=== PATIENT | female | born 1980 | race Hispanic/Latino ===

== ENCOUNTER 2016-06-08 08:55 | Day surgery (SDC) | payer MEDICARE ==
[~2016-06-08 08:55] MED LIST: ANCEF/STERILE WATER 2 GM/20 ML 20 ML IV NR; NACL 0.9% 1000 ML 1,000 ML IV SCH
--- NOTE | 2016-06-08 09:16 | Anesthesia Consultation ---
Anesthesia Consult and Med Hx Date of service: 06/08/16 - Airway Anesthetic Teeth Evaluation: Good ROM Head & Neck: Adequate Mental/Hyoid Distance: Adequate Mallampati Class: Class III Intubation Access Assessment: Possibly Difficult - Pulmonary Exam CTA: Yes - Cardiac Exam Cardiac Exam: RRR - Pre-Operative Health Status ASA Pre-Surgery Classification: ASA3 Proposed Anesthetic Plan: General, MAC - Pulmonary Hx Smoking: No Hx Sleep Apnea: No - Cardiovascular System Hx Hypertension: Yes Hx Cardia Arrhythmia: No - Central Nervous System Hx Psychiatric Problems: Yes - Gastrointestinal Hx Gastroesophageal Reflux Disease: Yes (severe, took nexium this am) - Endocrine Hx Renal Disease: Yes (DIALYSIS --; right chest permacath) Hx End Stage Renal Disease: Yes Hx Insulin Dependent Diabetes: Yes Hx Non-Insulin Dependent Diabetes: Yes (on no meds since on dialysis) Hx Thyroid Disease: Yes Hx Hypothyroidism: Yes - Hematic Hx Anemia: Yes - Other Systems Hx Cancer: No
--- NOTE | 2016-06-08 09:18 | Anesthesia Day of Surgery ---
Anesthesia Day of Surgery - Day of Surgery Patient Examined: Yes Patient H&P Reviewed: Yes Patient is NPO: Yes Beta Blockers: (took blue pill this am, ? metoproplol)
[2016-06-08] MEDS ORDERED: NORCO 5/325 PO PRN (09:20)
[2016-06-08] MEDS ORDERED: ZOFRAN IV PRN (09:20)
[2016-06-08] MEDS ORDERED: NACL BACTERIOSTATIC INFILTRATI ONE (09:34)
[2016-06-08] MEDS ORDERED: DIPRIVAN 10 MG/ML IV ONE (09:43)
[2016-06-08] MEDS ORDERED: SUBLIMAZE ONE (09:43)
[2016-06-08] MEDS ORDERED: XYLOCAINE MPF 2% ONE (09:46)
[2016-06-08] MEDS ORDERED: VERSED IV NR (10:00)
[2016-06-08 10:18] LABS: BUN/Creatinine Ratio 6.9; Calcium 8.8 mg/dL (8.4-10.2); Chloride 99.2 mmol/L (98-107); Potassium 4.1 mmol/L (3.6-5.0)
[2016-06-08 10:39] LABS: Hemoglobin 8.2 gm/dl (10.1-14.3); Mean Corpuscular HGB Conc 33 % (30-34); Mean Corpuscular Hemoglobin 41 pg (28-32); Platelet Count 115 K/mm3 (140-440); Red Blood Count 1.99 M/mm3 (3.65-5.03); Red Cell Distribution Width 18.2 % (13.2-15.2); White Blood Count 8.8 K/mm3 (4.5-11.0)
[2016-06-08 10:41] LABS: Mean Corpuscular Volume 126 fl (79-97)
[2016-06-08 10:49] LABS: INR 1.22 (0.87-1.13)
[2016-06-08 11:22] LABS: Anisocytosis 2+; Basophils % (Manual) 0 % (0.0-1.8); Blastocytes % (Manual) 0 %; Macrocytosis 2+
[2016-06-08 11:23] LABS: Diff Status Complete; Helmet Cells Rare; Platelet Estimate Appears Decreased; Polychromasia 1+; Stomatocytes 2+; Tear Drop Cells Few
[2016-06-08] MEDS ORDERED: MARCAINE 0.5% INFILTRATI ONE (11:28)
[2016-06-08] MEDS ORDERED: NACL 0.9% IR ONE (11:28)
[2016-06-08] MEDS ORDERED: HEPARIN 10,000 UNITS/10 ML 2,000 UNIT in NACL 0.9% 500 ML 500 ML IR ONE (11:31)
[2016-06-08] MEDS ORDERED: HEPARIN 10,000 UNITS/10 ML ONE (11:37)
[2016-06-08] MEDS ORDERED: DECADRON ONE (12:19)
--- NOTE | 2016-06-08 12:40 | Short Stay Summary ---
Short Stay Documentation Date of service: 06/08/16 Narrative H&P: See H&P - History H&P: obtained from office - Allergies and Medications Current Medications: Allergies metformin Adverse Reaction (Intermediate, Verified 01/10/16 02:52) Vomiting colchicine [From Colcrys] Adverse Reaction (Verified 01/10/16 02:52) Unknown quetiapine fumarate [From Seroquel] Adverse Reaction (Verified 01/10/16 02:52) HYPER Insomnia Home Medications Medication Instructions Recorded Confirmed Last Taken Type ARIPiprazole [Abilify TAB] 15 mg PO DAILY 07/21/15 06/07/16 06/07/16 20:00 History Divalproex ER [Depakote ER] 500 mg PO QDAY 07/21/15 06/07/16 06/07/16 20:00 History Levothyroxine [Synthroid] 25 mcg PO QAM 07/21/15 06/07/16 06/08/16 08:30 History Metoprolol [Lopressor TAB] 25 mg PO BID 07/21/15 06/07/16 06/07/16 20:00 History Oxybutynin [Ditropan] 5 mg PO BID 07/21/15 06/07/16 06/08/16 08:30 History Calcium Acetate 667 mg PO TID 11/01/15 06/07/16 06/07/16 20:00 History Docusate Sodium [Colace CAP] 1 tab PO DAILY 11/01/15 06/07/16 06/07/16 20:00 History FLUoxetine HCL [PROzac] 40 mg PO QDAY 11/01/15 06/07/16 06/07/16 20:00 History Esomeprazole Magnesium [NexIUM] 40 mg PO QDAY 11/16/15 06/07/16 06/08/16 08:30 History Mirtazapine 15 mg PO QDAY 11/16/15 06/07/16 06/07/16 20:00 History Dicyclomine [Bentyl] 10 mg PO TID PRN #15 capsule 01/12/16 06/07/16 06/07/16 20: 00 Rx ALBUTEROL Inhaler [ProAir HFA 2 puff IH QID PRN #1 inhalation 02/07/16 06/08/16 05/24/16 Rx Inhaler] hydrALAZINE [Apresoline TAB] 25 mg PO Q12H #60 tablet 05/20/16 06/07/16 08:30 Rx Warfarin [Coumadin] 2.5 mg PO QDAY 06/07/16 06/08/16 06/06/16 History Active Medications Hydromorphone HCl (Dilaudid) 0.25 mg IV Q10MIN PRN PRN Reason: Pain, Moderate (4-6) Stop: 06/11/16 09:21 Cefazolin Sodium (Ancef/Sterile Water 2 Gm/20 Ml) 20 mls @ 80 mls/hr IV PREOP NR PRN Reason: Protocol Stop: 06/09/16 00:05 Sodium Chloride (Nacl 0.9% 1000 Ml) 1,000 mls @ 42 mls/hr IV DIRECT LOUANN Last Admin: 06/08/16 10:25 Dose: 42 mls/hr Midazolam HCl (Versed) 2 mg IV PREOP NR Stop: 06/08/16 23:59 Last Admin: 06/08/16 10:38 Dose: 2 mg - Brief post op/procedure progress note Date of procedure: 06/08/16 Pre-op diagnosis: ESRD Post-op diagnosis: same Procedure: Creation of Left Femoral Artery to Left Femoral Vein AVG with 4-7 Step Propaten Graft Anesthesia: GETA Surgeon: EDWIGE GIRON Estimated blood loss: 50-100ml Pathology: none Condition: stable - Disposition Condition at discharge: Good Disposition: DISCHARGED TO HOME OR SELFCARE Short Stay Discharge Plan Activity: no restrictions, other Wound: open to air, keep clean and dry, other (Okay to wash the wound with soap and water but do not soak in water) Follow up with: EDWIGE GIRON MD [Staff Physician] - 14 Days Prescriptions: HYDROcodone/APAP 7.5-325 [[place] 7.5/325] 1 each PO Q6HR PRN #60 tablet PRN Reason: Pain
[2016-06-08] MEDS ORDERED: NACL 0.9% 500 ML ONE (13:00)
[2016-06-08] MEDS: DILAUDID IV PRN ×2 (13:12→13:23)
--- NOTE | 2016-06-08 13:33 | Post Anesthesia Evaluation ---
- Post Anesthesia Evaluation Patient Participated: Yes Airway Patent: Yes Stable Respiratory Function: Yes Nausea/Vomiting: No Temp > 96.8F: Yes Pain Manageable: Yes Adequeate Hydration: Yes Anesthesia Complications: No Block Receding Appropriately: Not Applicable Patient on Ventilator: No
[2016-06-08] MEDS ORDERED: HEPARIN 10,000 UNITS/10 ML IV ONE (14:05)
--- NOTE | 2016-06-08 14:11 | Admit Criteria Form ---
Admission Criteria Documentation: AMBULATORY SURGERY EXCEPTION CRITERIA Ambulatory Surgery Exception Criteria ( Place 'X' for any and all applicable criteria): Surgery or procedure performed on ambulatory basis may require inpatient stay for[A] ANY ONE of the following(1)(2)(3)(4)(5)(6)(7)(8)(9): [] I. A preoperative situation, condition, or finding that warrants inpatient stay as indicated by ANY ONE of the following: [] a) Inpatient care needed because of severity of a disease or condition rather than the surgery (eg, severe cardiac or respiratory disease, severe infection) (15) (16 ) (17) (18) [] b) Emergent procedure (eg, angioplasty for acute ischemia)(19) [] c) Complex surgical approach or situation as indicated by ANY ONE of the following(3): [] i) Open approach needed instead of usual endoscopic, transcatheter, or other less invasive procedure [] ii) Difficult approach because of previous operation [] iii) Airway monitoring required after open neck procedures(20)(21) [] iv) Large mass requiring unusually extensive dissection [] v) Additional complicating feature requiring inpatient care (eg, drain management)(22(23): [] d) Major surgery in a pt with high anesthetic risk as indicated by ANY ONE of the following (2)(3)(5)(7)(8): [] i) ASA risk class III or higher (severe systemic disease impairing function) [D] [] ii) Advanced age (eg, older than 85 years)(14)(24) [] iii) Symptomatic heart failure(25) [] iv) Symptomatic asthma or COPD(8)(21) [] v) Morbid obesity with hemodynamic or respiratory problems(20)( 21)(26)(27) [] vi) Obstructive sleep apnea(20)(21) [] vii) Former premature infants who are younger than 60 weeks [] viii) High risk for severe postoperative abnormalities (eg, severe postoperative hypocalcemia after parathyroidectomy for severe hyperparathyroidism)(27)( 28) [] ix) Unstable angina(25) [] e) Drug-related risk requiring inpatient stay as indicated by ANY ONE of the following(5)(10)(14)(32)(33) [] i) Procedure requires discontinuing drugs or other therapy (eg , antiarrhythmic medication, antiseizure medication), which necessitates inpatient observation or treatment.(18)(31) [] ii) Major surgery and high risk drug use as indicated by ANY ONE of the following: [] 1) Active abuse of cocaine or similar drug [] 2) Monoamine oxidase inhibitor use [] 3) Other drug identified as posing risk [] f) Inadequate outpatient care situation as indicated by ANY ONE of the following(5)(10)(14)(32)(33) [] i) Patient lives remote from medical facility and procedure has urgent complication potential, and temporary nearby residence cannot be arranged [] ii) Patient will have postprocedure incapacitation and inadequate assistance at home, or alternative level of care cannot be arranged. [] iii) Patient will have long general anesthesia or procedure side effect resolution time, and competent person to stay with patient on first postoperative night at home or alternative level of care cannot be arranged. []iv) Other inadequate outpatient situation that cannot be handled by other means [] II. A perioperative event, condition, or finding that warrants inpatient stay as indicated by ANY ONE of the following (1)(2)(3): [] a) Inadequate physiologic recovery: cardiovascular, respiratory, or hemodynamic status not normal or near preoperative baseline(18) [] b) Hemodynamic instability [] c) Patient not alert with near normal or baseline mental status [] d) Temperature not normal or as expected and not appropriate for outpatient treatment of condition [] e) Ambulatory or appropriate activity level status not yet achieved post procedure [E](34)(35)(36) [] f) Operative site not appropriate (eg, unexpected or excessive drainage or bleeding) [] g) Postoperative effects not resolved or adequately managed (eg, significant pain or vomiting not appropriate for outpatient or next level of care)(10)(12) [] h) Complicating features requiring inpatient care as indicated by ANY ONE of the following(37): [] i) Severe complications of procedure (eg, bowel injury, airway compromise, vascular injury,severe hemorrhage) [] ii) Extensive (eg, dissection far beyond usual scope of procedure ) or prolonged (eg, 120 minutes beyond usual) surgery needed requiring inpatient postoperative care [] iii) Conversion to an open or complex procedure that requires inpatient care (eg, open vs laparoscopic cholecystectomy, abdominal vs vaginal hysterectomy)(38) [] iv) Comorbid condition or test result identified during or post procedure that requires inpatient care (7) [] v) Malignant hyperthermia(30) [] vi) Other complicating feature requiring inpatient care(22)(23) Inpatient stay may be needed until ALL of the following are present (1)(2)(3)(4) (5)(6)(10)(14)(33)(40): []a) Physiologic recovery: cardiovascular, respiratory, and hemodynamic status normal or near preoperative baseline []b) Hemodynamic stability []c) Patient alert, with near normal or baseline mental status []d) Temperature appropriate: patient afebrile or temperature appropriate for outpt treatment of condition []e) Activity level appropriate: ambulatory or appropriate activity level post procedure []f) Operative site appropriate as indicated by ALL of the following: []i) Site dry or with expected drainage []ii) Any blood noted is as expected for procedure. []g) Postoperative effects resolved or managed as indicated by ALL of the following: []i) Pain management appropriate for outpatient (or next level of) care(10) []ii) Minimal nausea and vomiting: if present, successfully treated with oral medication(12) []iii) Headache, dizziness, or drowsiness (if present) are mild. []h) Voiding status acceptable as indicated by ANY ONE of the following: []i) Voiding spontaneously []ii) No voiding but instructions given for follow-up in 6 to 8 hours []iii) Urinary catheter in place, and instructions given for follow-up []i) Complicating features requiring inpatient care manageable at a lower level of care(37) []j) Comorbid conditions manageable at a lower level of care(37) The original [employer] content created by [employer] has been revised. The portions of the content which have been revised are identified through the use of italic text or in bold, and [facility] has neither reviewed nor approved the modified material. All other unmodified content is copyright [employer]. Please see references footnoted in the original [facility] edition 2016 Admission Criteria Met: Pending
[2016-06-08] MEDS ORDERED: HEPARIN IV ONE ×3 (15:00→17:00)
[2016-06-08] MEDS ORDERED: NORCO 7.5/325 PO PRN (15:21)
--- NOTE | 2016-06-08 15:48 | Operative Report ---
Operative Report Operative Report: Date of Procedure: 06/08/2016 Pre-operative Diagnosis: End-stage renal disease Post-operative Diagnosis: Same Procedure(s): 1. Creation of Left Femoral Artery To Left Femoral Vein Arteriovenous Loop Graft with 4-7 Propaten Step Graft Surgeon: Cal Costello M.D. Blocker Metal Base: None Anesthesia: Gen. endotracheal anesthesia EBL: Minimal Counts: Correct Complications: None Condition: Stable Findings: Successful creation of left thigh loop graft with excellent thrill and distal pulses at the end the case. Specimen: None Indication: The patient is a 36-year-old female with a history of end-stage renal disease was previous access in her upper extremity. 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 Given this central venous occlusion she is in need of her lower extremity access. She was given the risk , benefits, and alternative procedures and consented to procedure. Description of Procedure: The patient was brought to the operating room and laid in supine position. After general endotracheal anesthesia was achieved the left leg was prepped and draped in a sterile fashion. A longitudinal incision was created in the groin and carried down to the common femoral artery by sharp dissection. The artery was dissected out circumferentially and then control vessels. The femoral vein was then dissected out through the same incision using sharp dissection. The vein was then controlled with vessel loops. I used a Mey wick tunneler to tunnel the graft in a loop fashion also requiring a counterincision for the midportion of the tract. Once I pulled the graft tract and ensured that it was not kinked or twisted systemically heparinized patient. After heparinizing the patient I clamped the femoral artery and created an arteriotomy using 11 blade and Suárez scissors. I created end-to-side anastomosis with the 4 mm portion of the propaten graft and a 6-0 Prolene in a running fashion. After completing the anastomosis and released the clamps allow flow into the graft which had an excellent inflow. I then clamped the graft just distal to the anastomosis and beveled the venous sample. I clamped the femoral vein using a Satinsky clamp and then created a venotomy using an 11 blade and Suárez scissors. I then created an end-to-side anastomosis using a 6-0 Prolene in running fashion. After completing the anastomosis I released all clamps allowing flow through the graft which had an excellent thrill. Hemostasis within the wound was achieved with quick clot. Once hemostasis was achieved the wounds were anesthetized with Marcaine and counterincision was then closed in 2 layers using a 3-0 Vicryl in interrupted fashion and the deep dermal layer and a 4-0 Monocryl in interrupted fashion and the subcuticular then dressed with Dermabond. The groin wound was closed in 3 layers using 3-0 Vicryl in running fashion the deep layer. A 3-0 Vicryl was then used in running fashion to reapproximate the deep dermal layer. A 4-0 Monocryl was then used in running fashion subcuticular and the wound was then dressed with Dermabond. The patient tolerated the procedure well. All sponge, needle, and instrument counts were correct. The patient was taken to the recovery area in stable condition.
[2016-06-08 16:50] VITALS: BP 135/78
== END 2016-06-08 16:30 | disposition home or self-care (01) ==
LOC: OR 08:55
PROVIDERS: ATTEND Surgery Vascular Surgery
DX: E11.22 Type 2 diabetes mellitus with diabetic chronic kidney disease (principal); N18.6 End stage renal disease; Z99.2 Dependence on renal dialysis; E03.9 Hypothyroidism, unspecified; K21.9 Gastro-esophageal reflux disease without esophagitis; F20.89 Other schizophrenia; M10.9 Gout, unspecified; M19.90 Unspecified osteoarthritis, unspecified site
CPT/HCPCS: 36415; 36825; 80048; 81025; 82962; 85007; 85025; 85610; C1768; J0690; J1100; J1170; J1644; J2250; J2405; J2704; J3010; J7030; J7040

== ENCOUNTER 2016-06-11 15:19 | Inpatient (IN) | payer MEDICARE ==
--- NOTE | 2016-06-11 17:31 | Emergency Department Report ---
Chief Complaint: Dyspnea/Respdistress Stated Complaint: AYO/NUMBNESS IN LEFT LEG Time Seen by Provider: 06/11/16 17:26 - HPI History of Present Illness: Patient reports difficulty breathing during exertion, intermittent chest pain, tingling around the mouth, right arm and left leg that started at 0830 am, that progressively worsen during dialysis after 1 hour and 5 minutes of treatment. She was referred to the hospital by the physician at the dialysis center - [facility] Review of Systems: all other systems are unremarkable except for documentation in HPI - Exam Vital Signs: Vital Signs 06/11/16 15:38 Temperature 97.8 F Pulse Rate 93 H Respiratory 20 Rate Blood Pressure 118/71 O2 Sat by Pulse 98 Oximetry Physical Exam: Gen: well developed, NAD Cardio: heart sounds present S1-S2, no ectopy, murmur or gallops Resp: even and unlabored, lungs CTA dianna, no wheezes, rales or rhonchi MSE screening note: Focused history and physical exam performed. Due to findings the following was ordered: laboratory and radiology studies ordered ED Disposition for MSE Condition: Stable
[2016-06-11 18:40] LABS: INR 1.31 (0.87-1.13)
[2016-06-11 18:41] LABS: Partial Thromboplastin Time 41.2 Sec. (24.2-36.6)
[2016-06-11 18:58] LABS: Hemoglobin TNR gm/dl (10.1-14.3); Red Blood Count TNR M/mm3 (3.65-5.03); White Blood Count TNR K/mm3 (4.5-11.0)
[2016-06-11 18:59] LABS: Hematocrit TNR % (30.3-42.9); Mean Corpuscular HGB Conc TNR % (30-34); Mean Corpuscular Hemoglobin TNR pg (28-32); Mean Corpuscular Volume TNR fl (79-97)
[2016-06-11 19:00] LABS: Basophils % (Auto) TNR % (0.0-1.8); Diff Status TNR; Eosinophils % (Auto) TNR % (0.0-4.3); Mean Platelet Volume TNR fl (6-12); Platelet Count TNR K/mm3 (140-440); Red Cell Distribution Width TNR % (13.2-15.2)
[2016-06-11 19:35] LABS: Hematocrit 27.2 % (30.3-42.9); Hemoglobin 8.5 gm/dl (10.1-14.3); Mean Corpuscular HGB Conc 31 % (30-34); Mean Corpuscular Hemoglobin 41 pg (28-32); Platelet Count 184 K/mm3 (140-440); Red Blood Count 2.06 M/mm3 (3.65-5.03); Red Cell Distribution Width 18.6 % (13.2-15.2); White Blood Count 17.6 K/mm3 (4.5-11.0)
[2016-06-11 19:39] LABS: Mean Corpuscular Volume 132 fl (79-97)
[2016-06-11 20:15] LABS: Creatine Kinase MB 2.3 ng/mL (0.0-4.0)
[2016-06-11 20:18] LABS: Albumin 4.4 g/dL (3.9-5); Albumin/Globulin Ratio 1.5 %; Alkaline Phosphatase 64 units/L (35-129); Anion Gap 28 mmol/L; BUN/Creatinine Ratio 6.77; Bilirubin,Total 0.4 mg/dL (0.1-1.2); Blood Urea Nitrogen 40 mg/dL (7-17); Calcium 8.7 mg/dL (8.4-10.2); Carbon Dioxide 20 mmol/L (22-30); Chloride 92.3 mmol/L (98-107); Creatine Kinase 30 units/L (30-135); Glucose 144 mg/dL (65-100); Potassium 4.5 mmol/L (3.6-5.0); Sodium 136 mmol/L (137-145); Total Protein 7.4 g/dL (6.3-8.2)
[2016-06-11 20:19] LABS: Alanine Aminotransferase < 5 units/L (7-56)
[2016-06-11 20:52] LABS: Blastocytes % (Manual) 0 %
[2016-06-11 20:53] LABS: Anisocytosis 2+; Basophils % (Manual) 0 % (0.0-1.8); Eosinophils % (Manual) 0 % (0.0-4.3); Macrocytosis 3+
[2016-06-11 20:54] LABS: Stomatocytes 1+
[2016-06-11 20:55] LABS: Hypochromasia 1+; Polychromasia 1+; Tear Drop Cells 1+
[2016-06-11 20:57] LABS: Diff Status Complete; Giant Platelets Few; Large Platelets Few; Platelet Estimate Consistent w Auto; Poikilocytosis 1+
[2016-06-12] MEDS ORDERED: SUBLIMAZE IV ONE (00:22)
[2016-06-12] MEDS ORDERED: ZOFRAN IV ONE (00:22)
--- NOTE | 2016-06-12 00:30 | Emergency Department Report ---
HPI - General Chief Complaint: Dyspnea/Respdistress Time Seen by Provider: 06/12/16 00:01 - HPI HPI: Room 3 The patient is a 36-year-old female presenting with a chief complaint of chest pain and paresthesia. The patient states when she awakened this morning at 08: 0 she had numbness and tingling in her left foot and right arm in addition to both lateral facial numbness. Patient states she also had left chest pain which was sharp and pressure-like in nature associated with shortness of breath and nausea. Patient denies vomiting. The patient states she told her high lift driver this morning with the high lift driver Center to hemodialysis. Patient receive hemodialysis for 1 hour and 5 minutes but her symptoms worsened so hemodialysis. The patient was sent to the ED. The patient states she is still symptomatic and currently gives her pain a score of 10/10 Location: [see above] Duration: [see above] Quality: [see above] Severity: 10/10 Modifying factors: [see above] Context: [see above] Mode of transportation: [not driving] ED Past Medical Hx - Past Medical History Hx Hypertension: Yes Hx Diabetes: Yes Hx GERD: Yes Hx Renal Disease: Yes (DIALYSIS M-W-; right chest permacath) Hx Arthritis: Yes Hx Kidney Stones: Yes Hx Psychiatric Treatment: Yes (bipolar/ SCHIZOPHRENIA) Additional medical history: Gout; thyroid, hyperlipedemia - Surgical History Additional Surgical History: Foot surgery. PERMA CATH RIGHT LEG. AV graft placement to right arm. - Family History Family history: no significant - Social History Smoking Status: Never Smoker Substance Use Type: None - Medications Home Medications: Home Medications Medication Instructions Recorded Confirmed Last Taken Type ARIPiprazole [Abilify TAB] 15 mg PO DAILY 07/21/15 06/07/16 06/07/16 20:00 History Divalproex ER [Depakote ER] 500 mg PO QDAY 07/21/15 06/07/16 06/07/16 20:00 History Levothyroxine [Synthroid] 25 mcg PO QAM 07/21/15 06/07/16 06/08/16 08:30 History Metoprolol [Lopressor TAB] 25 mg PO BID 07/21/15 06/07/16 06/07/16 20:00 History Oxybutynin [Ditropan] 5 mg PO BID 07/21/15 06/07/16 06/08/16 08:30 History Calcium Acetate 667 mg PO TID 11/01/15 06/07/16 06/07/16 20:00 History Docusate Sodium [Colace CAP] 1 tab PO DAILY 11/01/15 06/07/16 06/07/16 20:00 History FLUoxetine HCL [PROzac] 40 mg PO QDAY 11/01/15 06/07/16 06/07/16 20:00 History Esomeprazole Magnesium [NexIUM] 40 mg PO QDAY 11/16/15 06/07/16 06/08/16 08:30 History Mirtazapine 15 mg PO QDAY 11/16/15 06/07/16 06/07/16 20:00 History Dicyclomine [Bentyl] 10 mg PO TID PRN #15 capsule 01/12/16 06/07/16 06/07/16 20: 00 Rx ALBUTEROL Inhaler [ProAir HFA 2 puff IH QID PRN #1 inhalation 02/07/16 06/08/16 05/24/16 Rx Inhaler] hydrALAZINE [Apresoline TAB] 25 mg PO Q12H #60 tablet 05/20/16 06/07/16 08:30 Rx Warfarin [Coumadin] 2.5 mg PO QDAY 06/07/16 06/08/16 06/06/16 History HYDROcodone/APAP 7.5-325 [[place] 1 each PO Q6HR PRN #60 tablet 06/08/16 Unknown Rx 7.5/325] ED Review of Systems ROS: Stated complaint: AYO/NUMBNESS IN LEFT LEG Other details as noted in HPI Comment: All other systems reviewed and negative Constitutional: denies: chills, fever Eyes: denies: eye pain, eye discharge, vision change ENT: denies: ear pain, throat pain Respiratory: shortness of breath Cardiovascular: chest pain Endocrine: no symptoms reported Gastrointestinal: nausea. denies: vomiting Genitourinary: denies: urgency, dysuria, discharge Musculoskeletal: denies: back pain, joint swelling, arthralgia Skin: denies: rash, lesions Neurological: paresthesias Psychiatric: denies: anxiety, depression Hematological/Lymphatic: denies: easy bleeding, easy bruising Physical Exam - Physical Exam Vital Signs: Vital Signs 06/11/16 06/11/16 06/11/16 15:38 23:30 23:56 Temperature 97.8 F 98.7 F Pulse Rate 93 H 89 Respiratory 20 14 14 Rate Blood Pressure 118/71 Blood Pressure 126/84 [Left] O2 Sat by Pulse 98 99 99 Oximetry Physical Exam: GENERAL: The patient is well-nourished female lying on stretcher not appearing to be in acute distress. [] HEENT: Atraumatic. Extraocular motions are intact. Patient has moist mucous membranes. NECK: Supple. Trachea midline CHEST/LUNGS: Clear to auscultation. There is no respiratory distress noted. HEART/CARDIOVASCULAR: Regular. There is no tachycardia. There is no gallop rub or murmur. ABDOMEN: Abdomen is soft, nontender. Patient has normal bowel sounds. There is no abdominal distention. SKIN: There is no rash. There is no edema. There is no diaphoresis. NEURO: The patient is awake, alert, and oriented. The patient is cooperative. The patient has no focal neurologic deficits. The patient has normal speech. Cranial nerves II through XII grossly intact, no drift. Sensation equal bilaterally MUSCULOSKELETAL: There is no evidence of acute injury. ED Course Vital Signs 06/11/16 06/11/16 06/11/16 15:38 23:30 23:56 Temperature 97.8 F 98.7 F Pulse Rate 93 H 89 Respiratory 20 14 14 Rate Blood Pressure 118/71 Blood Pressure 126/84 [Left] O2 Sat by Pulse 98 99 99 Oximetry ED Medical Decision Making - Lab Data Result diagrams: 06/11/16 19:15 06/11/16 19:15 Laboratory Tests 06/11/16 06/11/16 06/11/16 18:04 18:04 19:15 WBC TNR RBC TNR Hgb TNR Hct TNR MCV TNR MCH TNR MCHC TNR RDW TNR Plt Count TNR Lymph % (Auto) TNR [place] % (Auto) TNR Eos % (Auto) TNR Baso % (Auto) TNR Lymph # TNR [place] # TNR Eos # TNR Baso # TNR Add Manual Diff TNR Total Counted Cancelled Seg Neutrophils % TNR Seg Neuts % (Manual) Cancelled Band Neutrophils % Cancelled Lymphocytes % (Manual) Cancelled Reactive Lymphs % (Man) Cancelled Monocytes % (Manual) Cancelled Eosinophils % (Manual) Cancelled Basophils % (Manual) Cancelled Metamyelocytes % Cancelled Myelocytes % Cancelled Promyelocytes % Cancelled Blast Cells % Cancelled Nucleated RBC % Cancelled Seg Neutrophils # TNR Seg Neutrophils # Man Cancelled Band Neutrophils # Cancelled Lymphocytes # (Manual) Cancelled Abs React Lymphs (Man) Cancelled Monocytes # (Manual) Cancelled Eosinophils # (Manual) Cancelled Basophils # (Manual) Cancelled Metamyelocytes # Cancelled Myelocytes # Cancelled Promyelocytes # Cancelled Blast Cells # Cancelled WBC Morphology Cancelled Hypersegmented Neuts Cancelled Hyposegmented Neuts Cancelled Hypogranular Neuts Cancelled Hypersegmented Polys Cancelled Smudge Cells Cancelled Toxic Granulation Cancelled Toxic Vacuolation Cancelled Dohle Bodies Cancelled Pelger-Huet Anomaly Cancelled Le Rods Cancelled Platelet Estimate Cancelled Clumped Platelets Cancelled Plt Clumps, EDTA Cancelled Large Platelets Cancelled Giant Platelets Cancelled Platelet Satelliting Cancelled Plt Morphology Comment Cancelled RBC Morphology Cancelled Dimorphic RBCs Cancelled Polychromasia Cancelled Hypochromasia Cancelled Poikilocytosis Cancelled Basophilic Stippling Cancelled Anisocytosis Cancelled Microcytosis Cancelled Macrocytosis Cancelled Spherocytes Cancelled Pappenheimer Bodies Cancelled Sickle Cells Cancelled Target Cells Cancelled Tear Drop Cells Cancelled Ovalocytes Cancelled Stomatocytes Cancelled Helmet Cells Cancelled [place] Bodies Cancelled [place] Rings Cancelled [place] Cells Cancelled Bite Cells Cancelled Crenated Cell Cancelled Elliptocytes Cancelled Acanthocytes (Spur) Cancelled Rouleaux Cancelled Hemoglobin C Crystals Cancelled Schistocytes Cancelled Malaria parasites Cancelled Abdiel Bodies Cancelled Hem Pathologist Commnt Cancelled PT 16.2 H INR 1.31 H APTT 41.2 H Sodium 136 L Potassium 4.5 Chloride 92.3 L Carbon Dioxide 20 L Anion Gap 28 BUN 40 H Creatinine 5.9 H Estimated GFR 8 BUN/Creatinine Ratio 6.77 Glucose 144 H Calcium 8.7 Total Bilirubin 0.4 AST 25 ALT < 5 L Alkaline Phosphatase 64 Total Creatine Kinase 30 CK-MB (CK-2) 2.3 CK-MB (CK-2) Rel Index 7.6 H Troponin T < 0.010 Total Protein 7.4 Albumin 4.4 Albumin/Globulin Ratio 1.5 Valproic Acid 06/11/16 06/11/16 06/12/16 19:15 19:25 00:45 WBC 17.6 H RBC 2.06 L Hgb 8.5 L Hct 27.2 L MCV 132 H MCH 41 H MCHC 31 RDW 18.6 H Plt Count 184 Lymph % (Auto) [place] % (Auto) Eos % (Auto) Baso % (Auto) Lymph # [place] # Eos # Baso # Add Manual Diff Complete Total Counted 100 Seg Neutrophils % Seg Neuts % (Manual) 72.0 H Band Neutrophils % 2.0 Lymphocytes % (Manual) 14.0 Reactive Lymphs % (Man) 0 Monocytes % (Manual) 7.0 Eosinophils % (Manual) 0 Basophils % (Manual) 0 Metamyelocytes % 5.0 Myelocytes % 0 Promyelocytes % 0 Blast Cells % 0 Nucleated RBC % 6.0 H Seg Neutrophils # Seg Neutrophils # Man 12.7 H Band Neutrophils # 0.4 Lymphocytes # (Manual) 2.5 Abs React Lymphs (Man) 0.0 Monocytes # (Manual) 1.2 H Eosinophils # (Manual) 0.0 Basophils # (Manual) 0.0 Metamyelocytes # 0.9 Myelocytes # 0.0 Promyelocytes # 0.0 Blast Cells # 0.0 WBC Morphology Not Reportable Hypersegmented Neuts Not Reportable Hyposegmented Neuts Not Reportable Hypogranular Neuts Not Reportable Hypersegmented Polys Smudge Cells Not Reportable Toxic Granulation Not Reportable Toxic Vacuolation Not Reportable Dohle Bodies Not Reportable Pelger-Huet Anomaly Not Reportable Le Rods Not Reportable Platelet Estimate Consistent w auto Clumped Platelets Not Reportable Plt Clumps, EDTA Not Reportable Large Platelets Few Giant Platelets Few Platelet Satelliting Not Reportable Plt Morphology Comment Not Reportable RBC Morphology Not Reportable Dimorphic RBCs Not Reportable Polychromasia 1+ Hypochromasia 1+ Poikilocytosis 1+ Basophilic Stippling Anisocytosis 2+ Microcytosis Not Reportable Macrocytosis 3+ Spherocytes Not Reportable Pappenheimer Bodies Not Reportable Sickle Cells Not Reportable Target Cells Not Reportable Tear Drop Cells 1+ Ovalocytes Not Reportable Stomatocytes 1+ Helmet Cells Not Reportable [place] Bodies Not Reportable [place] Rings Not Reportable [place]y Cells Not Reportable Bite Cells Not Reportable Crenated Cell Not Reportable Elliptocytes Not Reportable Acanthocytes (Spur) Not Reportable Rouleaux Not Reportable Hemoglobin C Crystals Not Reportable Schistocytes Not Reportable Malaria parasites Not Reportable Abdiel Bodies Not Reportable Hem Pathologist Commnt No PT INR APTT Sodium Potassium Chloride Carbon Dioxide Anion Gap BUN Creatinine Estimated GFR BUN/Creatinine Ratio Glucose Calcium Total Bilirubin AST ALT Alkaline Phosphatase Total Creatine Kinase CK-MB (CK-2) CK-MB (CK-2) Rel Index Troponin T < 0.010 Total Protein Albumin Albumin/Globulin Ratio Valproic Acid 6.4 L - EKG Data -: EKG Interpreted by Me EKG shows normal: sinus rhythm Rate: normal - EKG Data When compared to previous EKG there are: no significant change Interpretation: unchanged when compared t (05/25/2016) - Radiology Data Radiology results: report reviewed (CT head), image reviewed (chest x-ray, CT head) interpreted by me: Chest x-ray-no focal infiltrates, no pneumothorax CT head (read by radiologist)-there is no evidence of an acute intracranial process - Differential Diagnosis CVA, ACS, pericarditis, GERD Critical care attestation.: If time is entered above; I have spent that time in minutes in the direct care of this critically ill patient, excluding procedure time. ED Disposition Clinical Impression: Chest pain, ESRD (end stage renal disease) on dialysis, Left leg numbness, Right arm numbness Disposition: OP ADMITTED IP TO THIS HOSP Is pt being admited?: Yes Does the pt Need Aspirin: Yes Condition: Fair Instructions: Chest Pain (ED) Time of Disposition: 01:50 (hospitalist paged)
--- NOTE | 2016-06-12 01:22 | Cat Scan Report ---
FINAL REPORT PROCEDURE: CT HEAD/BRAIN WO CON TECHNIQUE: Computerized tomography of the head was performed without contrast material. HISTORY: RUE and LLE numbness COMPARISON: No prior studies are available for comparison. FINDINGS: Skull and scalp: Normal. Paranasal sinuses: Normal. Ventricles and subarachnoid spaces: Normal. Cerebrum: No evidence of hemorrhage, acute infarction or mass . Cerebellum and brainstem: No evidence of hemorrhage, acute infarction or mass. Vasculature: Normal. Comments: None. IMPRESSION: There is no evidence of an acute intracranial process
[2016-06-12] MEDS ORDERED: ASPIRIN PO ONE (01:50)
[2016-06-12] MEDS ORDERED: BENTYL PO PRN (02:32)
--- NOTE | 2016-06-12 03:02 | Admit Criteria Form ---
Admission Criteria Documentation: RENAL FAILURE, CHRONIC Clinical Indications for Admission to Inpatient Care (Place 'X' for any and all applicable criteria): Admission is indicated for ANY ONE of the following (1)(2)(3)(4)(5): [X ]I. Inpatient admission required rather than observation care (Use Renal Failure, Chronic: Observation Care Criteria as appropriate) because of ANY ONE of the following: [ ]a) Volume overload or uremic symptoms (eg, clinically significant pulmonary edema, hypertension, pericarditis, acidosis) too severe for, or not responsive (eg, for over 24 hours) to emergency department or observation care dialysis or treatment regimen (11) [ ]b) Hemodynamic instability that is severe or persistent [ ]c) Respiratory distress that is severe or persistent (11) [ ]d) Clinically significant electrolyte abnormality that requires inpatient care (eg,hyperkalemia with severe ECG findings)[B] [ ]e) Supplement O2 or respiratory therapy for over 24hrs that is performable only in acute inpatient setting [ ]f) Continuous IV infusion of anticoagulation, platelet inhibitor, vasoactive, or Antiarrhythmic medication (15), [ ]g) Pulmonary artery catheter monitoring [ ]h) Temporary pacemaker placement [ ]i) Emergent pericardiocentesis [X ]j) Other condition, treatment or monitoring requiring inpatient admission [ ]II. Unexplained syncope [A] [ ]III. Recurrent seizures [ ]IV. Severe infections not treatable in outpatient setting (eg, peritonitis)(9 ) [ ]V. Cardiac arrhythmias of immediate concern [ ]. Encephalopathy [ ]VII.Bleeding abnormalities (eg, platelet dysfunction) with active (eg, gastrointestinal) bleeding Extended stay beyond goal length of stay may be needed for (3)(4)(35)(36): [ ]a) Continuing uremic complications [ ]b) Comorbidities or complications The original [employer] content created by [employer] has been revised. The portions of the content which have been revised are identified through the use of italic text or in bold, and [email or web address] has neither reviewed nor approved the modified material. All other unmodified content is copyright [employer]. Please see references footnoted in the original [email or web address] edition 2016 Admission Criteria Met: Yes
[2016-06-12] MEDS ORDERED: SUBLIMAZE ONE (03:41)
--- NOTE | 2016-06-12 05:41 | History and Physical Report ---
History of Present Illness Date of admission: 06/12/16 02:35 Medications and Allergies Allergies Allergy/AdvReac Type Severity Reaction Status Date / Time metformin AdvReac Intermediate Vomiting Verified 01/10/16 02:52 colchicine [From Colcrys] AdvReac Unknown Verified 01/10/16 02:52 quetiapine fumarate AdvReac HYPER Verified 01/10/16 02:52 [From Seroquel] Home Medications Medication Instructions Recorded Confirmed Last Taken Type ARIPiprazole [Abilify TAB] 15 mg PO DAILY 07/21/15 06/07/16 06/07/16 20:00 History Divalproex ER [Depakote ER] 500 mg PO QDAY 07/21/15 06/07/16 06/07/16 20:00 History Levothyroxine [Synthroid] 25 mcg PO QAM 07/21/15 06/07/16 06/08/16 08:30 History Metoprolol [Lopressor TAB] 25 mg PO BID 07/21/15 06/07/16 06/07/16 20:00 History Oxybutynin [Ditropan] 5 mg PO BID 07/21/15 06/07/16 06/08/16 08:30 History Calcium Acetate 667 mg PO TID 11/01/15 06/07/16 06/07/16 20:00 History Docusate Sodium [Colace CAP] 1 tab PO DAILY 11/01/15 06/07/16 06/07/16 20:00 History FLUoxetine HCL [PROzac] 40 mg PO QDAY 11/01/15 06/07/16 06/07/16 20:00 History Esomeprazole Magnesium [NexIUM] 40 mg PO QDAY 11/16/15 06/07/16 06/08/16 08:30 History Mirtazapine 15 mg PO QDAY 11/16/15 06/07/16 06/07/16 20:00 History Dicyclomine [Bentyl] 10 mg PO TID PRN #15 capsule 01/12/16 06/07/16 06/07/16 20: 00 Rx ALBUTEROL Inhaler [ProAir HFA 2 puff IH QID PRN #1 inhalation 02/07/16 06/08/16 05/24/16 Rx Inhaler] hydrALAZINE [Apresoline TAB] 25 mg PO Q12H #60 tablet 05/20/16 06/07/16 08:30 Rx Warfarin [Coumadin] 2.5 mg PO QDAY 06/07/16 06/08/16 06/06/16 History HYDROcodone/APAP 7.5-325 [[place] 1 each PO Q6HR PRN #60 tablet 06/08/16 Unknown Rx 7.5/325] Active Meds: Active Medications Aripiprazole (Abilify) 15 mg PO DAILY [facility] Dicyclomine HCl (Bentyl) 10 mg PO TID PRN PRN Reason: Pain Divalproex Sodium (Depakote Er) 500 mg PO QDAY [facility] Fluoxetine HCl (Prozac) 40 mg PO QDAY [facility] Hydralazine HCl (Apresoline) 25 mg PO Q12HR [facility] Levothyroxine Sodium (Synthroid) 25 mcg PO DAILY@0600 [facility] Metoprolol Tartrate (Lopressor) 25 mg PO BID [facility] Mirtazapine (Remeron) 15 mg PO QDAY [facility] Oxybutynin Chloride (Ditropan) 5 mg PO BID [facility] Pantoprazole Sodium (Protonix) 40 mg PO DAILY [facility] Exam - Constitutional Vitals: Temp Pulse Resp BP Pulse Ox 98.7 F 89 14 126/84 99 06/11/16 23:56 06/11/16 23:56 06/11/16 23:56 06/11/16 23:56 06/11/16 23:56 Results - Labs CBC & Chem 7: 06/11/16 19:15 06/11/16 19:15
--- NOTE | 2016-06-12 05:43 | History and Physical Report ---
History of Present Illness Date of examination: 06/12/16 Date of admission: 06/12/16 02:35 History of present illness: 36-year-old woman with a history of end-stage renal disease on dialysis Saturday, Saturday, Saturday, diabetes, hypertension, hyperlipidemia, bipolar, schizophrenia, hypothyroidism comes emergency room complaining of generalized weakness, chest pain . She also complaining of shortness of breath, lightheadedness and feels like she is going to pass out. Chest pain is in the left chest which she describes a dull pain, constant, no radiation, intensity 4/ 10. She cannot identify exacerbating or relieving factors . Her symptoms have been persistent since Saturday . She went to dialysis yesterday, she already received an hour of treatment, she was sent to the emergency room for further evaluation. She had a stress tests in november 2015 just negative. Admits to nausea, no vomiting palpitation or diaphoresis, also complained of numbness in the legs Patient denies palpitation, shortness of breath, cough, abdominal pain, hematochezia, dysuria, frequency, focal weakness, dysarthria, fever chills, polydipsia polyuria, hot or cold intolerance, easy bruisability, or rash or bleeding from mucosal membrane, rhinorrhea, epistaxis, earache, tinnitus, blurry vision, eye discharge, anxiety, depression. Other review of systems negative PAST SURGICAL HISTORY: Foot surgery, AV graft SOCIAL HISTORY: Denies alcohol, tobacco, drugs FAMILY HISTORY: Hypertension Medications and Allergies Allergies Allergy/AdvReac Type Severity Reaction Status Date / Time metformin AdvReac Intermediate Vomiting Verified 01/10/16 02:52 colchicine [From Colcrys] AdvReac Unknown Verified 01/10/16 02:52 quetiapine fumarate AdvReac HYPER Verified 01/10/16 02:52 [From Seroquel] Home Medications Medication Instructions Recorded Confirmed Last Taken Type ARIPiprazole [Abilify TAB] 15 mg PO DAILY 07/21/15 06/07/16 06/07/16 20:00 History Divalproex ER [Depakote ER] 500 mg PO QDAY 07/21/15 06/07/16 06/07/16 20:00 History Levothyroxine [Synthroid] 25 mcg PO QAM 07/21/15 06/07/16 06/08/16 08:30 History Metoprolol [Lopressor TAB] 25 mg PO BID 07/21/15 06/07/16 06/07/16 20:00 History Oxybutynin [Ditropan] 5 mg PO BID 07/21/15 06/07/16 06/08/16 08:30 History Calcium Acetate 667 mg PO TID 11/01/15 06/07/16 06/07/16 20:00 History Docusate Sodium [Colace CAP] 1 tab PO DAILY 11/01/15 06/07/16 06/07/16 20:00 History FLUoxetine HCL [PROzac] 40 mg PO QDAY 11/01/15 06/07/16 06/07/16 20:00 History Esomeprazole Magnesium [NexIUM] 40 mg PO QDAY 11/16/15 06/07/16 06/08/16 08:30 History Mirtazapine 15 mg PO QDAY 11/16/15 06/07/16 06/07/16 20:00 History Dicyclomine [Bentyl] 10 mg PO TID PRN #15 capsule 01/12/16 06/07/16 06/07/16 20: 00 Rx ALBUTEROL Inhaler [ProAir HFA 2 puff IH QID PRN #1 inhalation 02/07/16 06/08/16 05/24/16 Rx Inhaler] hydrALAZINE [Apresoline TAB] 25 mg PO Q12H #60 tablet 05/20/16 06/07/16 08:30 Rx Warfarin [Coumadin] 2.5 mg PO QDAY 06/07/16 06/08/16 06/06/16 History HYDROcodone/APAP 7.5-325 [[place] 1 each PO Q6HR PRN #60 tablet 06/08/16 Unknown Rx 7.5/325] Active Meds: Active Medications Aripiprazole (Abilify) 15 mg PO DAILY [facility] Dicyclomine HCl (Bentyl) 10 mg PO TID PRN PRN Reason: Pain Divalproex Sodium (Depakote Er) 500 mg PO QDAY [facility] Fluoxetine HCl (Prozac) 40 mg PO QDAY [facility] Hydralazine HCl (Apresoline) 25 mg PO Q12HR [facility] Levothyroxine Sodium (Synthroid) 25 mcg PO DAILY@0600 [facility] Metoprolol Tartrate (Lopressor) 25 mg PO BID [facility] Mirtazapine (Remeron) 15 mg PO QDAY [facility] Oxybutynin Chloride (Ditropan) 5 mg PO BID [facility] Pantoprazole Sodium (Protonix) 40 mg PO DAILY [facility] Exam - Physical Exam Narrative exam: Gen. appearance: Patient lying in bed, no apparent distress HEENT: Normocephalic, atraumatic, pupils equally round and reactive to light, extraocular movement intact, and no sclericterus,. No JVD or thyromegaly or nodule,neck supple, no carotid bruit ,mucous membranes moist, no exudate or erythema Heart: S1, S2, regular rate and rhythm Lungs: Clear to auscultation bilaterally, breathing comfortable Abdomen: Positive bowel sounds, nontender, nondistended, no organomegaly Extremity: No edema, cyanosis, clubbing Skin: No rash, nodules, warm, dry Neuro: Oriented 3, cranial nerves II-12 intact, speech is fluent, motor and sensory intact - Constitutional Vitals: Temp Pulse Resp BP Pulse Ox 98.7 F 89 14 126/84 99 06/11/16 23:56 06/11/16 23:56 06/11/16 23:56 06/11/16 23:56 06/11/16 23:56 Results - Labs CBC & Chem 7: 06/11/16 19:15 06/11/16 19:15 - Imaging and Cardiology EKG: image reviewed Chest x-ray: image reviewed CT Scan - head: report reviewed Assessment and Plan Fluid overload due to decreased dialysis treatment Chest pain Leukocytosis, rule out infection End-stage renal disease on dialysis Bipolar Schizophrenia Hypothyroidism Hypertension Diabetes type 2 Hyperlipidemia Admits medicine Consult renal for dialysis, cardiac enzymes, consult cardiology Start empiric antibiotics, obtain blood cultures Continue appropriate outpatient medication, start DVT prophylaxis
[2016-06-12] MEDS ORDERED: SODIUM CHLORIDE FLUSH SYRINGE 10 ML IV PRN (08:34)
[2016-06-12] MEDS ORDERED: PROVENTIL IH PRN (08:34)
[2016-06-12] MEDS ORDERED: DULCOLAX PR PRN (08:34)
[2016-06-12] MEDS ORDERED: MILK OF MAGNESIA PO PRN (08:34)
[2016-06-12] MEDS ORDERED: ZOFRAN IV PRN (08:34)
[2016-06-12] MEDS ORDERED: NON-FORMULARY (Esomeprazole Magnesium [Nexium] 40 MG) PO SCH (10:00)
[2016-06-12] MEDS ORDERED: SYNTHROID PO SCH (10:00)
[2016-06-12] MEDS ORDERED: NON-FORMULARY (Fluoxetine Hcl [Prozac] 40 MG) PO SCH (10:00)
--- NOTE | 2016-06-12 10:16 | Consultation ---
History of Present Illness Consult date: 06/12/16 Requesting physician: SAYDA GENTILE Consult reason: chest pain History of present illness: The patient is a 36 year old female with a history of ESRD on HD, hypertension, diabetes who presented with complaints of intermittent substernal chest pain that started yesterday. She describes the pain as "sharp" and states is worse with deep inspiration. Associated with shortness of breath, nausea, dizziness and lightheadedness. No palpitations, vomiting or diaphoresis. She also reports numbness and tingling in her right arm ongoing for several weeks. Troponin negative. Lexiscan thallium stress test done 11/2015 was negative for ischemia. Echo done 02/2016 showed EF 60-65%. Past History Past Medical History: diabetes, dialysis, ESRD, hypertension, other (bipolar disorder, schizophrenia) Past Surgical History: Other (foot surgery, AV fistula, permacath placement) Social history: other (lives in a personal residential). denies: smoking, alcohol abuse, prescription drug abuse, IV drug use Family history: no significant family history Medications and Allergies Allergies Allergy/AdvReac Type Severity Reaction Status Date / Time metformin AdvReac Intermediate Vomiting Verified 01/10/16 02:52 colchicine [From Colcrys] AdvReac Unknown Verified 01/10/16 02:52 quetiapine fumarate AdvReac HYPER Verified 01/10/16 02:52 [From Seroquel] Home Medications Medication Instructions Recorded Confirmed Last Taken Type ARIPiprazole [Abilify TAB] 15 mg PO DAILY 07/21/15 06/07/16 06/07/16 20:00 History Divalproex ER [Depakote ER] 500 mg PO QDAY 07/21/15 06/07/16 06/07/16 20:00 History Levothyroxine [Synthroid] 25 mcg PO QAM 07/21/15 06/07/16 06/08/16 08:30 History Metoprolol [Lopressor TAB] 25 mg PO BID 07/21/15 06/07/16 06/07/16 20:00 History Oxybutynin [Ditropan] 5 mg PO BID 07/21/15 06/07/16 06/08/16 08:30 History Calcium Acetate 667 mg PO TID 11/01/15 06/07/16 06/07/16 20:00 History Docusate Sodium [Colace CAP] 1 tab PO DAILY 11/01/15 06/07/16 06/07/16 20:00 History FLUoxetine HCL [PROzac] 40 mg PO QDAY 11/01/15 06/07/16 06/07/16 20:00 History Esomeprazole Magnesium [NexIUM] 40 mg PO QDAY 11/16/15 06/07/16 06/08/16 08:30 History Mirtazapine 15 mg PO QDAY 11/16/15 06/07/16 06/07/16 20:00 History Dicyclomine [Bentyl] 10 mg PO TID PRN #15 capsule 01/12/16 06/07/16 06/07/16 20: 00 Rx ALBUTEROL Inhaler [ProAir HFA 2 puff IH QID PRN #1 inhalation 02/07/16 06/08/16 05/24/16 Rx Inhaler] hydrALAZINE [Apresoline TAB] 25 mg PO Q12H #60 tablet 05/20/16 06/07/16 08:30 Rx Warfarin [Coumadin] 2.5 mg PO QDAY 06/07/16 06/08/16 06/06/16 History HYDROcodone/APAP 7.5-325 [[place] 1 each PO Q6HR PRN #60 tablet 06/08/16 Unknown Rx 7.5/325] Active Meds: Active Medications Acetaminophen (Tylenol) 650 mg PO Q4H PRN PRN Reason: Pain MILD(1-3)/Fever >100.5/POLK Albuterol (Proventil) 2.5 mg IH Q3HRT PRN PRN Reason: Shortness Of Breath Aripiprazole (Abilify) 15 mg PO DAILY [facility] Aspirin (Baby Aspirin) 81 mg PO QDAY [facility] Bisacodyl (Dulcolax) 10 mg CA QDAY PRN PRN Reason: Constipation unrelieved by MOM Dicyclomine HCl (Bentyl) 10 mg PO TID PRN PRN Reason: Pain Divalproex Sodium (Depakote Er) 500 mg PO QDAY [facility] Enoxaparin Sodium (Lovenox) 30 mg SUB-Q QDAY [facility] Fluoxetine HCl (Prozac) 40 mg PO QDAY [facility] Hydralazine HCl (Apresoline) 25 mg PO Q12HR [facility] Levofloxacin (Levaquin) 500 mg PO Q24HR [facility] Levothyroxine Sodium (Synthroid) 25 mcg PO DAILY@0600 [facility] Magnesium Hydroxide (Milk Of Magnesia) 30 ml PO Q4H PRN PRN Reason: Constipation Metoprolol Tartrate (Lopressor) 25 mg PO BID [facility] Mirtazapine (Remeron) 15 mg PO QDAY [facility] Ondansetron HCl (Zofran) 4 mg IV Q8H PRN PRN Reason: N/V unrelieved by Reglan Oxybutynin Chloride (Ditropan) 5 mg PO BID [facility] Pantoprazole Sodium (Protonix) 40 mg PO DAILY [facility] Sodium Chloride (Sodium Chloride Flush Syringe 10 Ml) 10 ml IV PRN PRN PRN Reason: LINE FLUSH Stop: 06/22/16 08:33 Review of Systems Constitutional: no fever, no chills Ears, nose, mouth and throat: no nasal congestion, no nasal discharge, no sinus pressure Cardiovascular: chest pain, lightheadedness, shortness of breath, no palpitations Respiratory: shortness of breath, no cough, no congestion, no wheezing Gastrointestinal: nausea, no abdominal pain, no vomiting, no diarrhea Genitourinary Female: no dysuria, no urgency Musculoskeletal: no neck stiffness, no neck pain, no myalgias Integumentary: no rash, no pruritis Neurological: no parathesias, no numbness, no tingling, no headaches Endocrine: no cold intolerance, no heat intolerance Hematologic/Lymphatic: no easy bruising, no easy bleeding Allergic/Immunologic: no urticaria, no wheezing Physical Examination Vital Signs Temp Pulse Resp BP Pulse Ox 97.8 F 93 H 20 118/71 98 06/11/16 15:38 06/11/16 15:38 06/11/16 15:38 06/11/16 15:38 06/11/16 15:38 General appearance: no acute distress HEENT: Positive: Normocephaly, Mucus Membranes Moist Neck: Positive: neck supple, trachea midline Cardiac: Positive: Reg Rate and Rhythm, S1/S2 Lungs: Positive: clear to auscultation Neuro: Positive: Grossly Intact Abdomen: Positive: Soft, Active Bowel Sounds. Negative: Tender Skin: Positive: Clear. Negative: Rash Musculoskeletal: Normal Range of Motion Extremities: Present: normal. Absent: edema Results 06/11/16 19:15 06/11/16 19:15 - Imaging and Cardiology Echo: report reviewed (02/2016: EF 60-65%) EKG: image reviewed EKG interpretations - Telemetry EKG Rhythm: Sinus Rhythm - EKG Sinus rhythms and dysrhythmias: sinus rhythm Chamber hypertrophy or enlargement: left ventricular hypertro Assessment and Plan Atypical chest pain troponin negative no acute EKG changes stress MPI 11/2015: no ischemia Echo 02/2016: EF 60-65% ESRD on HD Hypertension Diabetes Bipolar/schizophrenia Given atypical chest pain, negative troponin and recent negative stress test, recommend continuing medical management. The patient has been seen in conjunction with Dr. Kay who agrees with the assessment and plan of care. Thank you Dr. Gentile for allowing us to participate in the care of this patient.
[2016-06-12] MEDS ORDERED: NACL 0.9% 1000 ML 100 ML IV PRN (10:54)
[2016-06-12] MEDS ORDERED: HEPARIN 10,000 UNITS/10 ML IV PRN (10:54)
[2016-06-12] MEDS: APRESOLINE PO SCH ×2 (10:58→21:29)
[2016-06-12] MEDS: ABILIFY PO SCH (10:58)
[2016-06-12] MEDS: SYNTHROID PO SCH (10:58)
[2016-06-12] MEDS: DITROPAN PO SCH ×2 (10:59→21:28)
[2016-06-12] MEDS: LEVAQUIN PO SCH (10:59)
[2016-06-12] MEDS: LOVENOX SUB-Q SCH (10:59)
[2016-06-12] MEDS: LOPRESSOR PO SCH ×2 (10:59→21:39)
[2016-06-12 11:08] LABS: Creatine Kinase MB 1.8 ng/mL (0.0-4.0)
[2016-06-12] MEDS: REMERON PO SCH (11:10)
[2016-06-12] MEDS: PROzac PO SCH (11:11)
[2016-06-12] MEDS: PROTONIX PO SCH (11:11)
[2016-06-12] MEDS ORDERED: PNEUMOVAX 23 IM ONE (11:23)
[2016-06-12] MEDS: PROCRIT IV PRN (15:26)
[2016-06-12] MEDS: HEPARIN IV PRN (15:42)
--- NOTE | 2016-06-12 17:36 | Event Note ---
Date: 06/12/16 Patient seen and evaluated medical records reviewed Admitted this morning with chest pain and shortness of breath received hemodialysis Feels slightly better, cardiology evaluated for chest pain, recent negative stress test and normal left ventricular function Advised medical management Patient denies any chest pain shortness of breath, alert awake oriented 3 physical examination no new changes Continue current management, possible discharge home tomorrow if stable Of care discussed with the patient her nurse as well as the case management
--- NOTE | 2016-06-12 18:25 | Consultation ---
History of Present Illness - Reason for Consult Consult date: 06/12/16 (pt was seen and examined. Consult dictated) Past History Past Medical History: diabetes, dialysis, ESRD, hypertension, other (bipolar disorder, schizophrenia) Past Surgical History: Other (foot surgery, AV fistula, permacath placement) Social history: other (lives in a personal fdc). denies: smoking, alcohol abuse, prescription drug abuse, IV drug use Family history: no significant family history Medications and Allergies Allergies Allergy/AdvReac Type Severity Reaction Status Date / Time metformin AdvReac Intermediate Vomiting Verified 01/10/16 02:52 colchicine [From Colcrys] AdvReac Unknown Verified 01/10/16 02:52 quetiapine fumarate AdvReac HYPER Verified 01/10/16 02:52 [From Seroquel] Home Medications Medication Instructions Recorded Confirmed Last Taken Type ARIPiprazole [Abilify TAB] 15 mg PO DAILY 07/21/15 06/07/16 06/07/16 20:00 History Divalproex ER [Depakote ER] 500 mg PO QDAY 07/21/15 06/07/16 06/07/16 20:00 History Levothyroxine [Synthroid] 25 mcg PO QAM 07/21/15 06/07/16 06/08/16 08:30 History Metoprolol [Lopressor TAB] 25 mg PO BID 07/21/15 06/07/16 06/07/16 20:00 History Oxybutynin [Ditropan] 5 mg PO BID 07/21/15 06/07/16 06/08/16 08:30 History Calcium Acetate 667 mg PO TID 11/01/15 06/07/16 06/07/16 20:00 History Docusate Sodium [Colace CAP] 1 tab PO DAILY 11/01/15 06/07/16 06/07/16 20:00 History FLUoxetine HCL [PROzac] 40 mg PO QDAY 11/01/15 06/07/16 06/07/16 20:00 History Esomeprazole Magnesium [NexIUM] 40 mg PO QDAY 11/16/15 06/07/16 06/08/16 08:30 History Mirtazapine 15 mg PO QDAY 11/16/15 06/07/16 06/07/16 20:00 History Dicyclomine [Bentyl] 10 mg PO TID PRN #15 capsule 01/12/16 06/07/16 06/07/16 20: 00 Rx ALBUTEROL Inhaler [ProAir HFA 2 puff IH QID PRN #1 inhalation 02/07/16 06/08/16 05/24/16 Rx Inhaler] hydrALAZINE [Apresoline TAB] 25 mg PO Q12H #60 tablet 05/20/16 06/07/16 08:30 Rx Warfarin [Coumadin] 2.5 mg PO QDAY 06/07/16 06/08/16 06/06/16 History HYDROcodone/APAP 7.5-325 [[place] 1 each PO Q6HR PRN #60 tablet 06/08/16 Unknown Rx 7.5/325] Active Meds: Active Medications Acetaminophen (Tylenol) 650 mg PO Q4H PRN PRN Reason: Pain MILD(1-3)/Fever >100.5/POLK Albuterol (Proventil) 2.5 mg IH Q3HRT PRN PRN Reason: Shortness Of Breath Aripiprazole (Abilify) 15 mg PO DAILY [facility] Last Admin: 06/12/16 10:58 Dose: Not Given Aspirin (Baby Aspirin) 81 mg PO QDAY [facility] Bisacodyl (Dulcolax) 10 mg CA QDAY PRN PRN Reason: Constipation unrelieved by MOM Dicyclomine HCl (Bentyl) 10 mg PO TID PRN PRN Reason: Pain Divalproex Sodium (Depakote Er) 500 mg PO QDAY [facility] Last Admin: 06/12/16 10:58 Dose: Not Given Enoxaparin Sodium (Lovenox) 30 mg SUB-Q QDAY [facility] Last Admin: 06/12/16 10:59 Dose: Not Given Epoetin García (Procrit) 6,200 unit IV [place]LENA PRN PRN Reason: hemodialysis Last Admin: 06/12/16 15:26 Dose: 6,200 unit Fluoxetine HCl (Prozac) 40 mg PO QDAY [facility] Last Admin: 06/12/16 11:11 Dose: Not Given Heparin Sodium (Porcine) (Heparin 10,000 Units/10 Ml) 2,000 unit IV ELENA PRN PRN Reason: hemodialysis Heparin Sodium (Porcine) (Heparin) 5,000 unit IV ELENA PRN PRN Reason: hemodialysis Last Admin: 06/12/16 15:42 Dose: 5,000 unit Hydralazine HCl (Apresoline) 25 mg PO Q12HR [facility] Last Admin: 06/12/16 10:58 Dose: Not Given Sodium Chloride (Nacl 0.9% 1000 Ml) 100 mls @ 999 mls/hr IV ELENA PRN PRN Reason: Hypotension Levofloxacin (Levaquin) 500 mg PO Q24HR [facility] Last Admin: 06/12/16 10:59 Dose: Not Given Levothyroxine Sodium (Synthroid) 25 mcg PO DAILY@0600 [facility] Last Admin: 06/12/16 10:58 Dose: Not Given Magnesium Hydroxide (Milk Of Magnesia) 30 ml PO Q4H PRN PRN Reason: Constipation Metoprolol Tartrate (Lopressor) 25 mg PO BID [facility] Last Admin: 06/12/16 10:59 Dose: Not Given Mirtazapine (Remeron) 15 mg PO QDAY [facility] Last Admin: 06/12/16 11:10 Dose: Not Given Ondansetron HCl (Zofran) 4 mg IV Q8H PRN PRN Reason: N/V unrelieved by Reglan Oxybutynin Chloride (Ditropan) 5 mg PO BID [facility] Last Admin: 06/12/16 10:59 Dose: Not Given Pantoprazole Sodium (Protonix) 40 mg PO DAILY [facility] Last Admin: 06/12/16 11:11 Dose: Not Given Sodium Chloride (Sodium Chloride Flush Syringe 10 Ml) 10 ml IV PRN PRN PRN Reason: LINE FLUSH Stop: 06/22/16 08:33 Exam - Constitutional Vitals: Temp Pulse Resp BP Pulse Ox 97.2 F L 76 20 108/60 96 06/12/16 16:21 06/12/16 16:21 06/12/16 16:21 06/12/16 16:21 06/12/16 16:21 Results - Labs CBC & Chem 7: 06/11/16 19:15 06/11/16 19:15 Labs: Abnormal lab results 06/12/16 Range/Units 10:18 Total Creatine Kinase 22 L (30-135) units/L CK-MB (CK-2) Rel Index 8.1 H (0-4)
[2016-06-12 20:26] LABS: Creatine Kinase MB 1.7 ng/mL (0.0-4.0)
[2016-06-12] MEDS: TYLENOL PO PRN (21:30)
--- NOTE | 2016-06-13 02:00 | Consultation ---
RENAL CONSULTATION REASON FOR CONSULTATION: Renal failure. HISTORY OF PRESENT ILLNESS: This 36-year-old female with end-stage renal disease, diabetes, and hypertension, was brought to the Emergency Room with complaints of generalized weakness and shortness of breath and chest pain. The patient states that she lives in a personal fci. She recently moved from [facility] at [facility]. She has been on hemodialysis for about a year. The patient states that she had an uneventful dialysis on Saturday. Yesterday, she felt like passing out on standing and walking and was having tingling and shortness of breath. Admission labs showed a BUN of 40, creatinine of 5.9, potassium of 4.5, hemoglobin of 8.5, and hematocrit 27.2. CT scan of the head showed no evidence of acute intracranial process. The patient was admitted for fluid overload, leukocytosis and evaluation of chest pain. Cardiology consult noted. The patient had recent echocardiogram done in 02/2016, which showed a left ventricular ejection fraction of 60% to 65% and again in 11/2015, she had a Lexiscan thallium test, which was negative for ischemia. The patient has been having dialysis access problems. She has nonfunctioning right arm graft. She is currently dialyzed with right femoral catheter. This past Saturday, the patient had a new left thigh AV graft by Dr. Costello. The patient goes to [facility] on Saturday, , and Saturday. PAST MEDICAL HISTORY: Type 2 diabetes, hypertension, end-stage renal disease, history of bipolar disorder, and schizophrenia. She had foot surgery. PERSONAL HISTORY: She lives in a personal fci. No family. Denies smoking, alcohol, or drug abuse. ALLERGIES: METFORMIN, COLCHICINE, AND QUETIAPINE. HOME MEDICATIONS: Abilify 15 mg once a day, Depakote 500 mg once a day, levothyroxine 25 mcg once a day, metoprolol 25 mg twice a day, oxybutynin 5 mg b.i.d., calcium acetate with each meal, fluoxetine 40 mg once a day, Nexium 40 mg a day, mirtazapine 15 mg a day, and warfarin 2.5 mg once a day. REVIEW OF SYSTEMS: The patient denies fever or chills. Denies cold, cough or sore throat. Denies difficulty swallowing. Her main complaint is feels like passing out on standing and walking and tingling. Shortness of breath on exertion. Denies chest pain at present time. Denies abdomen pain, nausea, or vomiting. No diarrhea, no GI bleeding. Denies dysuria or hematuria. Denies swelling of the legs. Other review of systems reviewed and negative. PHYSICAL EXAMINATION: GENERAL: The patient is alert, oriented, well-developed female. VITAL SIGNS: Blood pressure 108/60, pulse 76, afebrile. HEENT: Head is normocephalic. Eyes: Pupils reactive. Conjunctivae are pale. Oral mucosa and tongue are dry. Lips, noncyanotic. NECK: No JVD. No thyroid enlargement. LUNGS: Diminished breath sounds in bases. HEART: S1, S2 regular. No pericardial rub. A 2/6 systolic murmur along the left sternal border. ABDOMEN: Soft, bowel sounds present, nontender. No masses palpable. EXTREMITIES: No significant edema. The patient has right femoral catheter in place. Left thigh AV graft has bruit and thrill, able to move all extremities. LABORATORY DATA: WBC 17.6, hemoglobin 8.5, hematocrit 27.2, and platelets 184. INR 1.31. Sodium 136, potassium 4.5, chloride 92, CO2 of 20, BUN 40, creatinine 5.9, glucose 144, calcium 8.7, albumin 4.4. Valproic acid level is 6.4. ASSESSMENT AND PLAN: 1. Atypical chest pain. 2. End-stage renal disease. 3. Hypertension. 4. Type 2 diabetes. 5. Postural dizziness and near syncopal episodes. 6. History of bipolar/schizophrenia. Hemodialysis with ultrafiltration as tolerated. The patient is noted to have leukocytosis. Check blood and urine cultures. The patient has anemia. The patient received Epogen per protocol. Check orthostatic blood pressures and pulse. Renal diet as ordered. Adjust medications per renal function. JOB# [id number] UMK/NTS
[2016-06-13 06:43] LABS: Hematocrit 22.7 % (30.3-42.9); Hemoglobin 7.3 gm/dl (10.1-14.3); Mean Corpuscular HGB Conc 32 % (30-34); Mean Corpuscular Hemoglobin 41 pg (28-32); Platelet Count 116 K/mm3 (140-440); Red Blood Count 1.76 M/mm3 (3.65-5.03); Red Cell Distribution Width 18.6 % (13.2-15.2); White Blood Count 13.2 K/mm3 (4.5-11.0)
[2016-06-13 06:51] LABS: Mean Corpuscular Volume 130 fl (79-97)
[2016-06-13 06:59] LABS: BUN/Creatinine Ratio 5.23; Calcium 8.7 mg/dL (8.4-10.2)
[2016-06-13 08:58] LABS: Anisocytosis 2+; Basophils % (Manual) 0 % (0.0-1.8); Blastocytes % (Manual) 0 %; Eosinophils % (Manual) 0 % (0.0-4.3); Macrocytosis 3+
[2016-06-13 08:59] LABS: Diff Status Complete; Platelet Estimate Appears Decreased; Poikilocytosis 1+; Polychromasia 1+; Stomatocytes 2+; Tear Drop Cells 1+
--- NOTE | 2016-06-13 09:38 | Progress Note ---
Assessment and Plan - Patient Problems (1) Rectal bleeding Current Visit: Yes Status: Acute (2) ESRD (end stage renal disease) on dialysis Current Visit: Yes Status: Chronic Plan to address problem: HD on T/T/S . Rectal bleeding. No Heparin for dialysis Orthiostatic dizziness. Noted drop in Hb- consider G.I evaluation and PRBC. Spoke with hospitalist (3) Diabetes Current Visit: No Status: Chronic Qualifiers: Diabetes mellitus type: type 2 Diabetes mellitus complication status: with kidney complications Chronic kidney disease stage: on chronic dialysis Qualified Code(s): E10.22 - Type 1 diabetes mellitus with diabetic chronic kidney disease (4) Hypothyroidism Current Visit: No Status: Chronic Qualifiers: Hypothyroidism type: acquired Qualified Code(s): E03.9 - Hypothyroidism, unspecified (5) Seizure disorder Current Visit: No Status: Chronic Subjective Date of service: 06/13/16 Interval history: pt is alert, oriented, C/O postural dizziness,SOB on ambulating or standing. C/ O blood in the stool .C/O pain in back of my neck and upper chest Objective - Vital Signs Vital signs: Vital Signs - 12hr 06/12/16 06/12/16 06/13/16 21:39 23:56 00:05 Temperature Pulse Rate 130 H 80 Pulse Rate [ 130 H From Monitor] Pulse Rate [ Left Radial] Respiratory 20 Rate Blood Pressure [Left Arm] Blood Pressure [Right Arm] O2 Sat by Pulse Oximetry 06/13/16 06/13/16 06/13/16 01:18 05:56 08:45 Temperature 98.6 F 98.2 F 97.8 F Pulse Rate Pulse Rate [ 94 H 101 H From Monitor] Pulse Rate [ 90 Left Radial] Respiratory 18 20 20 Rate Blood Pressure 101/55 [Left Arm] Blood Pressure 103/51 91/48 [Right Arm] O2 Sat by Pulse 99 96 96 Oximetry 06/13/16 09:30 Temperature Pulse Rate Pulse Rate [ From Monitor] Pulse Rate [ Left Radial] Respiratory Rate Blood Pressure [Left Arm] Blood Pressure [Right Arm] O2 Sat by Pulse 94 Oximetry - General Appearance General appearance: well-developed EENT: mucous membranes moist Neck: no JVD Respiratory: Present: Clear to Ascultation Cardiology: regular, systolic murmur Gastrointestinal: normoactive bowel sounds Neurologic: alert and oriented x3 Musculoskeletal: other (1+edema, left thigh AVG has bruit and thrill) Psychiatric: cooperative - Lab 06/13/16 06:07 06/13/16 06:07 Most recent lab results Calcium 8.7 mg/dL (8.4-10.2) 06/13/16 06:07
--- NOTE | 2016-06-13 11:02 | Query- Chest Pain ---
Deborah Figueroa Date:06/13/16 Surplus Property Disposal Agent/CDS:[place] Phone#: Exercise your independent professional judgment when responding to query. Questions asked do not imply a particular answer is desired or expected. We greatly appreciate your clarification on this issue. Clinical Documentation States: 36 y/o f admitted 06/12/16 for CP," -Atypical chest pain -Troponin negative -No acute EKG changes -Stress 11/16- No ischemia -Echo 02/16- EF 60-65% Given the atypical chest pain, negative troponin and recent negative stress test recommend medical management." (Dr. Kay and OPERATIONS CHIEF Marnie Babb, 06/12/16, consult note) Clinical Findings Show: [ x] EKG:No acute EKG changes [x] ECHO: EF 60-65% [x ] Troponin:_Negative Please document the etiology of Chest Pain: [ ] Myocardial Infarction [ ] Pneumonia [ ] Mediastinitis [ ] Costochondritis [ ] Pulmonary Embolism [ ] Coronary Artery Disease [ ] GERD [ ] Other: [ ] Comment/Explanation: Present on Admission: [ ] Yes (Y) [ ] Clinically undeterminable (W) [ ] No(N) Please document response in your Progress Notes and/or Discharge Summary and indicate if the condition was present on admission. GEORGES
[2016-06-13] MEDS: BABY ASPIRIN PO SCH (11:07)
[2016-06-13] MEDS: ABILIFY PO SCH (11:07)
[2016-06-13] MEDS: DITROPAN PO SCH ×2 (11:08→21:27)
[2016-06-13] MEDS: LOPRESSOR PO SCH ×2 (11:08→21:27)
[2016-06-13] MEDS: LEVAQUIN PO SCH (11:08)
[2016-06-13] MEDS: PROTONIX PO SCH (11:09)
[2016-06-13] MEDS: PROzac PO SCH (11:09)
[2016-06-13] MEDS: REMERON PO SCH (11:09)
[2016-06-13] MEDS: LOVENOX SUB-Q SCH (11:09)
--- NOTE | 2016-06-13 11:26 | Progress Note ---
Assessment and Plan Atypical chest pain troponin negative no acute EKG changes stress MPI 11/2015: no ischemia Echo 02/2016: EF 60-65% Dizziness/hypotension obtain orthostatics d/c hydralazine (intermittent tachycardia noted) ESRD on HD Hypertension Diabetes Bipolar/schizophrenia Anemia Will d/c hydralazine and obtain orthostatics. The patient has been seen in conjunction with Dr. Kay who agrees with the assessment and plan of care. Subjective Date of service: 06/13/16 Principal diagnosis: atypical chest pain Interval history: The patient complains of dizziness and lightheadedness when ambulating to the restroom this morning. She also reports blood in her stool this morning. Sinus rhythm on the monitor. Objective Last Vital Signs Temp 97.8 F 06/13/16 08:45 Pulse 90 06/13/16 08:45 Resp 20 06/13/16 08:45 BP 97/54 06/13/16 11:08 Pulse Ox 94 06/13/16 09:30 - Physical Examination General: No Apparent Distress HEENT: Positive: Normocephaly, Mucus Membranes Moist Neck: Positive: neck supple, trachea midline Cardiac: Positive: Reg Rate and Rhythm, S1/S2 Lungs: Positive: clear to auscultation Neuro: Positive: Grossly Intact Abdomen: Positive: Soft, Active Bowel Sounds. Negative: Tender Skin: Positive: Clear. Negative: Rash Musculoskeletal: Normal Range of Motion Extremities: Present: normal. Absent: edema - Labs and Meds Cardiac Enzymes 06/12/16 Range/Units 19:33 CK-MB (CK-2) 1.7 (0.0-4.0) ng/mL CBC 06/13/16 Range/Units 06:07 WBC 13.2 H (4.5-11.0) K/mm3 RBC 1.76 L (3.65-5.03) M/mm3 Hgb 7.3 L (10.1-14.3) gm/dl Hct 22.7 L (30.3-42.9) % Plt Count 116 L (140-440) K/mm3 Comprehensive Metabolic Panel 06/13/16 Range/Units 06:07 Sodium 140 (137-145) mmol/L Potassium 5.0 (3.6-5.0) mmol/L Chloride 96.0 L (98-107) mmol/L Carbon Dioxide 27 D (22-30) mmol/L BUN 22 H (7-17) mg/dL Creatinine 4.2 H (0.7-1.2) mg/dL Glucose 104 H (65-100) mg/dL Calcium 8.7 (8.4-10.2) mg/dL - Imaging and Cardiology EKG: image reviewed Echo: report reviewed (02/2016: EF 60-65%) - Telemetry EKG Rhythm: Sinus Rhythm - EKG Sinus rhythms and dysrhythmias: sinus rhythm Chamber hypertrophy or enlargement: left ventricular hypertro
[2016-06-13] MEDS ORDERED: PERCOCET 5/325 PO PRN (17:30)
--- NOTE | 2016-06-13 18:20 | Consultation ---
History of Present Illness - Reason for Consult Consult date: 06/13/16 Rectal bleed - History of Present Illness See dictation Past History Past Medical History: diabetes, dialysis, ESRD, hypertension, other (bipolar disorder, schizophrenia) Past Surgical History: Other (foot surgery, AV fistula, permacath placement) Social history: other (lives in a personal custodial). denies: smoking, alcohol abuse, prescription drug abuse, IV drug use Family history: no significant family history Medications and Allergies Allergies Allergy/AdvReac Type Severity Reaction Status Date / Time metformin AdvReac Intermediate Vomiting Verified 01/10/16 02:52 colchicine [From Colcrys] AdvReac Unknown Verified 01/10/16 02:52 quetiapine fumarate AdvReac HYPER Verified 01/10/16 02:52 [From Seroquel] Home Medications Medication Instructions Recorded Confirmed Last Taken Type ARIPiprazole [Abilify TAB] 15 mg PO DAILY 07/21/15 06/07/16 06/07/16 20:00 History Divalproex ER [Depakote ER] 500 mg PO QDAY 07/21/15 06/07/16 06/07/16 20:00 History Levothyroxine [Synthroid] 25 mcg PO QAM 07/21/15 06/07/16 06/08/16 08:30 History Metoprolol [Lopressor TAB] 25 mg PO BID 07/21/15 06/07/16 06/07/16 20:00 History Oxybutynin [Ditropan] 5 mg PO BID 07/21/15 06/07/16 06/08/16 08:30 History Calcium Acetate 667 mg PO TID 11/01/15 06/07/16 06/07/16 20:00 History Docusate Sodium [Colace CAP] 1 tab PO DAILY 11/01/15 06/07/16 06/07/16 20:00 History FLUoxetine HCL [PROzac] 40 mg PO QDAY 11/01/15 06/07/16 06/07/16 20:00 History Esomeprazole Magnesium [NexIUM] 40 mg PO QDAY 11/16/15 06/07/16 06/08/16 08:30 History Mirtazapine 15 mg PO QDAY 11/16/15 06/07/16 06/07/16 20:00 History Dicyclomine [Bentyl] 10 mg PO TID PRN #15 capsule 01/12/16 06/07/16 06/07/16 20: 00 Rx ALBUTEROL Inhaler [ProAir HFA 2 puff IH QID PRN #1 inhalation 02/07/16 06/08/16 05/24/16 Rx Inhaler] hydrALAZINE [Apresoline TAB] 25 mg PO Q12H #60 tablet 05/20/16 06/07/16 08:30 Rx Warfarin [Coumadin] 2.5 mg PO QDAY 06/07/16 06/08/16 06/06/16 History HYDROcodone/APAP 7.5-325 [Cohutta 1 each PO Q6HR PRN #60 tablet 06/08/16 Unknown Rx 7.5/325] Active Meds: Active Medications Acetaminophen (Tylenol) 650 mg PO Q4H PRN PRN Reason: Pain MILD(1-3)/Fever >100.5/POLK Last Admin: 06/12/16 21:30 Dose: 650 mg Albuterol (Proventil) 2.5 mg IH Q3HRT PRN PRN Reason: Shortness Of Breath Aripiprazole (Abilify) 15 mg PO DAILY [facility] Last Admin: 06/13/16 11:07 Dose: 15 mg Aspirin (Baby Aspirin) 81 mg PO QDAY [facility] Last Admin: 06/13/16 11:07 Dose: 81 mg Bisacodyl (Dulcolax) 10 mg MS QDAY PRN PRN Reason: Constipation unrelieved by MOM Dicyclomine HCl (Bentyl) 10 mg PO TID PRN PRN Reason: Pain Divalproex Sodium (Depakote Er) 500 mg PO QDAY [facility] Last Admin: 06/13/16 11:08 Dose: 500 mg Enoxaparin Sodium (Lovenox) 30 mg SUB-Q QDAY [facility] Last Admin: 06/13/16 11:09 Dose: Not Given Epoetin García (Procrit) 6,200 unit IV ELENA PRN PRN Reason: hemodialysis Last Admin: 06/12/16 15:26 Dose: 6,200 unit Fluoxetine HCl (Prozac) 40 mg PO QDAY [facility] Last Admin: 06/13/16 11:09 Dose: 40 mg Heparin Sodium (Porcine) (Heparin 10,000 Units/10 Ml) 2,000 unit IV ELENA PRN PRN Reason: hemodialysis Heparin Sodium (Porcine) (Heparin) 5,000 unit IV ELENA PRN PRN Reason: hemodialysis Last Admin: 06/12/16 15:42 Dose: 5,000 unit Sodium Chloride (Nacl 0.9% 1000 Ml) 100 mls @ 999 mls/hr IV ELENA PRN PRN Reason: Hypotension Levofloxacin (Levaquin) 500 mg PO Q24HR [facility] Last Admin: 06/13/16 11:08 Dose: 500 mg Levofloxacin (Levaquin) 250 mg PO Q48H [facility] Levothyroxine Sodium (Synthroid) 25 mcg PO DAILY@0600 [facility] Last Admin: 06/12/16 10:58 Dose: Not Given Magnesium Hydroxide (Milk Of Magnesia) 30 ml PO Q4H PRN PRN Reason: Constipation Metoprolol Tartrate (Lopressor) 25 mg PO BID [facility] Last Admin: 06/13/16 11:08 Dose: Not Given Mirtazapine (Remeron) 15 mg PO QDAY [facility] Last Admin: 06/13/16 11:09 Dose: 15 mg Ondansetron HCl (Zofran) 4 mg IV Q8H PRN PRN Reason: N/V unrelieved by Reglan Oxybutynin Chloride (Ditropan) 5 mg PO BID [facility] Last Admin: 06/13/16 11:08 Dose: 5 mg Oxycodone/Acetaminophen (Percocet 5/325) 1 tab PO Q6H PRN PRN Reason: Pain, Moderate (4-6) Pantoprazole Sodium (Protonix) 40 mg PO DAILY [facility] Last Admin: 06/13/16 11:09 Dose: 40 mg Sodium Chloride (Sodium Chloride Flush Syringe 10 Ml) 10 ml IV PRN PRN PRN Reason: LINE FLUSH Stop: 06/22/16 08:33 Exam - Constitutional Vitals: Temp Pulse Resp BP Pulse Ox 97.7 F 106 H 20 107/54 100 06/13/16 12:10 06/13/16 12:10 06/13/16 12:10 06/13/16 12:10 06/13/16 12:10 Results - Labs CBC & Chem 7: 06/13/16 06:07 06/13/16 06:07 Labs: Abnormal lab results 06/12/16 06/12/16 06/12/16 Range/Units 07:35 11:47 19:33 WBC (4.5-11.0) K/mm3 RBC (3.65-5.03) M/mm3 Hgb (10.1-14.3) gm/dl Hct (30.3-42.9) % MCV (79-97) fl MCH (28-32) pg RDW (13.2-15.2) % Plt Count (140-440) K/mm3 Seg Neuts % (Manual) (40.0-70.0) % Lymphocytes % (Manual) (13.4-35.0) % Nucleated RBC % (0.0-0.9) % Seg Neutrophils # Man (1.8-7.7) K/mm3 Chloride (98-107) mmol/L BUN (7-17) mg/dL Creatinine (0.7-1.2) mg/dL Glucose (65-100) mg/dL POC Glucose 139 H 172 H (70-105) Total Creatine Kinase 23 L (30-135) units/L CK-MB (CK-2) Rel Index 7.3 H (0-4) 06/12/16 06/13/16 06/13/16 Range/Units 22:19 06:07 06:07 WBC 13.2 H (4.5-11.0) K/mm3 RBC 1.76 L (3.65-5.03) M/mm3 Hgb 7.3 L (10.1-14.3) gm/dl Hct 22.7 L (30.3-42.9) % MCV 130 H (79-97) fl MCH 41 H (28-32) pg RDW 18.6 H (13.2-15.2) % Plt Count 116 L (140-440) K/mm3 Seg Neuts % (Manual) 75.0 H (40.0-70.0) % Lymphocytes % (Manual) 13.0 L (13.4-35.0) % Nucleated RBC % 1.0 H (0.0-0.9) % Seg Neutrophils # Man 9.9 H (1.8-7.7) K/mm3 Chloride 96.0 L (98-107) mmol/L BUN 22 H (7-17) mg/dL Creatinine 4.2 H (0.7-1.2) mg/dL Glucose 104 H (65-100) mg/dL POC Glucose 154 H (70-105) Total Creatine Kinase (30-135) units/L CK-MB (CK-2) Rel Index (0-4) Assessment and Plan Pt with developmental delay most likely, on HD for ESRD, admitted with CP. Pt was observed to have rectal bleed. She has chronic anemia. H/H is c/w baseline. Rectal - normal exam, scyballous brown stool with no blood. Imp - possible menstrual blood given dark stain on underwear. No GI bleed. Will sign off. Thanks.
--- NOTE | 2016-06-13 19:23 | Progress Note ---
Assessment and Plan Assessment and plan: --Rectal bleeding Hemodynamically stable, closely monitor H&H and transfuse as needed GI consultation --End-stage renal disease on hemodialysis Nephrology following, dialysis per schedule --History of bipolar disorder/schizophrenia Stable on medications closely monitor --Type2 DM Accu-Chek sliding scale coverage and ADA diet and insulin as needed --Hypertension moderate control No current antihypertensives and when necessary medications --History of hypothyroidism stable on Synthroid --Dyslipidemia stable on lipid-lowering medications --DVT prophylaxis Follow GI evaluation and recommendations DC planning per case management discharged to assisted living once medically stable History Interval history: Recent seen and evaluated medical records reviewed Patient complains of some rectal bleeding and also complaints of dizziness Alert awake oriented 3 not in acute distress Vital signs reviewed Hospitalist Physical - Constitutional Vitals: Temp Pulse Resp BP Pulse Ox 97.7 F 106 H 20 107/54 100 06/13/16 12:10 06/13/16 12:10 06/13/16 18:25 06/13/16 12:10 06/13/16 12:10 General appearance: Present: no acute distress, well-nourished - EENT Eyes: Present: PERRL, EOM intact - Neck Neck: Present: supple, normal ROM - Respiratory Respiratory effort: normal Respiratory: bilateral: diminished, rales, negative: rhonchi, wheezing - Cardiovascular Rhythm: regular Heart Sounds: Present: S1 & S2 - Extremities Extremities: no ischemia, pulses intact, pulses symmetrical Peripheral Pulses: within normal limits - Abdominal General gastrointestinal: soft, non-tender, non-distended, normal bowel sounds - Integumentary Integumentary: Present: clear, warm - Psychiatric Psychiatric: appropriate mood/affect, cooperative - Neurologic Neurologic: CNII-XII intact, moves all extremities Results - Labs CBC & Chem 7: 06/13/16 06:07 06/13/16 06:07 Labs: Laboratory Last Values WBC 13.2 K/mm3 (4.5-11.0) H 06/13/16 06:07 RBC 1.76 M/mm3 (3.65-5.03) L 06/13/16 06:07 Hgb 7.3 gm/dl (10.1-14.3) L 06/13/16 06:07 Hct 22.7 % (30.3-42.9) L 06/13/16 06:07 MCV 130 fl (79-97) H 06/13/16 06:07 MCH 41 pg (28-32) H 06/13/16 06:07 MCHC 32 % (30-34) 06/13/16 06:07 RDW 18.6 % (13.2-15.2) H 06/13/16 06:07 Plt Count 116 K/mm3 (140-440) L 06/13/16 06:07 Lymph % (Auto) TNR 06/11/16 18:04 Banner % (Auto) TNR 06/11/16 18:04 Eos % (Auto) TNR 06/11/16 18:04 Baso % (Auto) TNR 06/11/16 18:04 Lymph # TNR 06/11/16 18:04 Banner # TNR 06/11/16 18:04 Eos # TNR 06/11/16 18:04 Baso # TNR 06/11/16 18:04 Add Manual Diff Complete 06/13/16 06:07 Total Counted 100 06/13/16 06:07 Seg Neutrophils % TNR 06/11/16 18:04 Seg Neuts % (Manual) 75.0 % (40.0-70.0) H 06/13/16 06:07 Band Neutrophils % 0 % 06/13/16 06:07 Lymphocytes % (Manual) 13.0 % (13.4-35.0) L 06/13/16 06:07 Reactive Lymphs % (Man) 0 % 06/13/16 06:07 Monocytes % (Manual) 3.0 % (0.0-7.3) 06/13/16 06:07 Eosinophils % (Manual) 0 % (0.0-4.3) 06/13/16 06:07 Basophils % (Manual) 0 % (0.0-1.8) 06/13/16 06:07 Metamyelocytes % 7.0 % 06/13/16 06:07 Myelocytes % 2.0 % 06/13/16 06:07 Promyelocytes % 0 % 06/13/16 06:07 Blast Cells % 0 % 06/13/16 06:07 Nucleated RBC % 1.0 % (0.0-0.9) H 06/13/16 06:07 Seg Neutrophils # TNR 06/11/16 18:04 Seg Neutrophils # Man 9.9 K/mm3 (1.8-7.7) H 06/13/16 06:07 Band Neutrophils # 0.0 K/mm3 06/13/16 06:07 Lymphocytes # (Manual) 1.7 K/mm3 (1.2-5.4) 06/13/16 06:07 Abs React Lymphs (Man) 0.0 K/mm3 06/13/16 06:07 Monocytes # (Manual) 0.4 K/mm3 (0.0-0.8) 06/13/16 06:07 Eosinophils # (Manual) 0.0 K/mm3 (0.0-0.4) 06/13/16 06:07 Basophils # (Manual) 0.0 K/mm3 (0.0-0.1) 06/13/16 06:07 Metamyelocytes # 0.9 K/mm3 06/13/16 06:07 Myelocytes # 0.3 K/mm3 06/13/16 06:07 Promyelocytes # 0.0 K/mm3 06/13/16 06:07 Blast Cells # 0.0 K/mm3 06/13/16 06:07 WBC Morphology Not Reportable 06/13/16 06:07 Hypersegmented Neuts Not Reportable 06/13/16 06:07 Hyposegmented Neuts Not Reportable 06/13/16 06:07 Hypogranular Neuts Not Reportable 06/13/16 06:07 Hypersegmented Polys Cancelled 06/11/16 18:04 Smudge Cells Not Reportable 06/13/16 06:07 Toxic Granulation Not Reportable 06/13/16 06:07 Toxic Vacuolation Not Reportable 06/13/16 06:07 Dohle Bodies Not Reportable 06/13/16 06:07 Pelger-Huet Anomaly Not Reportable 06/13/16 06:07 Le Rods Not Reportable 06/13/16 06:07 Platelet Estimate Appears decreased 06/13/16 06:07 Clumped Platelets Not Reportable 06/13/16 06:07 Plt Clumps, EDTA Not Reportable 06/13/16 06:07 Large Platelets Not Reportable 06/13/16 06:07 Giant Platelets Not Reportable 06/13/16 06:07 Platelet Satelliting Not Reportable 06/13/16 06:07 Plt Morphology Comment Not Reportable 06/13/16 06:07 RBC Morphology Not Reportable 06/13/16 06:07 Dimorphic RBCs Not Reportable 06/13/16 06:07 Polychromasia 1+ 06/13/16 06:07 Hypochromasia Not Reportable 06/13/16 06:07 Poikilocytosis 1+ 06/13/16 06:07 Basophilic Stippling Cancelled 06/11/16 18:04 Anisocytosis 2+ 06/13/16 06:07 Microcytosis Not Reportable 06/13/16 06:07 Macrocytosis 3+ 06/13/16 06:07 Spherocytes Not Reportable 06/13/16 06:07 Pappenheimer Bodies Not Reportable 06/13/16 06:07 Sickle Cells Not Reportable 06/13/16 06:07 Target Cells Not Reportable 06/13/16 06:07 Tear Drop Cells 1+ 06/13/16 06:07 Ovalocytes Not Reportable 06/13/16 06:07 Stomatocytes 2+ 06/13/16 06:07 Helmet Cells Not Reportable 06/13/16 06:[address] [place] Bodies Not Reportable 06/13/16 06:07 [place] Rings Not Reportable 06/13/16 06:07 Woody Cells Not Reportable 06/13/16 06:07 Bite Cells Not Reportable 06/13/16 06:07 Crenated Cell Not Reportable 06/13/16 06:07 Elliptocytes Not Reportable 06/13/16 06:07 Acanthocytes (Spur) Not Reportable 06/13/16 06:07 Rouleaux Not Reportable 06/13/16 06:07 Hemoglobin C Crystals Not Reportable 06/13/16 06:07 Schistocytes Not Reportable 06/13/16 06:07 Malaria parasites Not Reportable 06/13/16 06:07 Abdiel Bodies Not Reportable 06/13/16 06:07 Hem Pathologist Commnt No 06/13/16 06:07 PT 16.2 Sec. (12.2-14.9) H 06/11/16 18:04 INR 1.31 (0.87-1.13) H 06/11/16 18:04 APTT 41.2 Sec. (24.2-36.6) H 06/11/16 18:04 Sodium 140 mmol/L (137-145) 06/13/16 06:07 Potassium 5.0 mmol/L (3.6-5.0) 06/13/16 06:07 Chloride 96.0 mmol/L (98-107) L 06/13/16 06:07 Carbon Dioxide 27 mmol/L (22-30) D 06/13/16 06:07 Anion Gap 22 mmol/L 06/13/16 06:07 BUN 22 mg/dL (7-17) H 06/13/16 06:07 Creatinine 4.2 mg/dL (0.7-1.2) H 06/13/16 06:07 Estimated GFR 12 ml/min 06/13/16 06:07 BUN/Creatinine Ratio 5.23 % 06/13/16 06:07 Glucose 104 mg/dL (65-100) H 06/13/16 06:07 POC Glucose 154 (70-105) H 06/12/16 22:19 Calcium 8.7 mg/dL (8.4-10.2) 06/13/16 06:07 Total Bilirubin 0.4 mg/dL (0.1-1.2) 06/11/16 19:15 AST 25 units/L (5-40) 06/11/16 19:15 ALT < 5 units/L (7-56) L 06/11/16 19:15 Alkaline Phosphatase 64 units/L (35-129) 06/11/16 19:15 Total Creatine Kinase 23 units/L (30-135) L 06/12/16 19:33 CK-MB (CK-2) 1.7 ng/mL (0.0-4.0) 06/12/16 19:33 CK-MB (CK-2) Rel Index 7.3 (0-4) H 06/12/16 19:33 Troponin T < 0.010 ng/mL (0.00-0.029) 06/12/16 19:33 Total Protein 7.4 g/dL (6.3-8.2) 06/11/16 19:15 Albumin 4.4 g/dL (3.9-5) 06/11/16 19:15 Albumin/Globulin Ratio 1.5 % 06/11/16 19:15 Valproic Acid 6.4 ug/mL (50-100) L 06/12/16 00:45
[2016-06-13] MEDS: TYLENOL PO PRN (21:27)
--- NOTE | 2016-06-14 06:01 | Consultation ---
REASON FOR CONSULTATION: Rectal bleed. HISTORY OF PRESENT ILLNESS: The patient is a 36-year-old woman, who has multiple medical problems including end-stage renal disease on hemodialysis for 1 year. She has had multiple problems with access and just underwent creation of a left artery to vein femoral graft on 06/08. She came to the Emergency Room after being at dialysis due to complaints of chest pain and paresthesias. While here, today, the patient noted complaint of bright red blood per rectum. Nursing notes note that a small stool with bright red blood was noted in the commode. GI consultation is obtained. The patient states that she usually has a bowel movement once or twice a week, but she had three of them so far today. They have been formed. She has some lower abdominal discomfort. She denies nausea or vomiting. There has been no hematochezia or melena. She denies prior GI bleeding. There has been no weight loss. The patient states she has irregular menses and does not know if she has started her cycle yet or not. ALLERGIES: SHE HAS AN ALLERGY TO METFORMIN, COLCHICINE, AND CETAPIN. MEDICATIONS: At home, she is on a variety of medications including possibly warfarin and Nexium. PAST MEDICAL HISTORY: She has a history of: 1. End-stage renal disease-on hemodialysis x 1 year. 2. Diabetes. 3. Hypertension. 4. Schizophrenia. 5. Bipolar disorder. 6. History of left foot surgery. 7. Multiple access issues for dialysis with surgeries. FAMILY HISTORY: Noncontributory. SOCIAL HISTORY: She lives in a personal care facility and there is no history of tobacco or ethanol usage. REVIEW OF SYSTEMS: Positive for paresthesias, for chest pain. There is no shortness of breath. PHYSICAL EXAMINATION: GENERAL: This is an obese, short white female, who is young and in no apparent distress. VITAL SIGNS: She has a temperature of 97.7, pulse 106, blood pressure 107/54. HEENT: She is anicteric. Pupils are round and reactive. Oropharynx is clear with poor dentition. LUNGS: Clear to auscultation. CARDIAC: Tachycardic with no extra heart sounds. ABDOMEN: Soft with good bowel sounds. There is mild tenderness diffusely to deep palpation. RECTAL: Reveals no external lesions and no masses. There is a scybalous light brown stool noted with no evidence of blood whatsoever. Of note, her underwear did have some dark staining that could have been blood anteriorly. EXTREMITIES: Reveal a patent fistula in her left thigh and a dialysis access catheter in her right thigh. LABORATORY DATA: Her white count is 13.2, hemoglobin is 7.3, hematocrit 22.7, platelet count of 116,000. Sodium 140, potassium 5.0, chloride 96, bicarb 27, BUN 22, creatinine 4.2, glucose 104. AST is 25, ALT is less than 5, alk phos 64, total bilirubin of 0.4, albumin of 4.4. IMPRESSION: 1. Rectal bleed - There is no evidence of rectal bleeding today. The blood that was seen may well have represented some degree of menstrual bleeding, but that area was not examined by me. However, at this point clearly, there is no evidence of rectal bleeding and the patient states that she saw bright red blood today; therefore eliminating the rectum as a potential source in my opinion. There is no indication for endoscopic evaluation. 2. Anemia - This is multifactorial. The patient has end-stage renal disease, which would certainly contribute to this and she has recently undergone vascular procedure. Since this is well within her range of normal, I would monitor and transfuse as needed. We will sign off as there is no further GI recommendation. Should you have any questions, please do not hesitate to contact me. JOB# [id number] HRC/NTS
--- NOTE | 2016-06-14 09:22 | Progress Note ---
Assessment and Plan - Patient Problems (1) Rectal bleeding Current Visit: Yes Status: Acute (2) ESRD (end stage renal disease) on dialysis Current Visit: Yes Status: Chronic (3) Diabetes Current Visit: No Status: Chronic Qualifiers: Diabetes mellitus type: type 2 Diabetes mellitus complication status: with kidney complications Chronic kidney disease stage: on chronic dialysis Qualified Code(s): E10.22 - Type 1 diabetes mellitus with diabetic chronic kidney disease (4) Hypothyroidism Current Visit: No Status: Chronic Qualifiers: Hypothyroidism type: acquired Qualified Code(s): E03.9 - Hypothyroidism, unspecified (5) Seizure disorder Current Visit: No Status: Chronic Subjective Date of service: 06/14/16 Principal diagnosis: atypical chest pain Objective - Vital Signs Vital signs: Vital Signs - 12hr 06/13/16 06/14/16 06/14/16 21:24 00:35 00:48 Temperature 98.3 F Pulse Rate 75 Pulse Rate [ From Monitor] Pulse Rate [ 93 H Left Radial] Respiratory 18 Rate Blood Pressure 114/62 [Left Arm] O2 Sat by Pulse 95 98 Oximetry 06/14/16 06/14/16 06/14/16 04:00 07:52 08:53 Temperature 98.5 F 98.6 F Pulse Rate Pulse Rate [ 84 From Monitor] Pulse Rate [ 82 Left Radial] Respiratory 18 18 Rate Blood Pressure 104/60 109/58 [Left Arm] O2 Sat by Pulse 99 95 96 Oximetry - Lab 06/13/16 06:07 06/13/16 06:07 Most recent lab results Calcium 8.7 mg/dL (8.4-10.2) 06/13/16 06:07
[2016-06-14] MEDS: DITROPAN PO SCH (09:24)
[2016-06-14] MEDS: PROzac PO SCH (09:24)
[2016-06-14] MEDS: LOPRESSOR PO SCH (09:25)
[2016-06-14] MEDS: SYNTHROID PO SCH (09:25)
[2016-06-14] MEDS: REMERON PO SCH (09:26)
[2016-06-14] MEDS: BABY ASPIRIN PO SCH (09:27)
[2016-06-14] MEDS: LOVENOX SUB-Q SCH (09:27)
[2016-06-14 09:29] LABS: Hemoglobin 7.6 gm/dl (10.1-14.3)
[2016-06-14] MEDS: ABILIFY PO SCH (09:31)
[2016-06-14] MEDS: PROTONIX PO SCH (09:31)
[2016-06-14] MEDS ORDERED: LOPRESSOR PO SCH (11:08)
--- NOTE | 2016-06-14 11:09 | Progress Note ---
Assessment and Plan Atypical chest pain troponin negative no acute EKG changes stress MPI 11/2015: no ischemia Echo 02/2016: EF 60-65% Dizziness/hypotension orthostatics negative hydralazine discontinued 06/13 will decrease metoprolol to 12.5 mg BID add meclizine 12.5 mg daily ESRD on HD Hypertension Diabetes Bipolar/schizophrenia Anemia Will decrease metoprolol and add meclizine. Continue monitoring of HR and BP. The patient has been seen in conjunction with Dr. Kay who agrees with the assessment and plan of care. Subjective Date of service: 06/14/16 Principal diagnosis: atypical chest pain Interval history: The patient is resting in bed. She continues to c/o dizziness and ringing in her ears. Sinus rhythm on the monitor. Objective Last Vital Signs Temp 98.6 F 06/14/16 07:52 Pulse 82 06/14/16 07:52 Resp 18 06/14/16 07:52 BP 109/58 06/14/16 07:52 Pulse Ox 96 06/14/16 08:53 - Physical Examination General: No Apparent Distress HEENT: Positive: Normocephaly, Mucus Membranes Moist Neck: Positive: neck supple, trachea midline Cardiac: Positive: Reg Rate and Rhythm, S1/S2 Lungs: Positive: clear to auscultation Neuro: Positive: Grossly Intact Abdomen: Positive: Soft, Active Bowel Sounds. Negative: Tender Skin: Positive: Clear. Negative: Rash Musculoskeletal: Normal Range of Motion Extremities: Present: normal. Absent: edema - Labs and Meds CBC 06/14/16 Range/Units 09:17 Hgb 7.6 L (10.1-14.3) gm/dl Hct 25.0 L (30.3-42.9) % - Imaging and Cardiology EKG: image reviewed Echo: report reviewed (02/2016: EF 60-65%) - Telemetry EKG Rhythm: Sinus Rhythm - EKG Sinus rhythms and dysrhythmias: sinus rhythm Chamber hypertrophy or enlargement: left ventricular hypertro
--- NOTE | 2016-06-14 11:32 | Discharge Summary ---
Providers - Providers Date of Admission: 06/12/16 02:35 Date of discharge: 06/14/16 Attending physician: NESTOR SONG 06/12/16 08:34 Consult to Physician [CONS] Routine Consulting Provider: BERNA BAILEY Reason For Exam: cp Notified:: payroll secretary pl call 06/13/16 11:55 Consult to Physician [CONS] Routine Consulting Provider: MER CARTAGENA Reason For Exam: rectal bleeding Place consult to:: Dr. Cartagena Notified:: Nicole VERONICA Phone number called:: Was contact made?: Yes If yes, spoke with:: Mayra-Office Time called:: 13:14 Primary care physician: [employer]GER Hospitalization Condition: Fair Disposition: DC/TX ANOTHER TYPE HEALTHCARE Time spent for discharge: 32 min Core Measure Documentation - Palliative Care Palliative Care/ Comfort Measures: Not Applicable - Core Measures Any of the following diagnoses?: none Exam - Constitutional Vitals: Temp Pulse Resp BP Pulse Ox 98.6 F 82 18 109/58 96 06/14/16 07:52 06/14/16 07:52 06/14/16 07:52 06/14/16 07:52 06/14/16 08:53 General appearance: Present: no acute distress, well-nourished, obese - EENT Eyes: Present: PERRL, EOM intact - Neck Neck: Present: supple, normal ROM - Respiratory Respiratory effort: normal Respiratory: bilateral: diminished, negative: rales, rhonchi, wheezing - Cardiovascular Rhythm: regular Heart Sounds: Present: S1 & S2 - Extremities Extremities: no ischemia, pulses intact, pulses symmetrical Peripheral Pulses: within normal limits - Abdominal General gastrointestinal: Present: soft, non-tender, non-distended, normal bowel sounds - Integumentary Integumentary: Present: clear, warm - Musculoskeletal Musculoskeletal: strength equal bilaterally, generalized weakness - Psychiatric Psychiatric: appropriate mood/affect, cooperative - Neurologic Neurologic: CNII-XII intact, moves all extremities Plan Activity: advance as tolerated Diet: renal Additional Instructions: Renal/HD per schedule Follow up with: CECILIA BELLA MD [Primary Care Provider] - 3-5 Days ESTEBAN FRANCISCO MD [Staff Physician] - 7 Days LISANDRO SPENCE MD [Staff Physician] - 7 Days Prescriptions: Levofloxacin [Levaquin TAB] 250 mg PO Q48H #5 tablet Meclizine [Antivert] 12.5 mg PO DAILY PRN #30 tablet PRN Reason: Vertigo Metoprolol [Lopressor TAB] 12.5 mg PO BID #60 tablet
[2016-06-14] MEDS ORDERED: ANTIVERT PO SCH (12:00)
[2016-06-14] MEDS: PROCRIT IV PRN (14:26)
[2016-06-14 14:59] VITALS: BP 122/64
[2016-06-14] MEDS: HEPARIN IV PRN (15:00)
[2016-06-15] MEDS ORDERED: LEVAQUIN PO SCH (10:00)
--- NOTE | 2016-06-18 13:14 | Query- Chest Pain ---
Deborah Farnsworth Date:06/13/16 Independent Sales Representative/CDS:[place] Phone#: Exercise your independent professional judgment when responding to query. Questions asked do not imply a particular answer is desired or expected. We greatly appreciate your clarification on this issue. Clinical Documentation States: 36 y/o f admitted 06/12/16 for CP," -Atypical chest pain -Troponin negative -No acute EKG changes -Stress 11/16- No ischemia -Echo 02/16- EF 60-65% Given the atypical chest pain, negative troponin and recent negative stress test recommend medical management." (Dr. Kay and MANAGER [employer]IVE [employer] Marnie Babb, 06/12/16, consult note) Clinical Findings Show: [ x] EKG:No acute EKG changes [x] ECHO: EF 60-65% [x ] Troponin:_Negative Please document the etiology of Chest Pain: [ ] Myocardial Infarction [ ] Pneumonia [ ] Mediastinitis [ ] Costochondritis [ ] Pulmonary Embolism [ ] Coronary Artery Disease [ x] GERD [ ] Other: [ ] Comment/Explanation: Present on Admission: [ x] Yes (Y) [ ] Clinically undeterminable (W) [ ] No(N) Please document response in your Progress Notes and/or Discharge Summary and indicate if the condition was present on admission. GEORGES
== END 2016-06-14 18:58 | disposition other institution (70) | DRG 391 ==
LOC: ED 15:19 → 4A 06-12 02:35
PROVIDERS: ADMIT Internal Medicine; ATTEND Internal Medicine
PROC: 5A1D60Z (ICD-10-PCS; principal; 2016-06-12)
DX: K21.9 Gastro-esophageal reflux disease without esophagitis (principal); N18.6 End stage renal disease; I12.0 Hypertensive chronic kidney disease with stage 5 chronic kidney disease or end stage renal disease; M19.90 Unspecified osteoarthritis, unspecified site; F31.9 Bipolar disorder, unspecified; E78.5 Hyperlipidemia, unspecified; M10.9 Gout, unspecified; F20.9 Schizophrenia, unspecified; E11.22 Type 2 diabetes mellitus with diabetic chronic kidney disease; E03.9 Hypothyroidism, unspecified; D64.9 Anemia, unspecified; D72.829 Elevated white blood cell count, unspecified; G40.909 Epilepsy, unspecified, not intractable, without status epilepticus; Z87.442 Personal history of urinary calculi; Z98.890 Other specified postprocedural states; Z99.2 Dependence on renal dialysis; Z88.8 Allergy status to other drugs, medicaments and biological substances; Z79.899 Other long term (current) drug therapy; Z82.49 Family history of ischemic heart disease and other diseases of the circulatory system; Z88.6 Allergy status to analgesic agent
CPT/HCPCS: 36415; 70450; 71020; 80048; 80053; 80164; 82550; 82553; 82962; 84484; 85007; 85014; 85018; 85025; 85610; 85730; 87040; 90732; 93005; 93010; 96374; 96375; J0885; J1644; J1650; J2405; J3010; J7030

== ENCOUNTER 2016-06-15 23:22 | Inpatient (IN) | payer MEDICARE ==
[2016-06-16 02:14] LABS: Albumin 4.1 g/dL (3.9-5); Albumin/Globulin Ratio 1.6 %; BUN/Creatinine Ratio 5.76; Bilirubin,Total 0.8 mg/dL (0.1-1.2); Calcium 8.5 mg/dL (8.4-10.2); Chloride 95.6 mmol/L (98-107); Total Protein 6.6 g/dL (6.3-8.2)
[2016-06-16 04:03] LABS: Hematocrit 23.1 % (30.3-42.9); Hemoglobin 7.4 gm/dl (10.1-14.3); Mean Corpuscular HGB Conc 32 % (30-34); Mean Corpuscular Hemoglobin 42 pg (28-32); Platelet Count 125 K/mm3 (140-440); Red Blood Count 1.76 M/mm3 (3.65-5.03); Red Cell Distribution Width 18.6 % (13.2-15.2); White Blood Count 14.8 K/mm3 (4.5-11.0)
[2016-06-16 04:19] LABS: Mean Corpuscular Volume 131 fl (79-97)
[2016-06-16 05:19] LABS: Basophils % (Manual) 0 % (0.0-1.8); Blastocytes % (Manual) 0 %; Eosinophils % (Manual) 0 % (0.0-4.3)
[2016-06-16 05:20] LABS: Anisocytosis 2+; Macrocytosis 2+; Polychromasia Few; Stomatocytes 1+; Tear Drop Cells Few
[2016-06-16 05:21] LABS: Diff Status Complete; Large Platelets Rare; Platelet Estimate Consistent w Auto; Schistocytes Rare
--- NOTE | 2016-06-16 07:56 | Emergency Department Report ---
ED General Adult HPI - General Chief complaint: Weakness Stated complaint: DIZZINESS/EAR PAIN/SOB Time Seen by Provider: 06/16/16 07:55 Source: patient Mode of arrival: Ambulatory Limitations: No Limitations - History of Present Illness Initial comments: This is a 36-year-old end-stage renal failure patient on dialysis (last dialyzed on Saturday) who has been recently admitted to the hospital. He was having rectal bleeding and anemia. Is not complaining of any continued rectal bleeding now. She has a history of diabetes hypertension and schizophrenia and bipolar disorder. She's had previous foot surgery but not for several years. She's had multiple access issues and surgeries. She states that she has a maturing graft in her left side and a Vas-Cath in her right thigh. She states that her left leg has become swollen since yesterday. She is not here for that however. She presents complaining of generalized weakness. She does have some dyspnea on exertion. She feels like she may have had some chills. She did not take her temperature. She is a poor historian. -: Gradual, days(s) Associated Symptoms: denies other symptoms, fever/chills (question), malaise, shortness of breath, weakness, other (states some diarrhea) - Related Data Home Medications Medication Instructions Recorded Confirmed Last Taken ARIPiprazole [Abilify TAB] 15 mg PO DAILY 07/21/15 06/07/16 06/07/16 20:00 Divalproex ER [Depakote ER] 500 mg PO QDAY 07/21/15 06/07/16 06/07/16 20:00 Levothyroxine [Synthroid] 25 mcg PO QAM 07/21/15 06/07/16 06/08/16 08:30 Oxybutynin [Ditropan] 5 mg PO BID 07/21/15 06/07/16 06/08/16 08:30 Calcium Acetate 667 mg PO TID 11/01/15 06/07/16 06/07/16 20:00 Docusate Sodium [Colace CAP] 1 tab PO DAILY 11/01/15 06/07/16 06/07/16 20:00 FLUoxetine HCL [PROzac] 40 mg PO QDAY 11/01/15 06/07/16 06/07/16 20:00 Esomeprazole Magnesium [NexIUM] 40 mg PO QDAY 11/16/15 06/07/16 06/08/16 08:30 Mirtazapine 15 mg PO QDAY 11/16/15 06/07/16 06/07/16 20:00 Warfarin [Coumadin] 2.5 mg PO QDAY 06/07/16 06/08/16 06/06/16 Previous Rx's Medication Instructions Recorded Last Taken Type Dicyclomine [Bentyl] 10 mg PO TID PRN #15 capsule 01/12/16 06/07/16 20:00 Rx ALBUTEROL Inhaler [ProAir HFA 2 puff IH QID PRN #1 inhalation 02/07/16 05/24/16 Rx Inhaler] HYDROcodone/APAP 7.5-325 [[place] 1 each PO Q6HR PRN #60 tablet 06/08/16 Unknown Rx 7.5-325 mg TAB] Levofloxacin [Levaquin TAB] 250 mg PO Q48H #5 tablet 06/14/16 Unknown Rx Meclizine [Antivert] 12.5 mg PO DAILY PRN #30 tablet 06/14/16 Unknown Rx Metoprolol [Lopressor TAB] 12.5 mg PO BID #60 tablet 06/14/16 Unknown Rx Allergies Allergy/AdvReac Type Severity Reaction Status Date / Time metformin AdvReac Intermediate Vomiting Verified 01/10/16 02:52 colchicine [From Colcrys] AdvReac Unknown Verified 01/10/16 02:52 quetiapine fumarate AdvReac HYPER Verified 01/10/16 02:52 [From Seroquel] ED Review of Systems ROS: Stated complaint: DIZZINESS/EAR PAIN/SOB Other details as noted in HPI Constitutional: weakness. denies: chills, fever Eyes: denies: eye pain, eye discharge, vision change ENT: denies: ear pain, throat pain Respiratory: shortness of breath. denies: cough, wheezing Cardiovascular: denies: chest pain, palpitations Endocrine: no symptoms reported Gastrointestinal: nausea. denies: abdominal pain, diarrhea Genitourinary: urgency, other (states urinating less) Musculoskeletal: denies: back pain, joint swelling, arthralgia Skin: denies: rash, lesions Neurological: denies: headache, weakness, paresthesias Psychiatric: denies: anxiety, depression Hematological/Lymphatic: denies: easy bleeding, easy bruising ED Past Medical Hx - Past Medical History Previous Medical History?: Yes Hx Hypertension: Yes Hx Diabetes: Yes Hx GERD: Yes Hx Renal Disease: Yes (DIALYSIS M-W-F; right chest permacath) Hx Arthritis: Yes Hx Kidney Stones: Yes Hx Psychiatric Treatment: Yes (bipolar/ SCHIZOPHRENIA) Hx HIV: No Additional medical history: Gout; thyroid, hyperlipedemia - Surgical History Past Surgical History?: Yes Additional Surgical History: Foot surgery. PERMA CATH RIGHT LEG. AV graft placement to right arm. - Social History Smoking Status: Never Smoker Substance Use Type: None - Medications Home Medications: Home Medications Medication Instructions Recorded Confirmed Last Taken Type ARIPiprazole [Abilify TAB] 15 mg PO DAILY 07/21/15 06/07/16 06/07/16 20:00 History Divalproex ER [Depakote ER] 500 mg PO QDAY 07/21/15 06/07/16 06/07/16 20:00 History Levothyroxine [Synthroid] 25 mcg PO QAM 07/21/15 06/07/16 06/08/16 08:30 History Oxybutynin [Ditropan] 5 mg PO BID 07/21/15 06/07/16 06/08/16 08:30 History Calcium Acetate 667 mg PO TID 11/01/15 06/07/16 06/07/16 20:00 History Docusate Sodium [Colace CAP] 1 tab PO DAILY 11/01/15 06/07/16 06/07/16 20:00 History FLUoxetine HCL [PROzac] 40 mg PO QDAY 11/01/15 06/07/16 06/07/16 20:00 History Esomeprazole Magnesium [NexIUM] 40 mg PO QDAY 11/16/15 06/07/16 06/08/16 08:30 History Mirtazapine 15 mg PO QDAY 11/16/15 06/07/16 06/07/16 20:00 History Dicyclomine [Bentyl] 10 mg PO TID PRN #15 capsule 01/12/16 06/07/16 06/07/16 20: 00 Rx ALBUTEROL Inhaler [ProAir HFA 2 puff IH QID PRN #1 inhalation 02/07/16 06/08/16 05/24/16 Rx Inhaler] Warfarin [Coumadin] 2.5 mg PO QDAY 06/07/16 06/08/16 06/06/16 History HYDROcodone/APAP 7.5-325 [[place] 1 each PO Q6HR PRN #60 tablet 06/08/16 Unknown Rx 7.5-325 mg TAB] Levofloxacin [Levaquin TAB] 250 mg PO Q48H #5 tablet 06/14/16 Unknown Rx Meclizine [Antivert] 12.5 mg PO DAILY PRN #30 tablet 06/14/16 Unknown Rx Metoprolol [Lopressor TAB] 12.5 mg PO BID #60 tablet 06/14/16 Unknown Rx ED Physical Exam - General Limitations: No Limitations General appearance: alert, in no apparent distress, other (pale) - Head Head exam: Present: atraumatic, normocephalic - Eye Eye exam: Present: normal appearance. Absent: scleral icterus - ENT ENT exam: Present: mucous membranes moist - Neck Neck exam: Present: normal inspection. Absent: tenderness, meningismus - Respiratory Respiratory exam: Present: normal lung sounds bilaterally. Absent: respiratory distress - Cardiovascular Cardiovascular Exam: Present: regular rate, normal rhythm. Absent: systolic murmur, diastolic murmur, rubs, gallop - GI/Abdominal GI/Abdominal exam: Present: soft, normal bowel sounds. Absent: distended, tenderness, guarding, rebound, rigid - Extremities Exam Extremities exam: Present: other (to 2+ left leg edema, dressing on the right Vas-Cath) - Back Exam Back exam: Present: normal inspection - Neurological Exam Neurological exam: Present: alert, oriented X3, CN II-XII intact. Absent: motor sensory deficit - Psychiatric Psychiatric exam: Present: anxious, flat affect - Skin Skin exam: Present: warm, dry, intact, normal color. Absent: rash ED Course Vital Signs 06/15/16 06/16/16 06/16/16 23:45 07:55 09:39 Temperature 98.5 F 98.6 F Pulse Rate 64 69 Respiratory 20 16 16 Rate Blood Pressure 106/63 Blood Pressure 114/69 [Left] O2 Sat by Pulse 100 99 99 Oximetry - Reevaluation(s) Reevaluation #1: The patient is treated empirically for line sepsis. She has bandemia and more immature cells. In addition she's complaining of urinary symptoms. A straight cath has been ordered as well as Zosyn to cover this. The patient was admitted by Dr. Velázquez for further care and evaluation. I did order a Doppler of her left leg as it is quite swollen. She states that this is been the case for the last 1-2 days. 06/16/16 09:55 Reevaluation #2: Transfusion of 1 unit was ordered. Patient admitted to the hospitalist service by Dr. Velázquez for further evaluation and care. 06/16/16 11:19 06/16/16 11:19 ED Medical Decision Making - Lab Data Result diagrams: 06/16/16 01:52 06/16/16 01:33 Laboratory Results - last 24 hr 06/16/16 06/16/16 06/16/16 01:05 01:33 01:52 WBC 14.8 H RBC 1.76 L Hgb 7.4 L Hct 23.1 L MCV 131 H MCH 42 H MCHC 32 RDW 18.6 H Plt Count 125 L Add Manual Diff Complete Total Counted 100 Seg Neuts % (Manual) 66.0 Band Neutrophils % 8.0 Lymphocytes % (Manual) 17.0 Reactive Lymphs % (Man) 0 Monocytes % (Manual) 6.0 Eosinophils % (Manual) 0 Basophils % (Manual) 0 Metamyelocytes % 3.0 Myelocytes % 0 Promyelocytes % 0 Blast Cells % 0 Nucleated RBC % 17.0 H Seg Neutrophils # Man 9.8 H Band Neutrophils # 1.2 Lymphocytes # (Manual) 2.5 Abs React Lymphs (Man) 0.0 Monocytes # (Manual) 0.9 H Eosinophils # (Manual) 0.0 Basophils # (Manual) 0.0 Metamyelocytes # 0.4 Myelocytes # 0.0 Promyelocytes # 0.0 Blast Cells # 0.0 WBC Morphology Not Reportable Hypersegmented Neuts Not Reportable Hyposegmented Neuts Not Reportable Hypogranular Neuts Not Reportable Smudge Cells Not Reportable Toxic Granulation Not Reportable Toxic Vacuolation Not Reportable Dohle Bodies Not Reportable Pelger-Huet Anomaly Not Reportable Le Rods Not Reportable Platelet Estimate Consistent w auto Clumped Platelets Not Reportable Plt Clumps, EDTA Not Reportable Large Platelets Rare Giant Platelets Not Reportable Platelet Satelliting Not Reportable Plt Morphology Comment Not Reportable RBC Morphology Not Reportable Dimorphic RBCs Not Reportable Polychromasia Few Hypochromasia Not Reportable Poikilocytosis Not Reportable Anisocytosis 2+ Microcytosis Not Reportable Macrocytosis 2+ Spherocytes Not Reportable Pappenheimer Bodies Not Reportable Sickle Cells Not Reportable Target Cells Not Reportable Tear Drop Cells Few Ovalocytes Not Reportable Stomatocytes 1+ Helmet Cells Not Reportable Kwong-Mize Bodies Not Reportable [place] Rings Not Reportable Fortine Cells Not Reportable Bite Cells Not Reportable Crenated Cell Not Reportable Elliptocytes Not Reportable Acanthocytes (Spur) Not Reportable Rouleaux Not Reportable Hemoglobin C Crystals Not Reportable Schistocytes Rare Malaria parasites Not Reportable Abdiel Bodies Not Reportable Hem Pathologist Commnt No Sodium 139 Potassium 4.0 Chloride 95.6 L Carbon Dioxide 25 Anion Gap 22 BUN 15 Creatinine 2.6 H Estimated GFR 21 BUN/Creatinine Ratio 5.76 Glucose 131 H POC Glucose 141 H Calcium 8.5 Total Bilirubin 0.8 AST 809 H ALT 382 H Alkaline Phosphatase 187 H Total Protein 6.6 Albumin 4.1 Albumin/Globulin Ratio 1.6 - Radiology Data interpreted by me: Chest x-ray shows no acute process. There are vascular grafts present. A Doppler examination of the left lower extremity showed no DVT. I suppose there is some steel syndrome but the AV graft is patent. Critical Care Time: Yes Critical care time in (mins) excluding proc time.: 40 Critical care attestation.: If time is entered above; I have spent that time in minutes in the direct care of this critically ill patient, excluding procedure time. ED Disposition Clinical Impression: Line sepsis associated with dialysis catheter, Symptomatic anemia, End-stage renal disease needing dialysis Disposition: OP ADMITTED IP TO THIS HOSP Is pt being admited?: Yes Does the pt Need Aspirin: No (history of rectal bleeding) Condition: Stable Time of Disposition: 11:20
[2016-06-16] MEDS ORDERED: NACL 0.9% 1000 ML 1,000 ML IV ONE (08:09)
[2016-06-16] MEDS ORDERED: NACL 0.9% 500 ML 500 ML IV ONE ×2 (08:34→18:40)
[2016-06-16] MEDS ORDERED: ZOSYN/NS 3.375GM/50ML 50 ML IV ONE (08:40)
[2016-06-16] MEDS ORDERED: VANCOMYCIN PHARMACY TO DOSE IV SCH (09:00)
--- NOTE | 2016-06-16 09:17 | XRay Report ---
AP CHEST :06/16/16 CLINICAL: Hypertension. COMPARISON:06/11/16 FINDINGS: Normal heart and pulmonary vasculature. The lungs are normally expanded and clear. A large caliber right central venous catheter is unchanged. A second inferior midline catheter is unchanged. IMPRESSION: No acute cardiopulmonary process.
[2016-06-16 09:36] LABS: Creatine Kinase MB 1.4 ng/mL (0.0-4.0)
[2016-06-16 09:37] LABS: Creatine Kinase 33 units/L (30-135); INR 1.45 (0.87-1.13); Magnesium 1.5 mg/dL (1.7-2.3)
[2016-06-16 09:38] LABS: Partial Thromboplastin Time 27.5 Sec. (24.2-36.6)
[2016-06-16] MEDS: VANCOMYCIN/NS 1 GM/250 ML 250 ML IV ONE ×2 (12:30→14:59)
[2016-06-16] MEDS ORDERED: ANTIVERT PO PRN (12:34)
[2016-06-16] MEDS ORDERED: NORCO 7.5/325 PO PRN (12:34)
[2016-06-16] MEDS ORDERED: PROAIR IH PRN (12:34)
[2016-06-16] MEDS ORDERED: BENTYL PO PRN (12:34)
--- NOTE | 2016-06-16 12:34 | Event Note ---
Date: 06/16/16 See H/p in reports Line sepsis ESRD on HD
[2016-06-16] MEDS ORDERED: MILK OF MAGNESIA PO PRN (12:42)
[2016-06-16] MEDS ORDERED: ZOFRAN IV PRN (12:42)
[2016-06-16] MEDS ORDERED: TYLENOL PO PRN (12:42)
[2016-06-16] MEDS ORDERED: DULCOLAX PR PRN (12:42)
[2016-06-16] MEDS ORDERED: PERCOCET 5/325 PO PRN (12:42)
[2016-06-16] MEDS ORDERED: NON-FORMULARY (Esomeprazole Magnesium [Nexium] 40 MG) PO SCH (12:45)
[2016-06-16] MEDS ORDERED: NON-FORMULARY (Fluoxetine Hcl [Prozac] 40 MG) PO SCH (12:45)
[2016-06-16] MEDS ORDERED: LOVENOX SUB-Q SCH (13:00)
[2016-06-16] MEDS ORDERED: VANCOMYCIN VIAL 1,000 MG in NACL 0.9% 250ML 250 ML IV ONE (13:25)
[2016-06-16] MEDS: PROVENTIL IH SCH ×2 (17:15→19:11)
[2016-06-16] MEDS ORDERED: NACL 0.9% 250ML 0 ML ONE (18:08)
[2016-06-16] MEDS: PHOSLO PO SCH (21:06)
[2016-06-16] MEDS: DITROPAN PO SCH (21:55)
[2016-06-16] MEDS: LOPRESSOR PO SCH (21:56)
[2016-06-16] MEDS: HEPARIN SUB-Q SCH (21:56)
--- NOTE | 2016-06-17 00:03 | Admit Criteria Form ---
Admission Criteria Documentation: RENAL FAILURE, CHRONIC Clinical Indications for Admission to Inpatient Care (Place 'X' for any and all applicable criteria): Admission is indicated for ANY ONE of the following (1)(2)(3)(4)(5): [X ]I. Inpatient admission required rather than observation care (Use Renal Failure, Chronic: Observation Care Criteria as appropriate) because of ANY ONE of the following: [ ]a) Volume overload or uremic symptoms (eg, clinically significant pulmonary edema, hypertension, pericarditis, acidosis) too severe for, or not responsive (eg, for over 24 hours) to emergency department or observation care dialysis or treatment regimen (11) [ ]b) Hemodynamic instability that is severe or persistent [ ]c) Respiratory distress that is severe or persistent (11) [ ]d) Clinically significant electrolyte abnormality that requires inpatient care (eg,hyperkalemia with severe ECG findings)[B] [ ]e) Supplement O2 or respiratory therapy for over 24hrs that is performable only in acute inpatient setting [ ]f) Continuous IV infusion of anticoagulation, platelet inhibitor, vasoactive, or Antiarrhythmic medication (15), [ ]g) Pulmonary artery catheter monitoring [ ]h) Temporary pacemaker placement [ ]i) Emergent pericardiocentesis [X ]j) Other condition, treatment or monitoring requiring inpatient admission [ ]II. Unexplained syncope [A] [ ]III. Recurrent seizures [ ]IV. Severe infections not treatable in outpatient setting (eg, peritonitis)(9 ) [ ]V. Cardiac arrhythmias of immediate concern [ ]. Encephalopathy [ ]VII.Bleeding abnormalities (eg, platelet dysfunction) with active (eg, gastrointestinal) bleeding Extended stay beyond goal length of stay may be needed for (3)(4)(35)(36): [ ]a) Continuing uremic complications [ ]b) Comorbidities or complications The original [employer] content created by [employer] has been revised. The portions of the content which have been revised are identified through the use of italic text or in bold, and [email or web address] has neither reviewed nor approved the modified material. All other unmodified content is copyright [employer]. Please see references footnoted in the original [email or web address] [employer] edition 2016 Admission Criteria Met: Yes
[2016-06-17] MEDS: SYNTHROID PO SCH (06:04)
[2016-06-17] MEDS: PROVENTIL IH SCH ×4 (08:02→19:30)
--- NOTE | 2016-06-17 08:43 | Consultation ---
History of Present Illness - Reason for Consult Consult date: 06/17/16 end stage renal disease Requesting physician: DELGADO PRABHAKAR - History of Present Illness This is a 36-year-old end-stage renal failure patient on dialysis (last dialyzed on Saturday) who has been recently admitted to the hospital. He was having rectal bleeding and anemia. Is not complaining of any continued rectal bleeding now. She has a history of diabetes hypertension and schizophrenia and bipolar disorder. She's had previous foot surgery but not for several years. She's had multiple access issues and surgeries. She states that she has a maturing graft in her left side and a Vas-Cath in her right thigh. She states that her left leg has become swollen since yesterday. She is not here for that however. She presents complaining of generalized weakness. She does have some dyspnea on exertion. She feels like she may have had some chills. She did not take her temperature. She is a poor historian. Past History Past Medical History: anemia, dialysis, hypertension, PVD, renal failure Past Surgical History: Other (dialysis access placement) Social history: denies: prescription drug abuse, IV drug use Family history: hypertension Medications and Allergies Allergies Allergy/AdvReac Type Severity Reaction Status Date / Time metformin AdvReac Intermediate Vomiting Verified 01/10/16 02:52 colchicine [From Colcrys] AdvReac Unknown Verified 01/10/16 02:52 quetiapine fumarate AdvReac HYPER Verified 01/10/16 02:52 [From Seroquel] Home Medications Medication Instructions Recorded Confirmed Last Taken Type ARIPiprazole [Abilify TAB] 15 mg PO DAILY 07/21/15 06/16/16 06/07/16 20:00 History Divalproex ER [Depakote ER] 500 mg PO QDAY 07/21/15 06/16/16 06/07/16 20:00 History Levothyroxine [Synthroid] 25 mcg PO QAM 07/21/15 06/16/16 06/08/16 08:30 History Oxybutynin [Ditropan] 5 mg PO BID 07/21/15 06/16/16 06/08/16 08:30 History Calcium Acetate 667 mg PO TID 11/01/15 06/16/16 06/07/16 20:00 History Docusate Sodium [Colace CAP] 1 tab PO DAILY 11/01/15 06/16/16 06/07/16 20:00 History FLUoxetine HCL [PROzac] 40 mg PO QDAY 11/01/15 06/16/16 06/07/16 20:00 History Esomeprazole Magnesium [NexIUM] 40 mg PO QDAY 11/16/15 06/16/16 06/08/16 08:30 History Mirtazapine 15 mg PO QDAY 11/16/15 06/16/16 06/07/16 20:00 History Dicyclomine [Bentyl] 10 mg PO TID PRN #15 capsule 01/12/16 06/16/16 06/07/16 20: 00 Rx ALBUTEROL Inhaler [ProAir HFA 2 puff IH QID PRN #1 inhalation 02/07/16 06/16/16 05/24/16 Rx Inhaler] Warfarin [Coumadin] 2.5 mg PO QDAY 06/07/16 06/16/16 06/06/16 History HYDROcodone/APAP 7.5-325 [[place] 1 each PO Q6HR PRN #60 tablet 06/08/16 06/16/16 Unknown Rx 7.5-325 mg TAB] Levofloxacin [Levaquin TAB] 250 mg PO Q48H #5 tablet 06/14/16 06/16/16 Unknown Rx Meclizine [Antivert] 12.5 mg PO DAILY PRN #30 tablet 06/14/16 06/16/16 Unknown Rx Metoprolol [Lopressor TAB] 12.5 mg PO BID #60 tablet 06/14/16 06/16/16 Unknown Rx Active Meds: Active Medications Acetaminophen (Tylenol) 650 mg PO Q4H PRN PRN Reason: Pain MILD(1-3)/Fever >100.5/POLK Acetaminophen/Hydrocodone Bitart ([place] 7.5/325) 1 each PO Q6HR PRN PRN Reason: Pain Albuterol (Proventil) 2.5 mg IH QIDRT [facility] Last Admin: 06/17/16 08:02 Dose: 2.5 mg Aripiprazole (Abilify) 15 mg PO DAILY [facility] Bisacodyl (Dulcolax) 10 mg [place] QDAY PRN PRN Reason: Constipation unrelieved by MOM Calcium Acetate (Phoslo) 667 mg PO TID [facility] Last Admin: 06/16/16 21:06 Dose: 667 mg Dicyclomine HCl (Bentyl) 10 mg PO TID PRN PRN Reason: Pain Divalproex Sodium (Depakote Er) 500 mg PO QDAY [facility] Docusate Sodium (Colace) 100 mg PO DAILY [facility] Fluoxetine HCl (Prozac) 40 mg PO QDAY [facility] Heparin Sodium (Porcine) (Heparin) 5,000 unit SUB-Q Q12HR [facility] Last Admin: 06/16/16 21:56 Dose: Not Given Levothyroxine Sodium (Synthroid) 25 mcg PO Q24H [facility] Last Admin: 06/17/16 06:04 Dose: 25 mcg Meclizine HCl (Antivert) 12.5 mg PO DAILY PRN PRN Reason: Vertigo Metoprolol Tartrate (Lopressor) 12.5 mg PO BID [facility] Last Admin: 06/16/16 21:56 Dose: Not Given Mirtazapine (Remeron) 15 mg PO QDAY [facility] Ondansetron HCl (Zofran) 4 mg IV Q8H PRN PRN Reason: N/V unrelieved by Reglan Oxybutynin Chloride (Ditropan) 5 mg PO BID [facility] Last Admin: 06/16/16 21:55 Dose: 5 mg Oxycodone/Acetaminophen (Percocet 5/325) 1 tab PO Q6H PRN PRN Reason: Pain, Moderate (4-6) Pantoprazole Sodium (Protonix) 40 mg PO QDAC [facility] Vancomycin HCl (Vancomycin Pharmacy To Dose) 1 each IV PKCONSULT [facility] PRN Reason: Protocol Warfarin Sodium (Coumadin) 2.5 mg PO QDAY [facility] PRN Reason: Protocol Review of Systems Constitutional: fatigue, weakness, malaise Exam - Vital Signs Vital signs: Vital Signs Temp Pulse Resp BP Pulse Ox 98.5 F 64 20 106/63 100 06/15/16 23:45 06/15/16 23:45 06/15/16 23:45 06/15/16 23:45 06/15/16 23:45 - Physical Exam Narrative exam: - General Limitations: No Limitations General appearance: alert, in no apparent distress, other (pale) - Head Head exam: Present: atraumatic, normocephalic - Eye Eye exam: Present: normal appearance. Absent: scleral icterus - ENT ENT exam: Present: mucous membranes moist - Neck Neck exam: Present: normal inspection. Absent: tenderness, meningismus - Respiratory Respiratory exam: Present: normal lung sounds bilaterally. Absent: respiratory distress - Cardiovascular Cardiovascular Exam: Present: regular rate, normal rhythm. Absent: systolic murmur, diastolic murmur, rubs, gallop - GI/Abdominal GI/Abdominal exam: Present: soft, normal bowel sounds. Absent: distended, tenderness, guarding, rebound, rigid - Extremities Exam Extremities exam: Present: other (to 2+ left leg edema, dressing on the right Vas-Cath) - Back Exam Back exam: Present: normal inspection - Neurological Exam Neurological exam: Present: alert, oriented X3, CN II-XII intact. Absent: motor sensory deficit - Psychiatric Psychiatric exam: Present: anxious, flat affect - Skin Skin exam: Present: warm, dry, intact, normal color. Absent: rash Results - Lab Results 06/16/16 01:52 06/16/16 01:33 Most recent lab results Calcium 8.5 mg/dL (8.4-10.2) 06/16/16 01:33 Magnesium 1.5 mg/dL (1.7-2.3) L 06/16/16 08:43 Assessment and Plan Impression: * esrd * leucocytosis * weakness * symtomatic anemia * r/o line sepsis Plan: * gentle ivfs * follow up blood cultures x 2 * strict i/o * prbcs prn * hd q MWF * renal diet
[2016-06-17] MEDS: PHOSLO PO SCH ×3 (08:56→21:10)
[2016-06-17] MEDS: PROTONIX PO SCH (08:57)
--- NOTE | 2016-06-17 09:51 | Progress Note ---
Assessment and Plan Assessment and plan: 1. Sepsis. Etiology most likely line sepsis. We will follow up blood cultures and continue IV fluid hydration. Patient does have a leukocytosis of 14.8. Trend lactate levels. Consider ID consultation. 2. Lower extremity swelling. Check Doppler ultrasound. 3. ESRD. Continue hemodialysis MWF per nephrology. Stict I/Os. Continue Renal diet. 4. Anemia of CKD. Continue to follow CBC and transfuse as necessary. 5. DVT prophylaxis. Continue heparin. History Interval history: No new issues overnight. Hospitalist Physical - Constitutional Vitals: Temp Pulse Resp BP Pulse Ox 97.7 F 94 H 18 98/57 96 06/17/16 08:00 06/17/16 08:02 06/17/16 08:02 06/17/16 08:00 06/17/16 08:00 General appearance: Present: no acute distress, well-nourished - EENT Eyes: Present: PERRL, EOM intact ENT: hearing intact, clear oral mucosa, dentition normal - Neck Neck: Present: supple, normal ROM - Respiratory Respiratory effort: normal Respiratory: bilateral: CTA - Cardiovascular Rhythm: regular Heart Sounds: Present: S1 & S2. Absent: gallop, rub - Extremities Extremities: no ischemia, No edema, Full ROM - Abdominal General gastrointestinal: soft, non-tender, non-distended, normal bowel sounds - Integumentary Integumentary: Present: clear, warm, dry - Neurologic Neurologic: CNII-XII intact, moves all extremities Results - Labs CBC & Chem 7: 06/16/16 01:52 06/16/16 01:33 Labs: Laboratory Last Values WBC 14.8 K/mm3 (4.5-11.0) H 06/16/16 01:52 RBC 1.76 M/mm3 (3.65-5.03) L 06/16/16 01:52 Hgb 7.4 gm/dl (10.1-14.3) L 06/16/16 01:52 Hct 23.1 % (30.3-42.9) L 06/16/16 01:52 MCV 131 fl (79-97) H 06/16/16 01:52 MCH 42 pg (28-32) H 06/16/16 01:52 MCHC 32 % (30-34) 06/16/16 01:52 RDW 18.6 % (13.2-15.2) H 06/16/16 01:52 Plt Count 125 K/mm3 (140-440) L 06/16/16 01:52 Add Manual Diff Complete 06/16/16 01:52 Total Counted 100 06/16/16 01:52 Seg Neuts % (Manual) 66.0 % (40.0-70.0) 06/16/16 01:52 Band Neutrophils % 8.0 % 06/16/16 01:52 Lymphocytes % (Manual) 17.0 % (13.4-35.0) 06/16/16 01:52 Reactive Lymphs % (Man) 0 % 06/16/16 01:52 Monocytes % (Manual) 6.0 % (0.0-7.3) 06/16/16 01:52 Eosinophils % (Manual) 0 % (0.0-4.3) 06/16/16 01:52 Basophils % (Manual) 0 % (0.0-1.8) 06/16/16 01:52 Metamyelocytes % 3.0 % 06/16/16 01:52 Myelocytes % 0 % 06/16/16 01:52 Promyelocytes % 0 % 06/16/16 01:52 Blast Cells % 0 % 06/16/16 01:52 Nucleated RBC % 17.0 % (0.0-0.9) H 06/16/16 01:52 Seg Neutrophils # Man 9.8 K/mm3 (1.8-7.7) H 06/16/16 01:52 Band Neutrophils # 1.2 K/mm3 06/16/16 01:52 Lymphocytes # (Manual) 2.5 K/mm3 (1.2-5.4) 06/16/16 01:52 Abs React Lymphs (Man) 0.0 K/mm3 06/16/16 01:52 Monocytes # (Manual) 0.9 K/mm3 (0.0-0.8) H 06/16/16 01:52 Eosinophils # (Manual) 0.0 K/mm3 (0.0-0.4) 06/16/16 01:52 Basophils # (Manual) 0.0 K/mm3 (0.0-0.1) 06/16/16 01:52 Metamyelocytes # 0.4 K/mm3 06/16/16 01:52 Myelocytes # 0.0 K/mm3 06/16/16 01:52 Promyelocytes # 0.0 K/mm3 06/16/16 01:52 Blast Cells # 0.0 K/mm3 06/16/16 01:52 WBC Morphology Not Reportable 06/16/16 01:52 Hypersegmented Neuts Not Reportable 06/16/16 01:52 Hyposegmented Neuts Not Reportable 06/16/16 01:52 Hypogranular Neuts Not Reportable 06/16/16 01:52 Smudge Cells Not Reportable 06/16/16 01:52 Toxic Granulation Not Reportable 06/16/16 01:52 Toxic Vacuolation Not Reportable 06/16/16 01:52 Dohle Bodies Not Reportable 06/16/16 01:52 Pelger-Huet Anomaly Not Reportable 06/16/16 01:52 Le Rods Not Reportable 06/16/16 01:52 Platelet Estimate Consistent w auto 06/16/16 01:52 Clumped Platelets Not Reportable 06/16/16 01:52 Plt Clumps, EDTA Not Reportable 06/16/16 01:52 Large Platelets Rare 06/16/16 01:52 Giant Platelets Not Reportable 06/16/16 01:52 Platelet Satelliting Not Reportable 06/16/16 01:52 Plt Morphology Comment Not Reportable 06/16/16 01:52 RBC Morphology Not Reportable 06/16/16 01:52 Dimorphic RBCs Not Reportable 06/16/16 01:52 Polychromasia Few 06/16/16 01:52 Hypochromasia Not Reportable 06/16/16 01:52 Poikilocytosis Not Reportable 06/16/16 01:52 Anisocytosis 2+ 06/16/16 01:52 Microcytosis Not Reportable 06/16/16 01:52 Macrocytosis 2+ 06/16/16 01:52 Spherocytes Not Reportable 06/16/16 01:52 Pappenheimer Bodies Not Reportable 06/16/16 01:52 Sickle Cells Not Reportable 06/16/16 01:52 Target Cells Not Reportable 06/16/16 01:52 Tear Drop Cells Few 06/16/16 01:52 Ovalocytes Not Reportable 06/16/16 01:52 Stomatocytes 1+ 06/16/16 01:52 Helmet Cells Not Reportable 06/16/16 01:52 Kwong-Lawai Bodies Not Reportable 06/16/16 01:52 [place] Rings Not Reportable 06/16/16 01:52 Woody Cells Not Reportable 06/16/16 01:52 Bite Cells Not Reportable 06/16/16 01:52 Crenated Cell Not Reportable 06/16/16 01:52 Elliptocytes Not Reportable 06/16/16 01:52 Acanthocytes (Spur) Not Reportable 06/16/16 01:52 Rouleaux Not Reportable 06/16/16 01:52 Hemoglobin C Crystals Not Reportable 06/16/16 01:52 Schistocytes Rare 06/16/16 01:52 Malaria parasites Not Reportable 06/16/16 01:52 Abdiel Bodies Not Reportable 06/16/16 01:52 Hem Pathologist Commnt No 06/16/16 01:52 PT 17.6 Sec. (12.2-14.9) H 06/16/16 08:43 INR 1.45 (0.87-1.13) H 06/16/16 08:43 APTT 27.5 Sec. (24.2-36.6) 06/16/16 08:43 Sodium 139 mmol/L (137-145) 06/16/16 01:33 Potassium 4.0 mmol/L (3.6-5.0) 06/16/16 01:33 Chloride 95.6 mmol/L (98-107) L 06/16/16 01:33 Carbon Dioxide 25 mmol/L (22-30) 06/16/16 01:33 Anion Gap 22 mmol/L 06/16/16 01:33 BUN 15 mg/dL (7-17) 06/16/16 01:33 Creatinine 2.6 mg/dL (0.7-1.2) H 06/16/16 01:33 Estimated GFR 21 ml/min 06/16/16 01:33 BUN/Creatinine Ratio 5.76 % 06/16/16 01:33 Glucose 131 mg/dL (65-100) H 06/16/16 01:33 POC Glucose 94 (70-105) 06/17/16 06:21 Lactic Acid 1.7 mmol/L (0.7-2.0) 06/16/16 12:17 Calcium 8.5 mg/dL (8.4-10.2) 06/16/16 01:33 Magnesium 1.5 mg/dL (1.7-2.3) L 06/16/16 08:43 Total Bilirubin 0.8 mg/dL (0.1-1.2) 06/16/16 01:33 AST 809 units/L (5-40) H 06/16/16 01:33 ALT 382 units/L (7-56) H 06/16/16 01:33 Alkaline Phosphatase 187 units/L (35-129) H 06/16/16 01:33 Ammonia 55.0 umol/L (25-60) 06/16/16 08:43 Total Creatine Kinase 33 units/L (30-135) 06/16/16 08:43 CK-MB (CK-2) 1.4 ng/mL (0.0-4.0) 06/16/16 08:43 CK-MB (CK-2) Rel Index 4.2 (0-4) H 06/16/16 08:43 Troponin T < 0.010 ng/mL (0.00-0.029) 06/16/16 08:43 NT-Pro-B Natriuret Pep 2973 pg/mL (0-450) H 06/16/16 08:43 Total Protein 6.6 g/dL (6.3-8.2) 06/16/16 01:33 Albumin 4.1 g/dL (3.9-5) 06/16/16 01:33 Albumin/Globulin Ratio 1.6 % 06/16/16 01:33 Blood Type O POSITIVE 06/16/16 12:17 Antibody Screen Negative 06/16/16 12:17 Crossmatch See Detail 06/16/16 12:17
--- NOTE | 2016-06-17 09:58 | History and Physical Report ---
CHIEF COMPLAINT: Weakness, shortness of breath, and chills. HISTORY OF PRESENT ILLNESS: A 36-year-old female with end-stage renal disease with multiple admissions, comes in for feeling weak, chills, and fever. The patient has a Vas-Cath on her right thigh for last one year. She has AV graft on the left side. CURRENT MEDICATIONS: Per chart. PAST MEDICAL HISTORY: Significant for end-stage renal disease, diabetes, gastroesophageal reflux disease, dialysis, kidney stones, arthritis, bipolar and schizophrenia, gout, thyroid, and hyperlipidemia. PAST SURGICAL HISTORY: Perm-A-Cath right leg, AV graft placement to the right arm. SOCIAL HISTORY: Does not smoke. No alcohol, no recreational drugs. FAMILY HISTORY: Significant for hypertension. REVIEW OF SYSTEMS: Significant for fever, chills, and weakness. Otherwise, 14-point review of systems is essentially negative. PHYSICAL EXAMINATION: GENERAL: Young female lying in bed in no distress. VITAL SIGNS: Temperature is 98.5, pulse is 64, respirations 20, blood pressure 106/63, sats are 100%. HEENT: Unremarkable. NECK: Supple, no lymphadenopathy, no thyromegaly. LUNGS: Clear to auscultation and percussion. Good air entry. CARDIOVASCULAR: S1 and S2 heard. No gallop, no murmur, no rub. Apical impulse in left fifth intercostal space and midclavicular line. ABDOMEN: Soft and benign. No hepatosplenomegaly, no guarding, no rigidity. EXTREMITIES: Good pedal pulses. CENTRAL NERVOUS SYSTEM: Alert and oriented x 4, nonfocal exam. LABORATORY DATA: Significant for white count of 14.8. H and H is 7.4 and 23.1. ASSESSMENT AND PLAN: 1. Line sepsis. The patient has a Vas-Cath for 1 year. Cultures were ordered. The patient's also on vancomycin and Zosyn. Infectious Disease consult requested. 2. End-stage renal disease. Continue dialysis. Dr. Patel consulted. 3. Bipolar and schizophrenia. Continue Abilify daily and Depakote ER 500 mg daily. 4. Hypothyroidism. Continue levothyroxine 112 mcg p.o. daily. 5. Hypertension. Continue metoprolol 25 mg daily. 6. Deep venous thrombosis prophylaxis. The patient already on Coumadin. JOB# [id number] ROBERT/HERMANN SU
[2016-06-17] MEDS ORDERED: COUMADIN PO SCH (10:00)
[2016-06-17 10:34] LABS: Hematocrit 24.3 % (30.3-42.9); Hemoglobin 7.4 gm/dl (10.1-14.3); Mean Corpuscular HGB Conc 31 % (30-34); Mean Corpuscular Hemoglobin 41 pg (28-32); White Blood Count 13.9 K/mm3 (4.5-11.0)
[2016-06-17 10:35] LABS: Mean Corpuscular Volume 135 fl (79-97); Red Cell Distribution Width 20.4 % (13.2-15.2)
[2016-06-17 10:43] LABS: INR 1.4 (0.87-1.13)
[2016-06-17 10:53] LABS: Alanine Aminotransferase 476 units/L (7-56); Albumin 3.9 g/dL (3.9-5); Albumin/Globulin Ratio 1.4 %; Alkaline Phosphatase 209 units/L (35-129); Anion Gap 26 mmol/L; BUN/Creatinine Ratio 7.91; Bilirubin,Total 0.9 mg/dL (0.1-1.2); Blood Urea Nitrogen 38 mg/dL (7-17); Calcium 8.6 mg/dL (8.4-10.2); Carbon Dioxide 20 mmol/L (22-30); Chloride 93.4 mmol/L (98-107); Glucose 130 mg/dL (65-100); Potassium 4.2 mmol/L (3.6-5.0); Sodium 135 mmol/L (137-145); Total Protein 6.7 g/dL (6.3-8.2)
[2016-06-17] MEDS: COLACE PO SCH (11:04)
[2016-06-17] MEDS: REMERON PO SCH (11:04)
[2016-06-17] MEDS: ABILIFY PO SCH (11:04)
[2016-06-17] MEDS: DITROPAN PO SCH ×2 (11:04→23:04)
[2016-06-17] MEDS: PROzac PO SCH (11:08)
[2016-06-17] MEDS: LOPRESSOR PO SCH ×2 (11:09→23:05)
[2016-06-17 11:15] LABS: Anisocytosis 1+; Basophils % (Manual) 0 % (0.0-1.8); Blastocytes % (Manual) 0 %; Eosinophils % (Manual) 0 % (0.0-4.3); Macrocytosis 3+
[2016-06-17 11:16] LABS: Polychromasia Few; Tear Drop Cells Few
[2016-06-17 11:17] LABS: Diff Status Complete; Platelet Estimate Consistent w Auto
[2016-06-17] MEDS: HEPARIN SUB-Q SCH ×2 (11:20→23:06)
[2016-06-17 11:25] LABS: Platelet Count 108 K/mm3 (140-440)
[2016-06-17] MEDS ORDERED: ALBURX 25% (ALBUMIN) IV PRN (11:41)
[2016-06-17] MEDS ORDERED: NACL 0.9% 500 ML 500 ML IV NR (11:41)
[2016-06-17] MEDS ORDERED: NACL 0.9% 1000 ML 100 ML IV PRN (11:41)
--- NOTE | 2016-06-17 15:13 | Consultation ---
History of Present Illness - Reason for Consult Consult date: 06/17/16 vascath infection Requesting physician: DELGADO PRABHAKAR - History of Present Illness This is a 36 year old woman with ESRD on hemodialysis M/W/F, she has a right thigh permacath that was placed several months ago. She had a left femoral AV graft place on 06/08/[address] Costello. last week. Patient is a poor informant, the information she provided to me is different from the information she provided to the ER and admitting doctor. She does have a history of schizophrenia and bipolar. Patient informed me that she started to become lightheaded, weak and tired. She denied fevers and chills. She does complain of left thigh swelling and pain. She was admitted with the working diagnosis of sepsis related to the hemodialysis catheter. Wbc is 14 and liver function test is elevated. Past History Past Medical History: anemia, dialysis, hypertension, PVD, renal failure Past Surgical History: Other (dialysis access placement) Social history: denies: prescription drug abuse, IV drug use Family history: hypertension Medications and Allergies Allergies Allergy/AdvReac Type Severity Reaction Status Date / Time metformin AdvReac Intermediate Vomiting Verified 01/10/16 02:52 colchicine [From Colcrys] AdvReac Unknown Verified 01/10/16 02:52 quetiapine fumarate AdvReac HYPER Verified 01/10/16 02:52 [From Seroquel] Home Medications Medication Instructions Recorded Confirmed Last Taken Type ARIPiprazole [Abilify TAB] 15 mg PO DAILY 07/21/15 06/16/16 06/07/16 20:00 History Divalproex ER [Depakote ER] 500 mg PO QDAY 07/21/15 06/16/16 06/07/16 20:00 History Levothyroxine [Synthroid] 25 mcg PO QAM 07/21/15 06/16/16 06/08/16 08:30 History Oxybutynin [Ditropan] 5 mg PO BID 07/21/15 06/16/16 06/08/16 08:30 History Calcium Acetate 667 mg PO TID 11/01/15 06/16/16 06/07/16 20:00 History Docusate Sodium [Colace CAP] 1 tab PO DAILY 11/01/15 06/16/16 06/07/16 20:00 History FLUoxetine HCL [PROzac] 40 mg PO QDAY 11/01/15 06/16/16 06/07/16 20:00 History Esomeprazole Magnesium [NexIUM] 40 mg PO QDAY 11/16/15 06/16/16 06/08/16 08:30 History Mirtazapine 15 mg PO QDAY 11/16/15 06/16/16 06/07/16 20:00 History Dicyclomine [Bentyl] 10 mg PO TID PRN #15 capsule 01/12/16 06/16/16 06/07/16 20: 00 Rx ALBUTEROL Inhaler [ProAir HFA 2 puff IH QID PRN #1 inhalation 02/07/16 06/16/16 05/24/16 Rx Inhaler] Warfarin [Coumadin] 2.5 mg PO QDAY 06/07/16 06/16/16 06/06/16 History HYDROcodone/APAP 7.5-325 [[place] 1 each PO Q6HR PRN #60 tablet 06/08/16 06/16/16 Unknown Rx 7.5-325 mg TAB] Levofloxacin [Levaquin TAB] 250 mg PO Q48H #5 tablet 06/14/16 06/16/16 Unknown Rx Meclizine [Antivert] 12.5 mg PO DAILY PRN #30 tablet 06/14/16 06/16/16 Unknown Rx Metoprolol [Lopressor TAB] 12.5 mg PO BID #60 tablet 06/14/16 06/16/16 Unknown Rx Active Meds: Active Medications Acetaminophen (Tylenol) 650 mg PO Q4H PRN PRN Reason: Pain MILD(1-3)/Fever >100.5/POLK Acetaminophen/Hydrocodone Bitart ([place] 7.5/325) 1 each PO Q6HR PRN PRN Reason: Pain Albumin Human ([place] 25% (Albumin)) 25 gm IV ELENA PRN PRN Reason: Hypotension Albuterol (Proventil) 2.5 mg IH QIDRT [facility] Last Admin: 06/17/16 11:09 Dose: 2.5 mg Aripiprazole (Abilify) 15 mg PO DAILY [facility] Last Admin: 06/17/16 11:04 Dose: 15 mg Bisacodyl (Dulcolax) 10 mg [place] QDAY PRN PRN Reason: Constipation unrelieved by MOM Calcium Acetate (Phoslo) 667 mg PO TID [facility] Last Admin: 06/17/16 08:56 Dose: 667 mg Dicyclomine HCl (Bentyl) 10 mg PO TID PRN PRN Reason: Pain Divalproex Sodium (Depakote Er) 500 mg PO QDAY [facility] Last Admin: 06/17/16 11:33 Dose: 500 mg Docusate Sodium (Colace) 100 mg PO DAILY [facility] Last Admin: 06/17/16 11:04 Dose: 100 mg Epoetin García (Epogen) 20,000 unit IV ELENA PRN PRN Reason: hemodialysis Fluoxetine HCl (Prozac) 40 mg PO QDAY [facility] Last Admin: 06/17/16 11:08 Dose: 40 mg Heparin Sodium (Porcine) (Heparin) 5,000 unit SUB-Q Q12HR [facility] Last Admin: 06/17/16 11:20 Dose: 5,000 unit Sodium Chloride (Nacl 0.9% 500 Ml) 500 mls @ 0 mls/hr IV ONCE NR PRN Reason: As Directed Stop: 06/17/16 23:59 Sodium Chloride (Nacl 0.9% 1000 Ml) 100 mls @ 999 mls/hr IV ELENA PRN PRN Reason: Hypotension Levothyroxine Sodium (Synthroid) 25 mcg PO Q24H [facility] Last Admin: 06/17/16 06:04 Dose: 25 mcg Meclizine HCl (Antivert) 12.5 mg PO DAILY PRN PRN Reason: Vertigo Metoprolol Tartrate (Lopressor) 12.5 mg PO BID [facility] Last Admin: 06/17/16 11:09 Dose: Not Given Mirtazapine (Remeron) 15 mg PO QDAY [facility] Last Admin: 06/17/16 11:04 Dose: 15 mg Ondansetron HCl (Zofran) 4 mg IV Q8H PRN PRN Reason: N/V unrelieved by Reglan Oxybutynin Chloride (Ditropan) 5 mg PO BID [facility] Last Admin: 06/17/16 11:04 Dose: 5 mg Oxycodone/Acetaminophen (Percocet 5/325) 1 tab PO Q6H PRN PRN Reason: Pain, Moderate (4-6) Pantoprazole Sodium (Protonix) 40 mg PO QDAC [facility] Last Admin: 06/17/16 08:57 Dose: 40 mg Vancomycin HCl (Vancomycin Pharmacy To Dose) 1 each IV PKCONSULT [facility] PRN Reason: Protocol Warfarin Sodium (Coumadin) 2.5 mg PO DAILY@1700 [facility] Review of Systems ROS unobtainable: due to mental status (unreliable) Constitutional: fatigue, weakness, no weight loss, no weight gain, no fever, no chills, no sweats Ears, nose, mouth and throat: no ear pain, no tinnitis, no decreased hearing Breasts: deferred Cardiovascular: shortness of breath, no chest pain, no orthopnea, no palpitations Respiratory: no cough with sputum, no excessive sputum, no wheezing, no pleurisy Gastrointestinal: constipation, no nausea, no vomiting, no diarrhea Genitourinary Female: no pelvic pain, no flank pain, no difficulty voiding Rectal: no pain, no incontinence Musculoskeletal: no neck stiffness, no neck pain, no shooting arm pain, no morning stiffness Integumentary: no rash, no pruritis, no bullae Neurological: no head injury, no headaches, no migraines Psychiatric: no anxiety, no memory loss Physical Examination - Constitutional Vitals: Selected Entries 06/16/16 06/16/16 06/17/16 16:19 17:35 00:00 Temperature 97.9 F 97.6 F Pulse Rate [ Anterior Bilateral Throughout] Respiratory Rate [Anterior Bilateral Throughout] Blood Pressure 108/60 [Left] 06/17/16 06/17/16 08:00 11:20 Temperature 97.7 F Pulse Rate [ 95 H Anterior Bilateral Throughout] Respiratory 18 Rate [Anterior Bilateral Throughout] Blood Pressure [Left] General appearance: Present: no acute distress, well-nourished - EENT Eyes: Present: PERRL, EOM intact. Absent: scleral icterus, conjunctival injection ENT: hearing intact, clear oral mucosa, dentition normal - Neck Neck: Present: supple, normal ROM. Absent: enlarged thyroid, masses or JVD - Respiratory Respiratory: bilateral: CTA - Cardiovascular Rhythm: regular Heart Sounds: Present: S1 & S2 - Extremities Extremity abnormal: edema (left thigh), erythema, other (right thigh permacath) - Abdominal General gastrointestinal: Present: soft, non-tender, normal bowel sounds - Rectal Rectal Exam: deferred - Integumentary Integumentary: Present: clear, warm, dry Results - Labs CBC & Chem 7: 06/17/16 10:09 06/17/16 10:09 Labs: Microbiology 06/16/16 08:43 Peripheral/Venous Blood Culture - Preliminary NO GROWTH AFTER 24 HOURS 06/16/16 08:43 Peripheral/Venous Blood Culture - Preliminary NO GROWTH AFTER 24 HOURS Laboratory Tests 06/16/16 06/16/16 06/17/16 01:33 01:52 10:09 WBC 13.9 H Plt Count 125 L 108 L PT INR BUN Creatinine AST 809 H ALT Alkaline Phosphatase 06/17/16 06/17/16 10:09 10:09 WBC Plt Count PT 17.1 H INR 1.40 H BUN 38 H Creatinine 4.8 H D AST 902 H ALT 476 H Alkaline Phosphatase 209 H Assessment and Plan Antibiotics: 1) vancomycin (06/16 This is a 36 year old woman with ESRD on HD, schizophrenia, bipolar and a left femoral AV graft that was placed on 06/08/16 presenting here with weakness and lightheadedness. She was found to have leukocytosis and transaminitis with AST of 809, ALT 382. Previously she had normal liver function test dated 06/11/16. Chest xray without infiltrates. Concerned as well regarding left thigh AV graft swelling and tenderness 1) Possible permacath associated bloodstream infection, wbc is 14 but patient is afebrile. She reports that this permacath is several months old. Blood cultures pending 2) leukocytosis, unclear reason. source could be permacath vs AV graft surgical site 3) skin and soft tissue infection, the site around the AV graft is edematous with induration 4) Transaminitis, unclear source, rule out viral insult Plan: 1) continue vancomycin for now 2) add cefepime awaiting further culture data 3) would like vascular surgery to give their input on AV graft site. 4) obtain blood cultures from permacath 5) follow up blood cultures 6) obtain cmv antigenemia 7) ultrasound of left thigh
[2016-06-17] MEDS: MAXIPIME/NS 1 GM/100 ML 100 ML IV SCH (18:48)
[2016-06-18 05:27] LABS: Hematocrit 20.3 % (30.3-42.9); Hemoglobin 6.6 gm/dl (10.1-14.3); Mean Corpuscular HGB Conc 32 % (30-34); Mean Corpuscular Hemoglobin 42 pg (28-32); Red Blood Count 1.58 M/mm3 (3.65-5.03); Red Cell Distribution Width 19.5 % (13.2-15.2); White Blood Count 15.3 K/mm3 (4.5-11.0)
[2016-06-18 05:28] LABS: INR 1.75 (0.87-1.13)
[2016-06-18 05:47] LABS: BUN/Creatinine Ratio 8.1; Calcium 8.8 mg/dL (8.4-10.2); Chloride 92.6 mmol/L (98-107); Potassium 5.4 mmol/L (3.6-5.0)
[2016-06-18 05:49] LABS: Mean Corpuscular Volume 129 fl (79-97); Platelet Count 94 K/mm3 (140-440)
[2016-06-18] MEDS: SYNTHROID PO SCH (06:18)
--- NOTE | 2016-06-18 07:13 | Ultrasound Report ---
ULTRASOUND BLADDER RESIDUAL History: Renal failure. Findings: Transabdominal grayscale ultrasound images were obtained of the bladder. The bladder is collapsed and contains trace urine. Prevoid bladder volume measures 3 cc. Postvoid residual measures 3 cc. Impression: No urinary retention.
[2016-06-18] MEDS: PROVENTIL IH SCH ×4 (07:16→19:17)
[2016-06-18 07:40] LABS: Anisocytosis 1+; Basophils % (Manual) 0 % (0.0-1.8); Blastocytes % (Manual) 0 %; Eosinophils % (Manual) 0 % (0.0-4.3)
[2016-06-18 07:41] LABS: Polychromasia Few; Tear Drop Cells Few
[2016-06-18 07:42] LABS: Macrocytosis 2+
[2016-06-18 07:43] LABS: Diff Status Complete; Platelet Estimate Consistent w Auto
--- NOTE | 2016-06-18 08:09 | Vascular Lab Report ---
Left Lower Extremity Venous Duplex Study: Reason for Exam: Pain and swelling of the left lower extremity. Comments on the Right: A limited duplex study was done of the proximal veins of the right lower extremity. All veins visualized are freely compressible without evidence of internal echogenicity. Flow is spontaneous and phasic throughout. No evidence of acute or chronic thrombus is seen in any of the vessels visualized. Comments on the Left: All veins visualized are freely compressible without evidence of internal echogenicity. Flow is spontaneous and phasic throughout. No evidence of acute or chronic thrombus is seen in any of the vessels visualized. Patent left thigh AV dialysis graft Impression: No evidence of acute or chronic deep venous thrombosis in the left lower extremity.
[2016-06-18] MEDS: PHOSLO PO SCH ×4 (09:36→21:47)
--- NOTE | 2016-06-18 09:49 | Progress Note ---
Assessment and Plan Antibiotics: 1) vancomycin (06/16 2) cefepime 1gm iv Qdaily (06/17 This is a 36 year old woman with ESRD on HD, schizophrenia, bipolar and a left femoral AV graft that was placed on 06/08/16 presenting here with weakness and lightheadedness. She was found to have leukocytosis and transaminitis with AST of 809, ALT 382. Previously she had normal liver function test dated 06/11/16. Chest xray without infiltrates. Concerned as well regarding left thigh AV graft swelling and tenderness 1) Possible permacath associated bloodstream infection, leukocytosis persist but patient is afebrile. She reports that this permacath is several months old. Blood cultures negative so far. Will have blood cultures done directly from the permacath. 2) leukocytosis, unclear reason. source could be permacath vs AV graft surgical site. Patient is complaining of pain at the AV graft site 3) skin and soft tissue infection, the site around the AV graft is edematous with induration 4) Transaminitis, unclear source, rule out viral insult, doubt viral hepatitis, numbers should be much higher Plan: 1) continue vancomycin for now 2) continue cefepime awaiting further culture data 3) would like vascular surgery to give their input on AV graft site. 4) obtain blood cultures from permacath 5) follow up blood cultures 6) obtain cmv antigenemia 7) follow up ultrasound of left thigh 8) repeat liver function test Subjective Date of service: 06/18/16 Interval history: Patient seen at hemodialysis, she said she is not urinating and is concerned Objective - Constitutional Vitals: Selected Entries 06/17/16 06/18/16 06/18/16 15:44 00:00 07:33 Temperature 98.0 F 97.5 F L Pulse Rate [ 77 Anterior Bilateral Throughout] Respiratory 20 Rate [Anterior Bilateral Throughout] Blood Pressure 110/62 [Left Arm] Blood Pressure 78 Mean [Left Arm] General appearance: Present: no acute distress, well-nourished - EENT Eyes: PERRL, EOM intact, no scleral icterus, no conjunctival injection ENT: hearing intact, clear oral mucosa Ears: bilateral: normal - Neck Neck: supple, normal ROM, no enlarged thyroid, no masses or JVD - Respiratory Respiratory effort: normal Respiratory: bilateral: CTA - Breasts Breasts: deferred - Cardiovascular Rhythm: regular Heart Sounds: Present: S1 & S2 Extremities: Full ROM, abnormal Extremity abnormal: edema (left thigh) - Gastrointestinal General gastrointestinal: Present: soft, non-tender, normal bowel sounds - Genitourinary Female genitourinary: deferred - Integumentary Integumentary: clear, warm, no jaundice, no rash - Musculoskeletal Musculoskeletal: strength equal bilaterally - Labs CBC & Chem 7: 06/18/16 04:35 06/18/16 04:35 Labs: Microbiology 06/16/16 08:43 Peripheral/Venous Blood Culture - Preliminary NO GROWTH AFTER 24 HOURS 06/16/16 08:43 Peripheral/Venous Blood Culture - Preliminary NO GROWTH AFTER 24 HOURS Laboratory Tests 06/18/16 06/18/16 04:35 04:35 WBC 15.3 H BUN 47 H Creatinine 5.8 H
--- NOTE | 2016-06-18 10:10 | Progress Note ---
Assessment and Plan End-stage renal disease patient is currently on maintenance hemodialysis on Saturday current dialysis access is a central venous catheter, patient has issues with vascular access and cuently her AV graft is not matured Patient also has had fever for which blood cultures have been drawn infection disease is following Anemia and GI bleeding pending packed red blood cell transfusion patient should be seen and followed by gastroenterology service patient may benefit from a surgical evaluation as a hemorrhoid off and on does bleed and she does become severely anemic Thrombocytopenia needs to be monitored closely and has a declining trend and needs to be seen by glaze carrier Nutrition oliveira she should be on dialysis diet which is usually high protein blood culture is currently negative so far patient seems to be tolerating dialysis treatment wll Subjective Interval history: patient was seen for follow-up of multiple renal related issues today Events of this hospitalization where noted Patient is currently also on maintenance hemodialysis and was also seen and supervised on hemodialysis in addition to several of the renal related issues her current access is a functioning central venous catheter graft is currently not matured Objective - Vital Signs Vital signs: Vital Signs - 12hr 06/18/16 06/18/16 06/18/16 00:00 07:15 07:33 Temperature 97.5 F L Pulse Rate [ 79 77 Anterior Bilateral Throughout] Pulse Rate [ 105 H Apical] Respiratory 18 Rate Respiratory 20 20 Rate [Anterior Bilateral Throughout] Blood Pressure 110/62 [Left Arm] O2 Sat by Pulse 96 Oximetry 06/18/16 06/18/16 08:00 09:41 Temperature 97.8 F Pulse Rate [ Anterior Bilateral Throughout] Pulse Rate [ 80 Apical] Respiratory 18 Rate Respiratory Rate [Anterior Bilateral Throughout] Blood Pressure 114/59 [Left Arm] O2 Sat by Pulse 95 97 Oximetry - General Appearance General appearance: well-nourished EENT: mucous membranes moist Neck: no JVD Respiratory: Present: Clear to Ascultation (No crackles rales or wheezes) Cardiology: regular (regular rate rhythm S1-S2 heard) Gastrointestinal: normal (abdomen is soft nontender) Integumentary: no rash (1+ edema) Musculoskeletal: other (graft appears to have good thrill and bruit) - Lab 06/19/16 09:49 06/19/16 09:49 Most recent lab results Calcium 8.8 mg/dL (8.4-10.2) 06/18/16 04:35 Magnesium 1.5 mg/dL (1.7-2.3) L 06/16/16 08:43
[2016-06-18] MEDS: HEPARIN IV PRN (13:17)
[2016-06-18] MEDS ORDERED: NACL 0.9 (PRIMING MACHINE ONLY DIALYSIS) MC ONE ×2 (13:50→13:52)
--- NOTE | 2016-06-18 14:23 | Progress Note ---
Assessment and Plan Assessment and plan: Patient is a 36 year old woman with ESRD on HD, schizophrenia, bipolar and a left femoral AV graft that was placed on 06/08/16 presenting here with weakness and lightheadedness. She was found to have leukocytosis and transaminitis with AST of 809, ALT 382. Previously she had normal liver function test dated . Chest xray without infiltrates. She is also complaining the past of having anemia with rectal bleeding although she states she started to have rectal bleeding. Today she reports abdominal pain generalized and states that she stumbled her bowel and she is dizzy on standing up. - Patient Problems (1) Abdominal pain Current Visit: Yes Status: Acute Plan to address problem: Etiologic varies. Patient does have elevated LFTs which ultrasound of the abdomen to rule out other pathology. We'll also start patient on stool softeners considered possible constipation. Acute pathology at this point noted. (2) Symptomatic anemia Current Visit: Yes Status: Acute Plan to address problem: Patient with history of rectal bleed in the past and states that she has had GI workup that was negative. Question hemorrhoids. Patient is receiving blood at this time will recheck hemoglobin in a.m. Avoid antiplatelets. (3) Line sepsis associated with dialysis catheter Current Visit: Yes Status: Acute Plan to address problem: Continue antibiotics. Will monitor liver function tests. Infectious diseases input appreciated. Cultures this point no growth. Awaiting for cultures from the dialysis catheter.Currently on vancomycin and cefepime (4) End-stage renal disease needing dialysis Current Visit: Yes Status: Chronic Plan to address problem: Police [employer] Dispatcher following. Dialysis as recommended. (5) Transaminitis Current Visit: Yes Status: Acute Plan to address problem: Question drug-induced. We'll check a hepatitis profile. We'll obtain ultrasound of the abdomen. History Interval history: Patient seen and examined this morning reports abdominal pain generalized, dizziness, nausea with no associated vomiting. Denies any chest pain, diarrhea No fever noted blood pressure controlled No adverse events reported to me by nursing staff Hospitalist Physical - Physical exam Narrative exam: VITAL SIGNS: Reviewed. GENERAL: The patient appeared well nourished and normally developed. Vital signs as documented. HEAD: No signs of head trauma. EYES: Pupils are equal. Extraocular motions intact. EARS: Hearing grossly intact. MOUTH: Oropharynx is normal. NECK: No adenopathy, no JVD. CHEST: Chest with clear breath sounds bilaterally. No wheezes, rales, or rhonchi. CARDIAC: Regular rate and rhythm. S1 and S2, without murmurs, gallops, or rubs. VASCULAR: No Edema. Peripheral pulses normal and equal in all extremities. ABDOMEN: Soft, mild tenderness generalized. No sign of distention. No rebound or guarding, and no masses palpated. Bowel Sounds normal. MUSCULOSKELETAL: Good range of motion of all major joints. Extremities without clubbing, cyanosis or edema. NEUROLOGIC EXAM: Alert and oriented x 3. No focal sensory or strength deficits. Speech normal. Follows commands. PSYCHIATRIC: Mood normal. SKIN: pale. - Constitutional Vitals: Temp Pulse Resp BP Pulse Ox 97.7 F 91 H 18 107/62 97 06/18/16 12:15 06/18/16 12:45 06/18/16 12:15 06/18/16 12:45 06/18/16 09:41 General appearance: Present: no acute distress, well-nourished Results - Labs CBC & Chem 7: 06/18/16 04:35 06/18/16 04:35 Labs: Laboratory Last Values WBC 15.3 K/mm3 (4.5-11.0) H 06/18/16 04:35 RBC 1.58 M/mm3 (3.65-5.03) L 06/18/16 04:35 Hgb 6.6 gm/dl (10.1-14.3) L 06/18/16 04:35 Hct 20.3 % (30.3-42.9) L 06/18/16 04:35 MCV 129 fl (79-97) H D 06/18/16 04:35 MCH 42 pg (28-32) H 06/18/16 04:35 MCHC 32 % (30-34) 06/18/16 04:35 RDW 19.5 % (13.2-15.2) H 06/18/16 04:35 Plt Count 94 K/mm3 (140-440) L 06/18/16 04:35 Add Manual Diff Complete 06/18/16 04:35 Total Counted 100 06/18/16 04:35 Seg Neuts % (Manual) 70.0 % (40.0-70.0) 06/18/16 04:35 Band Neutrophils % 1.0 % 06/18/16 04:35 Lymphocytes % (Manual) 20.0 % (13.4-35.0) 06/18/16 04:35 Reactive Lymphs % (Man) 0 % 06/18/16 04:35 Monocytes % (Manual) 8.0 % (0.0-7.3) H 06/18/16 04:35 Eosinophils % (Manual) 0 % (0.0-4.3) 06/18/16 04:35 Basophils % (Manual) 0 % (0.0-1.8) 06/18/16 04:35 Metamyelocytes % 0 % 06/18/16 04:35 Myelocytes % 1.0 % 06/18/16 04:35 Promyelocytes % 0 % 06/18/16 04:35 Blast Cells % 0 % 06/18/16 04:35 Nucleated RBC % 5.0 % (0.0-0.9) H 06/18/16 04:35 Seg Neutrophils # Man 10.7 K/mm3 (1.8-7.7) H 06/18/16 04:35 Band Neutrophils # 0.2 K/mm3 06/18/16 04:35 Lymphocytes # (Manual) 3.1 K/mm3 (1.2-5.4) 06/18/16 04:35 Abs React Lymphs (Man) 0.0 K/mm3 06/18/16 04:35 Monocytes # (Manual) 1.2 K/mm3 (0.0-0.8) H 06/18/16 04:35 Eosinophils # (Manual) 0.0 K/mm3 (0.0-0.4) 06/18/16 04:35 Basophils # (Manual) 0.0 K/mm3 (0.0-0.1) 06/18/16 04:35 Metamyelocytes # 0.0 K/mm3 06/18/16 04:35 Myelocytes # 0.2 K/mm3 06/18/16 04:35 Promyelocytes # 0.0 K/mm3 06/18/16 04:35 Blast Cells # 0.0 K/mm3 06/18/16 04:35 WBC Morphology Not Reportable 06/18/16 04:35 Hypersegmented Neuts Not Reportable 06/18/16 04:35 Hyposegmented Neuts Not Reportable 06/18/16 04:35 Hypogranular Neuts Not Reportable 06/18/16 04:35 Smudge Cells Not Reportable 06/18/16 04:35 Toxic Granulation Not Reportable 06/18/16 04:35 Toxic Vacuolation Not Reportable 06/18/16 04:35 Dohle Bodies Not Reportable 06/18/16 04:35 Pelger-Huet Anomaly Not Reportable 06/18/16 04:35 Le Rods Not Reportable 06/18/16 04:35 Platelet Estimate Consistent w auto 06/18/16 04:35 Clumped Platelets Not Reportable 06/18/16 04:35 Plt Clumps, EDTA Not Reportable 06/18/16 04:35 Large Platelets Not Reportable 06/18/16 04:35 Giant Platelets Not Reportable 06/18/16 04:35 Platelet Satelliting Not Reportable 06/18/16 04:35 Plt Morphology Comment Not Reportable 06/18/16 04:35 RBC Morphology Not Reportable 06/18/16 04:35 Dimorphic RBCs Not Reportable 06/18/16 04:35 Polychromasia Few 06/18/16 04:35 Hypochromasia Not Reportable 06/18/16 04:35 Poikilocytosis Not Reportable 06/18/16 04:35 Anisocytosis 1+ 06/18/16 04:35 Microcytosis Not Reportable 06/18/16 04:35 Macrocytosis 2+ 06/18/16 04:35 Spherocytes Not Reportable 06/18/16 04:35 Pappenheimer Bodies Not Reportable 06/18/16 04:35 Sickle Cells Not Reportable 06/18/16 04:35 Target Cells Not Reportable 06/18/16 04:35 Tear Drop Cells Few 06/18/16 04:35 Ovalocytes Not Reportable 06/18/16 04:35 Stomatocytes 1+ 06/16/16 01:52 Helmet Cells Not Reportable 06/18/16 04:35 Kwong-Depew Bodies Not Reportable 06/18/16 04:35 Mode Rings Not Reportable 06/18/16 04:35 Woody Cells Not Reportable 06/18/16 04:35 Bite Cells Not Reportable 06/18/16 04:35 Crenated Cell Not Reportable 06/18/16 04:35 Elliptocytes Not Reportable 06/18/16 04:35 Acanthocytes (Spur) Not Reportable 06/18/16 04:35 Rouleaux Not Reportable 06/18/16 04:35 Hemoglobin C Crystals Not Reportable 06/18/16 04:35 Schistocytes Not Reportable 06/18/16 04:35 Malaria parasites Not Reportable 06/18/16 04:35 Abdiel Bodies Not Reportable 06/18/16 04:35 Hem Pathologist Commnt No 06/18/16 04:35 PT 20.4 Sec. (12.2-14.9) H 06/18/16 04:35 INR 1.75 (0.87-1.13) H 06/18/16 04:35 APTT 27.5 Sec. (24.2-36.6) 06/16/16 08:43 Sodium 135 mmol/L (137-145) L 06/18/16 04:35 Potassium 5.4 mmol/L (3.6-5.0) H D 06/18/16 04:35 Chloride 92.6 mmol/L (98-107) L 06/18/16 04:35 Carbon Dioxide 22 mmol/L (22-30) 06/18/16 04:35 Anion Gap 26 mmol/L 06/18/16 04:35 BUN 47 mg/dL (7-17) H 06/18/16 04:35 Creatinine 5.8 mg/dL (0.7-1.2) H 06/18/16 04:35 Estimated GFR 8 ml/min 06/18/16 04:35 BUN/Creatinine Ratio 8.10 % 06/18/16 04:35 Glucose 85 mg/dL (65-100) 06/18/16 04:35 POC Glucose 86 (70-105) 06/18/16 06:36 Lactic Acid 1.7 mmol/L (0.7-2.0) 06/16/16 12:17 Calcium 8.8 mg/dL (8.4-10.2) 06/18/16 04:35 Magnesium 1.5 mg/dL (1.7-2.3) L 06/16/16 08:43 Total Bilirubin 0.9 mg/dL (0.1-1.2) 06/17/16 10:09 AST 902 units/L (5-40) H 06/17/16 10:09 ALT 476 units/L (7-56) H 06/17/16 10:09 Alkaline Phosphatase 209 units/L (35-129) H 06/17/16 10:09 Ammonia 55.0 umol/L (25-60) 06/16/16 08:43 Total Creatine Kinase 33 units/L (30-135) 06/16/16 08:43 CK-MB (CK-2) 1.4 ng/mL (0.0-4.0) 06/16/16 08:43 CK-MB (CK-2) Rel Index 4.2 (0-4) H 06/16/16 08:43 Troponin T < 0.010 ng/mL (0.00-0.029) 06/16/16 08:43 NT-Pro-B Natriuret Pep 2973 pg/mL (0-450) H 06/16/16 08:43 Total Protein 6.7 g/dL (6.3-8.2) 06/17/16 10:09 Albumin 3.9 g/dL (3.9-5) 06/17/16 10:09 Albumin/Globulin Ratio 1.4 % 06/17/16 10:09 Blood Type O POSITIVE 06/16/16 12:17 Antibody Screen Negative 06/16/16 12:17 Crossmatch See Detail 06/16/16 12:17 Microbiology 06/16/16 08:43 Peripheral/Venous Blood Culture - Preliminary NO GROWTH AFTER 24 HOURS 06/16/16 08:43 Peripheral/Venous Blood Culture - Preliminary NO GROWTH AFTER 24 HOURS - Imaging and Cardiology US - abdomen: pending
[2016-06-18] MEDS ORDERED: CEPHULAC PO ONE (14:27)
[2016-06-18] MEDS ORDERED: VANCOMYCIN/NS 1 GM/250 ML 250 ML IV ONE (18:00)
[2016-06-18] MEDS: COLACE PO SCH (18:10)
[2016-06-18] MEDS: PROzac PO SCH (18:11)
[2016-06-18] MEDS: COUMADIN PO SCH (18:11)
[2016-06-18] MEDS: HEPARIN SUB-Q SCH ×2 (18:12→21:49)
[2016-06-18] MEDS: DITROPAN PO SCH ×2 (18:12→21:47)
[2016-06-18] MEDS: REMERON PO SCH (18:13)
[2016-06-18] MEDS: LOPRESSOR PO SCH ×2 (18:14→21:48)
[2016-06-18] MEDS: MAXIPIME/NS 1 GM/100 ML 100 ML IV SCH (18:21)
[2016-06-18] MEDS: ABILIFY PO SCH (18:21)
[2016-06-18] MEDS: PROTONIX PO SCH (18:30)
[2016-06-19] MEDS: SYNTHROID PO SCH (05:21)
--- NOTE | 2016-06-19 07:15 | Ultrasound Report ---
ULTRASOUND EXTREMITY NONVASCULAR LEFT: HISTORY: Left thigh swelling at the site of a new AV graft. FINDINGS: Targeted dennis scale ultrasound images were obtained in the left groin and upper left thigh at the site of swelling. There is nonspecific subcutaneous edema throughout the upper left thigh. There is a relatively anechoic cystic collection in the left groin area measuring up to 4.9 x 4.5 x 6.6 cm. This is near an incision site per the technologist. Color Doppler interrogation demonstrates a focal perfusion along the medial margin of this collection which presumably represents the AV graft. No to-and-fro pattern on color Doppler is identified to support a pseudoaneurysm. IMPRESSION: Cystic collection in the left groin region, as outlined above, which appears to be adjacent to the AV graft. This may represent a hematoma, leakage or possibly a pseudoaneurysm. Please correlate with the patient and consider further imaging with CT with contrast.
--- NOTE | 2016-06-19 07:55 | Ultrasound Report ---
ULTRASOUND ABDOMEN COMPLETE: Technique: Transabdominal ultrasound with color Doppler interrogation. History: Abdominal pain, elevated liver function tests. Findings: The liver is normal size, contour and echotexture. The gallbladder dimensions are within normal limits without intraluminal stone, wall thickening, or pericholecystic fluid. There is a small amount of sludge in the gallbladder neck. The CBD is normal caliber. The visualized portions of the pancreas including the head and proximal body are within normal limits. Both kidneys are atrophic with cortical thinning and increased echo texture. The right kidney measures 6.7 cm. The left kidney measures 6.6 cm. No focal lesion or hydronephrosis. The spleen and aorta are within normal limits. No aneurysmal dilatation is noted. No ascites. The bladder is unremarkable. There is an echogenic structure within the visualized portions of the IVC. Correlation with recent chest x-ray demonstrates a vascular catheter which extends through the IVC to terminate in the right atrium. This echogenic structure presumably represents a catheter which appears to have some clot or fibrin sheath surrounding its distal portions. This does not obstruct the IVC. IMPRESSION: Trace sludge in the gallbladder. Chronic renal parenchymal disease. There appears to be a catheter in the IVC with associated adherent thrombus or fibrin sheath. Consider further evaluation with CT abdomen and pelvis with IV contrast if further evaluation is needed.
[2016-06-19] MEDS: PROVENTIL IH SCH ×4 (07:56→20:05)
[2016-06-19] MEDS: ABILIFY PO SCH (09:19)
[2016-06-19] MEDS: COLACE PO SCH (09:19)
[2016-06-19] MEDS: PROTONIX PO SCH (09:19)
[2016-06-19] MEDS: REMERON PO SCH (09:19)
[2016-06-19] MEDS: DITROPAN PO SCH ×2 (09:19→21:45)
[2016-06-19] MEDS: PROzac PO SCH (09:19)
[2016-06-19] MEDS: LOPRESSOR PO SCH ×2 (09:22→21:45)
[2016-06-19] MEDS: HEPARIN SUB-Q SCH ×2 (09:22→21:46)
--- NOTE | 2016-06-19 09:45 | Progress Note ---
Assessment and Plan End-stage renal disease;patient is currently on maintenance hemodialysis on Saturday which she seems to be tolerating well Dialysis access; currently a central venous catheter patient has poor vasculature her AV graft is not matured fever blood cultures have been drawn infectious disease following currently an antibiotic thrombocytopenia could also be due to Maxipime Off and on she becomes anemic has thrombocytopenia I believe she will benefit from a hematology evaluation Given the history of hemorrhoids that bleed off and on patient will benefit from a surgical intervention likely in my opinion please consider consultation dyspnea avoid further hospitalization due to anemia and recurrent bleeding Patient needs to be in high-protein diet due to dialysis status Need to check phosphorus PTH periodically We'll continue to follow make recommendation from renal standpoint Subjective Interval history: patient was seen today for follow-up on multiple renal related issues. Last dialysis was tolerated very well Events of 24 hours were noted current hemoglobin is around 8's Patient denies any complaints of chest pain pressure or shortness of breath Periodically she does have history of hemorrhoidal bleeding she lives in a personal skilled nursing Objective - Vital Signs Vital signs: Vital Signs - 12hr 06/19/16 06/19/16 06/19/16 00:00 07:59 08:08 Temperature 98.3 F Pulse Rate [ 77 78 Anterior Bilateral Throughout] Pulse Rate [ 100 H Left Radial] Respiratory 18 Rate Respiratory 18 18 Rate [Anterior Bilateral Throughout] Blood Pressure 108/57 [Left Arm] O2 Sat by Pulse 94 Oximetry - General Appearance General appearance: appears stated age EENT: mucous membranes moist (pallor present) Neck: no JVD Respiratory: Present: Clear to Ascultation (no crackles or also wheezes) Cardiology: regular (S1-S2 normal) Gastrointestinal: normal (soft nontender abdomen) - Lab 06/19/16 09:49 06/19/16 09:49 Most recent lab results Calcium 8.8 mg/dL (8.4-10.2) 06/18/16 04:35 Magnesium 1.5 mg/dL (1.7-2.3) L 06/16/16 08:43
[2016-06-19 10:02] LABS: Hematocrit 25.3 % (30.3-42.9); Hemoglobin 8.3 gm/dl (10.1-14.3); Mean Corpuscular HGB Conc 33 % (30-34); Mean Corpuscular Hemoglobin 39 pg (28-32); Red Blood Count 2.14 M/mm3 (3.65-5.03)
[2016-06-19 10:18] LABS: Albumin 3.8 g/dL (3.9-5); Albumin/Globulin Ratio 1.9 %; BUN/Creatinine Ratio 7.07; Bilirubin,Total 1.2 mg/dL (0.1-1.2); Calcium 8.3 mg/dL (8.4-10.2); Chloride 93.9 mmol/L (98-107); Potassium 3.9 mmol/L (3.6-5.0); Total Protein 5.8 g/dL (6.3-8.2)
[2016-06-19 10:21] LABS: INR 1.7 (0.87-1.13); Mean Corpuscular Volume 118 fl (79-97); Platelet Count 80 K/mm3 (140-440); Red Cell Distribution Width 30.8 % (13.2-15.2)
[2016-06-19] MEDS: PHOSLO PO SCH ×3 (10:44→16:47)
[2016-06-19] MEDS: MAXIPIME/NS 1 GM/100 ML 100 ML IV SCH (10:44)
--- NOTE | 2016-06-19 11:33 | Progress Note ---
Assessment and Plan Antibiotics: 1) vancomycin (06/16 2) cefepime 1gm iv Qdaily (06/17 This is a 36 year old woman with ESRD on HD, schizophrenia, bipolar and a left femoral AV graft that was placed on 06/08/16 presenting here with weakness and lightheadedness. She was found to have leukocytosis and transaminitis with AST of 809, ALT 382. Previously she had normal liver function test dated 06/11/16. Chest xray without infiltrates. Concerned as well regarding left thigh AV graft swelling and tenderness 1) Possible permacath associated bloodstream infection, leukocytosis persist but patient is afebrile. She reports that this permacath is several months old. Blood cultures negative so far. Will have blood cultures done directly from the permacath. --all blood cultures negative, doubt permacath associated infection 2) leukocytosis, unclear reason. source could be permacath vs AV graft surgical site. Patient is complaining of pain at the AV graft site --down to 13, unclear reason 3) skin and soft tissue infection, the site around the AV graft is edematous with induration --ultrasound of soft tissue revealed 3.9 x 4.5 x 6.6cm cystic collection next to the AV graft, possible hematoma 4) Transaminitis, unclear source, rule out viral insult, doubt viral hepatitis, numbers should be much higher --await cmv --hepatitis panel pending. --will obtain ct scan of abdomen 5) thrombocytopenia, down to 80, unclear reason. if it continue to decrease will have to consider medication related Plan: 1) continue vancomycin for now 2) continue cefepime awaiting further culture data 3) would like vascular surgery to give their input on AV graft site. 4) follow up blood cultures 6) follow up cmv antigenemia 7) monitor liver function test 8) follow up viral hepatitis panel Subjective Date of service: 06/19/16 Interval history: Patient continues to complain of left thigh pain and abdominal pain. Objective - Constitutional Vitals: Selected Entries 06/19/16 08:15 Temperature 98.1 F Pulse Rate [ 74 Apical] Respiratory 16 Rate O2 Sat by Pulse 94 Oximetry Blood Pressure 110/62 [Left Arm] Blood Pressure 78 Mean [Left Arm] General appearance: Present: no acute distress, well-nourished - EENT Eyes: PERRL, EOM intact, no scleral icterus, no conjunctival injection ENT: hearing intact, clear oral mucosa, no oropharyngeal erythema - Neck Neck: supple, normal ROM, no enlarged thyroid, no masses or JVD - Respiratory Respiratory: bilateral: CTA - Breasts Breasts: deferred - Cardiovascular Rhythm: regular Heart Sounds: Present: S1 & S2 Extremities: abnormal (left thigh tenderness and erythema) Extremity abnormal: edema (left thigh) - Gastrointestinal General gastrointestinal: Present: soft, tender, normal bowel sounds - Genitourinary Female genitourinary: deferred - Integumentary Integumentary: clear, warm, dry, no jaundice, no rash - Psychiatric Psychiatric: appropriate mood/affect, cooperative - Labs CBC & Chem 7: 06/19/16 09:49 06/19/16 09:49 Labs: Microbiology 06/19/16 00:13 Femoral Line Blood Culture - Preliminary Culture in Progress 06/18/16 16:48 Peripheral/Venous Blood Culture - Preliminary Culture in Progress 06/16/16 08:43 Peripheral/Venous Blood Culture - Preliminary NO GROWTH AFTER 48 HOURS 06/16/16 08:43 Peripheral/Venous Blood Culture - Preliminary NO GROWTH AFTER 48 HOURS Laboratory Tests 06/18/16 06/19/16 06/19/16 16:48 09:49 09:49 WBC 13.0 H Plt Count 80 L BUN 29 H Creatinine 4.1 H BUN/Creatinine Ratio 7.07 Hepatitis A IgM Ab -1 Hep Bs Antigen Non-reactive Hep B Core IgM Ab Non-reactive Hepatitis C Antibody Non-reactive
[2016-06-19] MEDS: COUMADIN PO SCH (16:46)
--- NOTE | 2016-06-19 17:18 | Progress Note ---
Assessment and Plan - Patient Problems (1) Line sepsis associated with dialysis catheter Current Visit: Yes Status: Acute Plan to address problem: IV abx, supportive care, continue current abx therapy until leukocytosis resolves. ID consulted (2) Abdominal pain Current Visit: Yes Status: Resolved Plan to address problem: r (3) Symptomatic anemia Current Visit: Yes Status: Chronic Plan to address problem: Hgb currently stable, continue current care, (4) Transaminitis Current Visit: Yes Status: Acute (5) End-stage renal disease needing dialysis Current Visit: Yes Status: Chronic Plan to address problem: Nephrology consulted, dialysis as per renal team. (6) Seizure disorder Current Visit: No Status: Chronic Plan to address problem: continue current therapy (7) DVT prophylaxis Current Visit: No Status: Acute History Interval history: Pt resting in bed, Pt denies pain, No reported nursing events. D/C planning in AM. Hospitalist Physical - Constitutional Vitals: Temp Pulse Resp BP Pulse Ox 97.9 F 73 16 104/74 97 06/19/16 14:30 06/19/16 15:51 06/19/16 15:51 06/19/16 14:30 06/19/16 14:30 General appearance: Present: no acute distress, well-nourished - EENT Eyes: Present: PERRL ENT: hearing intact - Neck Neck: Present: supple - Respiratory Respiratory: bilateral: CTA - Cardiovascular Rhythm: regular Heart Sounds: Present: S1 & S2 - Extremities Extremities: no ischemia Extremity abnormal: edema Peripheral Pulses: within normal limits - Abdominal General gastrointestinal: soft, non-distended - Integumentary Integumentary: Present: clear, dry - Psychiatric Psychiatric: cooperative - Neurologic Neurologic: CNII-XII intact Results - Labs CBC & Chem 7: 06/19/16 09:49 06/19/16 09:49 Labs: Laboratory Last Values WBC 13.0 K/mm3 (4.5-11.0) H 06/19/16 09:49 RBC 2.14 M/mm3 (3.65-5.03) L 06/19/16 09:49 Hgb 8.3 gm/dl (10.1-14.3) L 06/19/16 09:49 Hct 25.3 % (30.3-42.9) L 06/19/16 09:49 MCV 118 fl (79-97) H D 06/19/16 09:49 MCH 39 pg (28-32) H 06/19/16 09:49 MCHC 33 % (30-34) 06/19/16 09:49 RDW 30.8 % (13.2-15.2) H 06/19/16 09:49 Plt Count 80 K/mm3 (140-440) L 06/19/16 09:49 Add Manual Diff Complete 06/18/16 04:35 Total Counted 100 06/18/16 04:35 Seg Neuts % (Manual) 70.0 % (40.0-70.0) 06/18/16 04:35 Band Neutrophils % 1.0 % 06/18/16 04:35 Lymphocytes % (Manual) 20.0 % (13.4-35.0) 06/18/16 04:35 Reactive Lymphs % (Man) 0 % 06/18/16 04:35 Monocytes % (Manual) 8.0 % (0.0-7.3) H 06/18/16 04:35 Eosinophils % (Manual) 0 % (0.0-4.3) 06/18/16 04:35 Basophils % (Manual) 0 % (0.0-1.8) 06/18/16 04:35 Metamyelocytes % 0 % 06/18/16 04:35 Myelocytes % 1.0 % 06/18/16 04:35 Promyelocytes % 0 % 06/18/16 04:35 Blast Cells % 0 % 06/18/16 04:35 Nucleated RBC % 5.0 % (0.0-0.9) H 06/18/16 04:35 Seg Neutrophils # Man 10.7 K/mm3 (1.8-7.7) H 06/18/16 04:35 Band Neutrophils # 0.2 K/mm3 06/18/16 04:35 Lymphocytes # (Manual) 3.1 K/mm3 (1.2-5.4) 06/18/16 04:35 Abs React Lymphs (Man) 0.0 K/mm3 06/18/16 04:35 Monocytes # (Manual) 1.2 K/mm3 (0.0-0.8) H 06/18/16 04:35 Eosinophils # (Manual) 0.0 K/mm3 (0.0-0.4) 06/18/16 04:35 Basophils # (Manual) 0.0 K/mm3 (0.0-0.1) 06/18/16 04:35 Metamyelocytes # 0.0 K/mm3 06/18/16 04:35 Myelocytes # 0.2 K/mm3 06/18/16 04:35 Promyelocytes # 0.0 K/mm3 06/18/16 04:35 Blast Cells # 0.0 K/mm3 06/18/16 04:35 WBC Morphology Not Reportable 06/18/16 04:35 Hypersegmented Neuts Not Reportable 06/18/16 04:35 Hyposegmented Neuts Not Reportable 06/18/16 04:35 Hypogranular Neuts Not Reportable 06/18/16 04:35 Smudge Cells Not Reportable 06/18/16 04:35 Toxic Granulation Not Reportable 06/18/16 04:35 Toxic Vacuolation Not Reportable 06/18/16 04:35 Dohle Bodies Not Reportable 06/18/16 04:35 Pelger-Huet Anomaly Not Reportable 06/18/16 04:35 Le Rods Not Reportable 06/18/16 04:35 Platelet Estimate Consistent w auto 06/18/16 04:35 Clumped Platelets Not Reportable 06/18/16 04:35 Plt Clumps, EDTA Not Reportable 06/18/16 04:35 Large Platelets Not Reportable 06/18/16 04:35 Giant Platelets Not Reportable 06/18/16 04:35 Platelet Satelliting Not Reportable 06/18/16 04:35 Plt Morphology Comment Not Reportable 06/18/16 04:35 RBC Morphology Not Reportable 06/18/16 04:35 Dimorphic RBCs Not Reportable 06/18/16 04:35 Polychromasia Few 06/18/16 04:35 Hypochromasia Not Reportable 06/18/16 04:35 Poikilocytosis Not Reportable 06/18/16 04:35 Anisocytosis 1+ 06/18/16 04:35 Microcytosis Not Reportable 06/18/16 04:35 Macrocytosis 2+ 06/18/16 04:35 Spherocytes Not Reportable 06/18/16 04:35 Pappenheimer Bodies Not Reportable 06/18/16 04:35 Sickle Cells Not Reportable 06/18/16 04:35 Target Cells Not Reportable 06/18/16 04:35 Tear Drop Cells Few 06/18/16 04:35 Ovalocytes Not Reportable 06/18/16 04:35 Stomatocytes 1+ 06/16/16 01:52 Helmet Cells Not Reportable 06/18/16 04:35 [place] Bodies Not Reportable 06/18/16 04:35 Calvin Rings Not Reportable 06/18/16 04:35 Woody Cells Not Reportable 06/18/16 04:35 Bite Cells Not Reportable 06/18/16 04:35 Crenated Cell Not Reportable 06/18/16 04:35 Elliptocytes Not Reportable 06/18/16 04:35 Acanthocytes (Spur) Not Reportable 06/18/16 04:35 Rouleaux Not Reportable 06/18/16 04:35 Hemoglobin C Crystals Not Reportable 06/18/16 04:35 Schistocytes Not Reportable 06/18/16 04:35 Malaria parasites Not Reportable 06/18/16 04:35 Abdiel Bodies Not Reportable 06/18/16 04:35 Hem Pathologist Commnt No 06/18/16 04:35 PT 20.0 Sec. (12.2-14.9) H 06/19/16 09:49 INR 1.70 (0.87-1.13) H 06/19/16 09:49 APTT 27.5 Sec. (24.2-36.6) 06/16/16 08:43 Sodium 137 mmol/L (137-145) 06/19/16 09:49 Potassium 3.9 mmol/L (3.6-5.0) D 06/19/16 09:49 Chloride 93.9 mmol/L (98-107) L 06/19/16 09:49 Carbon Dioxide 26 mmol/L (22-30) 06/19/16 09:49 Anion Gap 21 mmol/L 06/19/16 09:49 BUN 29 mg/dL (7-17) H 06/19/16 09:49 Creatinine 4.1 mg/dL (0.7-1.2) H 06/19/16 09:49 Estimated GFR 12 ml/min 06/19/16 09:49 BUN/Creatinine Ratio 7.07 % 06/19/16 09:49 Glucose 116 mg/dL (65-100) H 06/19/16 09:49 POC Glucose 132 (70-105) H 06/19/16 16:28 Lactic Acid 1.7 mmol/L (0.7-2.0) 06/16/16 12:17 Calcium 8.3 mg/dL (8.4-10.2) L 06/19/16 09:49 Magnesium 1.5 mg/dL (1.7-2.3) L 06/16/16 08:43 Total Bilirubin 1.2 mg/dL (0.1-1.2) 06/19/16 09:49 AST 964 units/L (5-40) H 06/19/16 09:49 ALT 651 units/L (7-56) H 06/19/16 09:49 Alkaline Phosphatase 198 units/L (35-129) H 06/19/16 09:49 Ammonia 55.0 umol/L (25-60) 06/16/16 08:43 Total Creatine Kinase 33 units/L (30-135) 06/16/16 08:43 CK-MB (CK-2) 1.4 ng/mL (0.0-4.0) 06/16/16 08:43 CK-MB (CK-2) Rel Index 4.2 (0-4) H 06/16/16 08:43 Troponin T < 0.010 ng/mL (0.00-0.029) 06/16/16 08:43 NT-Pro-B Natriuret Pep 2973 pg/mL (0-450) H 06/16/16 08:43 Total Protein 5.8 g/dL (6.3-8.2) L 06/19/16 09:49 Albumin 3.8 g/dL (3.9-5) L 06/19/16 09:49 Albumin/Globulin Ratio 1.9 % 06/19/16 09:49 Vitamin B12 2000 pg/mL (211-911) H 06/18/16 16:56 Hepatitis A IgM Ab -1 (NonReactive) 06/18/16 16:48 Hep Bs Antigen Non-reactive (Negative) 06/18/16 16:48 Hep B Core IgM Ab Non-reactive (NonReactive) 06/18/16 16:48 Hepatitis C Antibody Non-reactive (NonReactive) 06/18/16 16:48 Blood Type O POSITIVE 06/16/16 12:17 Antibody Screen Negative 06/16/16 12:17 Crossmatch See Detail 06/16/16 12:17
--- NOTE | 2016-06-19 18:31 | Consultation ---
History of Present Illness - Reason for Consult Consult date: 06/19/16 Evaluate Left thigh AVG Requesting physician: TAY HUSSEIN - History of Present Illness This patient is a 36-year-old female that was admitted via the emergency room on 06/16/2016 due to weakness with shortness of breath and chills. With concerns of possible line sepsis, blood cultures were ordered. An infectious disease consult was placed. This patient is well known to our service and is status post multiple previous long-term hemodialysis access in the past. She thrombosed all previous grafts. Most recently she had a left femoral artery to left femoral vein looped AV graft (using a 4-7 step Propaten graft) on 06/08/2016. Following admission, an ultrasound of the AV graft was ordered. This revealed a Aide-graft fluid collection. With concerns of a possible AV graft infection, a vascular surgery consult has been requested to further evaluate. Past History Past Medical History: anemia, diabetes, dialysis, ESRD, hypertension, PVD, renal failure, other (schizophrenia) Past Surgical History: Other (Right axillary artery to axillary vein upper arm loop AV graft which subsequently thrombosed, the above-stated left thigh looped AV graft, multiple previous Perma-cath insertions with replacements with central venous angioplasties due central venous stenosis and malfunctioning catheters) Social history: denies: prescription drug abuse, IV drug use Family history: hypertension Medications and Allergies Allergies Allergy/AdvReac Type Severity Reaction Status Date / Time metformin AdvReac Intermediate Vomiting Verified 01/10/16 02:52 colchicine [From Colcrys] AdvReac Unknown Verified 01/10/16 02:52 quetiapine fumarate AdvReac HYPER Verified 01/10/16 02:52 [From Seroquel] Home Medications Medication Instructions Recorded Confirmed Last Taken Type ARIPiprazole [Abilify TAB] 15 mg PO DAILY 07/21/15 06/16/16 06/07/16 20:00 History Divalproex ER [Depakote ER] 500 mg PO QDAY 07/21/15 06/16/16 06/07/16 20:00 History Levothyroxine [Synthroid] 25 mcg PO QAM 07/21/15 06/16/16 06/08/16 08:30 History Oxybutynin [Ditropan] 5 mg PO BID 07/21/15 06/16/1606/08/17 08:30 History Calcium Acetate 667 mg PO TID 11/01/15 06/16/16 06/07/16 20:00 History Docusate Sodium [Colace CAP] 1 tab PO DAILY 11/01/15 06/16/16 06/07/16 20:00 History FLUoxetine HCL [PROzac] 40 mg PO QDAY 11/01/15 06/16/16 06/07/16 20:00 History Esomeprazole Magnesium [NexIUM] 40 mg PO QDAY 11/16/15 06/16/16 06/08/16 08:30 History Mirtazapine 15 mg PO QDAY 11/16/15 06/16/16 06/07/16 20:00 History Dicyclomine [Bentyl] 10 mg PO TID PRN #15 capsule 01/12/16 06/16/16 06/07/16 20: 00 Rx ALBUTEROL Inhaler [ProAir HFA 2 puff IH QID PRN #1 inhalation 02/07/16 06/16/16 05/24/16 Rx Inhaler] Warfarin [Coumadin] 2.5 mg PO QDAY 06/07/16 06/16/16 06/06/16 History HYDROcodone/APAP 7.5-325 [[place] 1 each PO Q6HR PRN #60 tablet 06/08/16 06/16/16 Unknown Rx 7.5-325 mg TAB] Levofloxacin [Levaquin TAB] 250 mg PO Q48H #5 tablet 06/14/16 06/16/16 Unknown Rx Meclizine [Antivert] 12.5 mg PO DAILY PRN #30 tablet 06/14/16 06/16/16 Unknown Rx Metoprolol [Lopressor TAB] 12.5 mg PO BID #60 tablet 06/14/16 06/16/16 Unknown Rx Active Meds: Active Medications Acetaminophen (Tylenol) 650 mg PO Q4H PRN PRN Reason: Pain MILD(1-3)/Fever >100.5/POLK Acetaminophen/Hydrocodone Bitart ([place] 7.5/325) 1 each PO Q6HR PRN PRN Reason: Pain Albumin Human ([place] 25% (Albumin)) 25 gm IV ELENA PRN PRN Reason: Hypotension Albuterol (Proventil) 2.5 mg IH QIDRT LOUANN Last Admin: 06/19/16 15:50 Dose: 2.5 mg Aripiprazole (Abilify) 15 mg PO DAILY [facility] Last Admin: 06/19/16 09:19 Dose: 15 mg Bisacodyl (Dulcolax) 10 mg [place] QDAY PRN PRN Reason: Constipation unrelieved by MOM Calcium Acetate (Phoslo) 667 mg PO TIDWM [facility] Last Admin: 06/19/16 16:47 Dose: 667 mg Dicyclomine HCl (Bentyl) 10 mg PO TID PRN PRN Reason: Pain Divalproex Sodium (Depakote Er) 500 mg PO QDAY [facility] Last Admin: 06/19/16 09:19 Dose: 500 mg Docusate Sodium (Colace) 100 mg PO DAILY [facility] Last Admin: 06/19/16 09:19 Dose: 100 mg Epoetin García (Epogen) 20,000 unit IV ELENA PRN PRN Reason: hemodialysis Last Admin: 06/18/16 12:54 Dose: 20,000 unit Fluoxetine HCl (Prozac) 40 mg PO QDAY [facility] Last Admin: 06/19/16 09:19 Dose: 40 mg Heparin Sodium (Porcine) (Heparin) 5,000 unit SUB-Q Q12HR [facility] Last Admin: 06/19/16 09:22 Dose: 5,000 unit Heparin Sodium (Porcine) (Heparin) 5,000 unit IV ELENA PRN PRN Reason: hemodialysis Last Admin: 06/18/16 13:17 Dose: 5,000 unit Sodium Chloride (Nacl 0.9% 1000 Ml) 100 mls @ 999 mls/hr IV ELENA PRN PRN Reason: Hypotension Cefepime HCl (Maxipime/Ns 1 Gm/100 Ml) 100 mls @ 200 mls/hr IV QDAY [facility] PRN Reason: Protocol Last Admin: 06/19/16 10:44 Dose: 200 mls/hr Levothyroxine Sodium (Synthroid) 25 mcg PO Q24H [facility] Last Admin: 06/19/16 05:21 Dose: 25 mcg Meclizine HCl (Antivert) 12.5 mg PO DAILY PRN PRN Reason: Vertigo Metoprolol Tartrate (Lopressor) 12.5 mg PO BID [facility] Last Admin: 06/19/16 09:22 Dose: Not Given Mirtazapine (Remeron) 15 mg PO QDAY [facility] Last Admin: 06/19/16 09:19 Dose: 15 mg Ondansetron HCl (Zofran) 4 mg IV Q8H PRN PRN Reason: N/V unrelieved by Reglan Oxybutynin Chloride (Ditropan) 5 mg PO BID [facility] Last Admin: 06/19/16 09:19 Dose: 5 mg Oxycodone/Acetaminophen (Percocet 5/325) 1 tab PO Q6H PRN PRN Reason: Pain, Moderate (4-6) Pantoprazole Sodium (Protonix) 40 mg PO QDAC [facility] Last Admin: 06/19/16 09:19 Dose: 40 mg Vancomycin HCl (Vancomycin Pharmacy To Dose) 1 each IV PKCONSULT [facility] PRN Reason: Protocol Warfarin Sodium (Coumadin) 2.5 mg PO DAILY@1700 [facility] Last Admin: 06/19/16 16:46 Dose: 2.5 mg Review of Systems All systems: negative Exam - Constitutional Vitals: Temp Pulse Resp BP Pulse Ox 97.9 F 73 16 104/74 97 06/19/16 14:30 06/19/16 15:51 06/19/16 15:51 06/19/16 14:30 06/19/16 14:30 General appearance: Present: no acute distress - EENT Eyes: Present: EOM intact ENT: hearing intact - Respiratory Respiratory effort: normal - Extremities Extremities: no ischemia, normal temperature, abnormal (right femoral permacath , left thigh loop AV graft with a groin incision which is intact, she has ecchymosis around the tunnel site. No erythema was appreciated, no fluctuance was noted.) - Psychiatric Psychiatric: cooperative - Neurologic Neurologic: no focal deficits Results - Labs CBC & Chem 7: 06/20/16 11:05 06/19/16 09:49 Labs: Abnormal lab results 06/18/16 06/19/16 06/19/16 Range/Units 21:08 09:49 09:49 WBC 13.0 H (4.5-11.0) K/mm3 RBC 2.14 L (3.65-5.03) M/mm3 Hgb 8.3 L (10.1-14.3) gm/dl Hct 25.3 L (30.3-42.9) % MCV 118 H D (79-97) fl MCH 39 H (28-32) pg RDW 30.8 H (13.2-15.2) % Plt Count 80 L (140-440) K/mm3 PT 20.0 H (12.2-14.9) Sec. INR 1.70 H (0.87-1.13) Chloride (98-107) mmol/L BUN (7-17) mg/dL Creatinine (0.7-1.2) mg/dL Glucose (65-100) mg/dL POC Glucose 123 H (70-105) Calcium (8.4-10.2) mg/dL AST (5-40) units/L ALT (7-56) units/L Alkaline Phosphatase (35-129) units/L Total Protein (6.3-8.2) g/dL Albumin (3.9-5) g/dL 06/19/16 06/19/16 06/19/16 Range/Units 09:49 11:17 16:28 WBC (4.5-11.0) K/mm3 RBC (3.65-5.03) M/mm3 Hgb (10.1-14.3) gm/dl Hct (30.3-42.9) % MCV (79-97) fl MCH (28-32) pg RDW (13.2-15.2) % Plt Count (140-440) K/mm3 PT (12.2-14.9) Sec. INR (0.87-1.13) Chloride 93.9 L (98-107) mmol/L BUN 29 H (7-17) mg/dL Creatinine 4.1 H (0.7-1.2) mg/dL Glucose 116 H (65-100) mg/dL POC Glucose 160 H 132 H (70-105) Calcium 8.3 L (8.4-10.2) mg/dL AST 964 H (5-40) units/L ALT 651 H (7-56) units/L Alkaline Phosphatase 198 H (35-129) units/L Total Protein 5.8 L (6.3-8.2) g/dL Albumin 3.8 L (3.9-5) g/dL Assessment and Plan Pt was admitted with generalized weakness with concerns of a possible line sepsis. Blood cultures were ordered. No infectious disease workup is in progress. She has a aide-graft fluid collection that could represent seroma, hematoma, pseudo-aneurysm, vs abscess. A vascular surgery consult has been requested to further evaluate. She is s/p a recent L thigh looped AVG (using a 4-7 stepped Propaten graft) on 06/08/2016. We will repeat the u/s (by the vasc lab) to eval for flow into fluid collection which could represent a pseudo- aneurysm. Pt's leg has eccymosis, but no erythema or appreciable fluctuance. Not convinced the AVG is infected at this point. Will follow along with you. Thank you for this consult. - Patient Problems (1) Malfunction of arteriovenous graft Current Visit: Yes Status: Acute
[2016-06-20] MEDS: SYNTHROID PO SCH (05:00)
[2016-06-20 08:40] LABS: INR 1.61 (0.87-1.13)
[2016-06-20] MEDS: PROVENTIL IH SCH ×4 (08:55→19:30)
[2016-06-20] MEDS: ABILIFY PO SCH (10:02)
[2016-06-20] MEDS: PHOSLO PO SCH ×3 (10:02→20:00)
[2016-06-20] MEDS: COLACE PO SCH (10:02)
[2016-06-20] MEDS: PROTONIX PO SCH (10:02)
[2016-06-20] MEDS: DITROPAN PO SCH ×2 (10:04→22:24)
[2016-06-20] MEDS: PROzac PO SCH (10:04)
[2016-06-20] MEDS: LOPRESSOR PO SCH ×2 (10:04→22:24)
[2016-06-20] MEDS: HEPARIN SUB-Q SCH ×2 (10:05→22:23)
[2016-06-20] MEDS: REMERON PO SCH (10:05)
--- NOTE | 2016-06-20 10:24 | Progress Note ---
Assessment and Plan Antibiotics: 1) vancomycin (06/16 2) cefepime 1gm iv Qdaily (06/17 This is a 36 year old woman with ESRD on HD, schizophrenia, bipolar and a left femoral AV graft that was placed on 06/08/16 presenting here with weakness and lightheadedness. She was found to have leukocytosis and transaminitis with AST of 809, ALT 382. Previously she had normal liver function test dated 06/11/16. Chest xray without infiltrates. Concerned as well regarding left thigh AV graft swelling and tenderness 1) Possible permacath associated bloodstream infection, leukocytosis persist but patient is afebrile. She reports that this permacath is several months old. Blood cultures negative so far. Will have blood cultures done directly from the permacath. --all blood cultures negative, doubt permacath associated infection 2) leukocytosis, unclear reason. source could be permacath vs AV graft surgical site. Patient is complaining of pain at the AV graft site --down to 13, unclear reason 3) skin and soft tissue infection, the site around the AV graft is edematous with induration --ultrasound of soft tissue revealed 3.9 x 4.5 x 6.6cm cystic collection next to the AV graft, possible hematoma --vascular evaluated 4) Transaminitis, unclear source, rule out viral insult, doubt viral hepatitis, numbers should be much higher --await cmv --hepatitis panel negative --will obtain ct scan of abdomen 5) thrombocytopenia, down to 80, unclear reason. if it continue to decrease will have to consider medication related Plan: 1) discontinue vancomycin 2) continue cefepime now 3) appreciate vascular input 4) follow up blood cultures 6) follow up cmv antigenemia 7) monitor liver function test 8) obtain CT scan of abdomen and pelvis Subjective Date of service: 06/20/16 Interval history: Patient is not happy about being NPO, she said she needs to eat. She does complain of ongoing left leg pain Objective - Constitutional Vitals: Selected Entries 06/20/16 07:14 Temperature 98.0 F Pulse Rate [ 71 Apical] Respiratory 16 Rate O2 Sat by Pulse 97 Oximetry Blood Pressure 150/69 [Left Arm] Blood Pressure 96 Mean [Left Arm] General appearance: Present: no acute distress, well-nourished, obese - EENT Eyes: PERRL, EOM intact, no scleral icterus, no conjunctival injection ENT: hearing intact, clear oral mucosa Ears: bilateral: normal - Neck Neck: supple, normal ROM, no enlarged thyroid, no masses or JVD - Respiratory Respiratory: bilateral: CTA - Breasts Breasts: deferred - Cardiovascular Rhythm: regular Heart Sounds: Present: S1 & S2 Extremities: no ischemia, abnormal (left thigh induration, swelling, right thigh permacath) - Gastrointestinal General gastrointestinal: Present: soft, non-tender, normal bowel sounds Rectal Exam: deferred - Genitourinary Female genitourinary: deferred - Integumentary Integumentary: clear, warm, dry - Musculoskeletal Musculoskeletal: strength equal bilaterally - Labs CBC & Chem 7: 06/19/16 09:49 06/19/16 09:49 Labs: Microbiology 06/19/16 00:13 Femoral Line Blood Culture - Preliminary NO GROWTH AFTER 24 HOURS 06/18/16 16:48 Peripheral/Venous Blood Culture - Preliminary NO GROWTH AFTER 24 HOURS 06/16/16 08:43 Peripheral/Venous Blood Culture - Preliminary NO GROWTH AFTER 72 HOURS 06/16/16 08:43 Peripheral/Venous Blood Culture - Preliminary NO GROWTH AFTER 72 HOURS Laboratory Tests 06/19/16 06/19/16 09:49 09:49 WBC 13.0 H Plt Count 80 L BUN 29 H Creatinine 4.1 H AST 964 H ALT 651 H
[2016-06-20] MEDS: MAXIPIME/NS 1 GM/100 ML 100 ML IV SCH (10:35)
[2016-06-20 11:25] LABS: Hematocrit 21.3 % (30.3-42.9); Hemoglobin 6.9 gm/dl (10.1-14.3); Mean Corpuscular HGB Conc 32 % (30-34); Mean Corpuscular Hemoglobin 39 pg (28-32); Red Blood Count 1.77 M/mm3 (3.65-5.03); White Blood Count 10.1 K/mm3 (4.5-11.0)
[2016-06-20 11:28] LABS: Mean Corpuscular Volume 120 fl (79-97); Platelet Count 54 K/mm3 (140-440); Red Cell Distribution Width 31.1 % (13.2-15.2)
[2016-06-20 12:25] LABS: Basophils % (Manual) 0 % (0.0-1.8); Blastocytes % (Manual) 0 %; Eosinophils % (Manual) 0 % (0.0-4.3)
[2016-06-20 12:26] LABS: Anisocytosis 2+; Ovalocytes 1+; Polychromasia 1+; Tear Drop Cells Few
[2016-06-20 12:27] LABS: Diff Status Complete; Macrocytosis 2+; Platelet Estimate Appears Decreased
--- NOTE | 2016-06-20 13:06 | Progress Note ---
Assessment and Plan End-stage renal disease patient is currently on maintenance hemodialysis on Saturday,she'll continue his maintenance hemodialysis at this time No evidence to suggest line sepsis at this time all cultures have been negative Currently she does have AV graft which is being followed by vascular surgery Needs PRBC 1- unit at least today Due to severe anemia and thrombus cytopenia she will need to be followed by hematology as well as GI patient remotely remembers having an EGD and colonoscopy done about a year ago in the [facility] area CT scan of the abdomen pelvis has been ordered by infectious disease patient also does have swelling around the graft area for which radiological workup has been ordered Patient is doing high-protein diet counseling and education was done regarding ESRD time of evaluation 945 today Subjective Interval history: patient was seen today for follow-up on multiple renal related issues currently she has no complaints of any fever or chills due for dialysis today Events of 24 hours vitals labs intake output medications were reviewed Blood cultures remain negative for last 72 hours Patient is currently being followed by infectious disease Objective - Vital Signs Vital signs: Vital Signs - 12hr 06/20/16 06/20/16 06/20/16 07:14 11:05 11:15 Temperature 98.0 F 98.0 F Pulse Rate 83 80 Pulse Rate [ 71 Apical] Respiratory 16 20 Rate Blood Pressure 153/85 126/66 Blood Pressure 150/69 [Left Arm] O2 Sat by Pulse 97 Oximetry 06/20/16 06/20/16 06/20/16 11:30 11:45 12:00 Temperature Pulse Rate 79 78 78 Pulse Rate [ Apical] Respiratory Rate Blood Pressure 142/71 118/75 143/74 Blood Pressure [Left Arm] O2 Sat by Pulse Oximetry 06/20/16 06/20/16 06/20/16 12:15 12:30 12:45 Temperature Pulse Rate 85 86 83 Pulse Rate [ Apical] Respiratory Rate Blood Pressure 125/71 115/70 101/55 Blood Pressure [Left Arm] O2 Sat by Pulse Oximetry - Lab 06/20/16 11:05 06/19/16 09:49 Most recent lab results Calcium 8.3 mg/dL (8.4-10.2) L 06/19/16 09:49 Magnesium 1.5 mg/dL (1.7-2.3) L 06/16/16 08:43
[2016-06-20] MEDS: HEPARIN IV PRN (13:50)
--- NOTE | 2016-06-20 16:00 | Cat Scan Report ---
CT ABDOMEN AND PELVIS WITHOUT CONTRAST: INDICATION: Abdominal pain, elevated liver function tests. COMPARISON: 08/27/2014 CT report; images not retrievable at this time. FINDINGS: Noncontrast abdomen and pelvis CT performed. LUNG BASES: Small right pleural effusion measuring 2.2 cm AP with mild underlying right lower lobe atelectasis. Mild peripheral right middle lobe possible atelectasis as well. Central catheter tip seen in the right atrium. Another long right groin catheter courses the IVC with its tip in the right atrium as well. Few coronary calcifications. Normal heart size. Small right distal paraesophageal fluid near the GE junction. Nonspecific distal esophageal wall thickening, not excluded for gastroesophageal reflux and/or hiatal hernia, amongst others. ABDOMEN: Please note that sensitivity to detect small visceral lesions is limited due to the absence of intravenous or oral contrast. Right hepatic lobe approximately 20 cm in midclavicular length. Otherwise, grossly unremarkable unenhanced liver, spleen, pancreas, adrenals, nonaneurysmal abdominal aorta with slight atherosclerotic calcifications and nonhydronephrotic, though atrophic kidneys bilaterally measuring approximately 6.5 cm in length. Contracted, suboptimally assessed gallbladder with subtle fat stranding or fluid not entirely excluded as on axial image 124, series 2, amongst others. No ascites. Numerous mesenteric lymph nodes measuring up to approximately 1 cm though noted as on axial image 158, series 2. Few retroperitoneal lymph nodes as well with the largest preaortic lymph node measuring 1.2 cm, axial image 187. Numerous other right iliac lymph nodes as well measuring up to 1.3 cm on the right, axial image 255, series 2 while the largest right external iliac lymph node measures 2 x 1.3 cm, axial image 280, series 2 though with some intrinsic fat. Nonopacified GI tract evaluation limited, though grossly nonobstructive. Mild colonic stool, most along the ascending colon. PELVIS: Non-opacified urinary bladder suboptimally distended and assessed, though grossly unremarkable. Uterus, adnexa and the rectum also appear within normal limits. Few pelvic phleboliths. Mild presacral fat stranding/density though noted. Presumed nonopacified bowel positioned suprapubic as on axial series 2, images 270-310 though noted somewhat prominent/questionably thick-walled. Left groin/femoral jump graft incompletely imaged. Approximately 6.4 x 4.7 cm left groin simple attenuation fluid collection/seroma as on axial image 306, series 2, amongst others. Diffuse subcutaneous stranding/edema, more so along the flanks and the pelvis. Few postsurgical changes along the anterior abdominal wall near the pannus. Few anterior abdominal wall subcutaneous collaterals also incidentally noted. Mild scoliosis and few degenerative changes along the imaged spine. CONCLUSION: 1. Overall interval worsening by description since August 2014 CT report with a new small right pleural effusion, right lower lung atelectasis, new right central catheters, subcutaneous edema and left groin seroma. Left groin/femoral jump graft also incompletely imaged. 2. Poorly distended and assessed gallbladder with subtle surrounding fat stranding or fluid not excluded. Hepatomegaly. Please correlate. 3. Nonspecific presumed nonopacified bowel appearance just above the urinary bladder, though not excluded thick-walled on this limited, unenhanced exam, as described. 4. Various other incidental findings, including atrophic kidneys, numerous mesenteric and few retroperitoneal lymph nodes as also mild presacral fat stranding, amongst others, as detailed above. Thank you for the opportunity to participate in this patient's care.
--- NOTE | 2016-06-20 16:45 | Progress Note ---
Assessment and Plan No pseudoaneurysm visualized on vascular lab study. CT scan of the abdomen pelvis was ordered by the infectious disease service. These images were reviewed. The perigraft fluid does not have the attenuation of blood. Suspect this is a serous. No surgical intervention recommended at this point. Continue observation for now, and antibiotics as per the infectious disease service recommendations. - Patient Problems (1) Malfunction of arteriovenous graft Current Visit: Yes Status: Acute Subjective Date of service: 06/20/16 Interval history: Patient is awake without specific complaints at present. Objective - Constitutional Vitals: Vital Signs - 12hr 06/20/16 06/20/16 06/20/16 07:14 11:05 11:15 Temperature 98.0 F 98.0 F Pulse Rate 83 80 Pulse Rate [ 71 Apical] Respiratory 16 20 Rate Blood Pressure 153/85 126/66 Blood Pressure 150/69 [Left Arm] O2 Sat by Pulse 97 Oximetry 06/20/16 06/20/16 06/20/16 11:30 11:45 12:00 Temperature Pulse Rate 79 78 78 Pulse Rate [ Apical] Respiratory Rate Blood Pressure 142/71 118/75 143/74 Blood Pressure [Left Arm] O2 Sat by Pulse Oximetry 06/20/16 06/20/16 06/20/16 12:15 12:30 12:45 Temperature Pulse Rate 85 86 83 Pulse Rate [ Apical] Respiratory Rate Blood Pressure 125/71 115/70 101/55 Blood Pressure [Left Arm] O2 Sat by Pulse Oximetry 06/20/16 06/20/16 06/20/16 13:00 13:15 13:30 Temperature Pulse Rate 83 74 71 Pulse Rate [ Apical] Respiratory Rate Blood Pressure 106/65 104/56 107/55 Blood Pressure [Left Arm] O2 Sat by Pulse Oximetry 06/20/16 06/20/16 06/20/16 13:45 14:05 14:10 Temperature 98.0 F Pulse Rate 82 80 70 Pulse Rate [ Apical] Respiratory 20 Rate Blood Pressure 117/72 110/70 110/55 Blood Pressure [Left Arm] O2 Sat by Pulse Oximetry General appearance: Present: no acute distress - EENT Eyes: EOM intact ENT: hearing intact - Respiratory Respiratory effort: normal Extremities: no ischemia, abnormal (left groin incisions intact. Aide- Incisional ecchymosis but no appreciable erythema.) - Neurologic Neurologic: no focal deficits - Psychiatric Psychiatric: appropriate mood/affect, cooperative - Labs CBC & Chem 7: 06/20/16 11:05 06/19/16 09:49 Labs: Abnormal lab results 06/19/16 06/19/16 06/19/16 Range/Units 11:17 16:28 21:13 RBC (3.65-5.03) M/mm3 Hgb (10.1-14.3) gm/dl Hct (30.3-42.9) % MCV (79-97) fl MCH (28-32) pg RDW (13.2-15.2) % Plt Count (140-440) K/mm3 Seg Neuts % (Manual) (40.0-70.0) % Monocytes % (Manual) (0.0-7.3) % Nucleated RBC % (0.0-0.9) % Monocytes # (Manual) (0.0-0.8) K/mm3 PT (12.2-14.9) Sec. INR (0.87-1.13) POC Glucose 160 H 132 H 143 H (70-105) 06/20/16 06/20/16 06/20/16 Range/Units 08:09 11:05 16:11 RBC 1.77 L (3.65-5.03) M/mm3 Hgb 6.9 L (10.1-14.3) gm/dl Hct 21.3 L (30.3-42.9) % MCV 120 H (79-97) fl MCH 39 H (28-32) pg RDW 31.1 H (13.2-15.2) % Plt Count 54 L (140-440) K/mm3 Seg Neuts % (Manual) 74.0 H (40.0-70.0) % Monocytes % (Manual) 9.0 H (0.0-7.3) % Nucleated RBC % 1.0 H (0.0-0.9) % Monocytes # (Manual) 0.9 H (0.0-0.8) K/mm3 PT 19.1 H (12.2-14.9) Sec. INR 1.61 H (0.87-1.13) POC Glucose 139 H (70-105)
[2016-06-20] MEDS ORDERED: COUMADIN PO SCH (17:00)
[2016-06-21] MEDS ORDERED: SYNTHROID PO SCH (05:00)
[2016-06-21] MEDS: PROVENTIL IH SCH ×2 (07:32→13:25)
--- NOTE | 2016-06-21 07:55 | Progress Note ---
Assessment and Plan - Patient Problems (1) Line sepsis associated with dialysis catheter Current Visit: Yes Status: Acute Plan to address problem: IV abx, supportive care, continue current abx therapy until leukocytosis resolves. ID consulted (2) Abdominal pain Current Visit: Yes Status: Resolved Plan to address problem: r (3) Symptomatic anemia Current Visit: Yes Status: Chronic Plan to address problem: Hgb currently stable, continue current care, (4) Transaminitis Current Visit: Yes Status: Acute (5) End-stage renal disease needing dialysis Current Visit: Yes Status: Chronic Plan to address problem: Nephrology consulted, dialysis as per renal team. (6) Seizure disorder Current Visit: No Status: Chronic Plan to address problem: continue current therapy (7) DVT prophylaxis Current Visit: No Status: Acute History Interval history: Pt resting in bed, Pt denies pain, No reported nursing events. D/C planning in AM after vascular intervention. Hospitalist Physical - Constitutional Vitals: Temp Pulse Resp BP Pulse Ox 98.2 F 92 H 16 121/67 98 06/21/16 07:35 06/21/16 07:35 06/21/16 07:35 06/21/16 07:35 06/21/16 07:35 General appearance: Present: no acute distress - EENT Eyes: Present: PERRL, EOM intact ENT: hearing intact - Neck Neck: Present: supple - Respiratory Respiratory: bilateral: CTA - Cardiovascular Rhythm: regular Heart Sounds: Present: S1 & S2 - Extremities Extremities: no ischemia Peripheral Pulses: within normal limits - Abdominal General gastrointestinal: soft, non-tender, non-distended - Integumentary Integumentary: Present: clear, dry - Psychiatric Psychiatric: cooperative - Neurologic Neurologic: CNII-XII intact Results - Labs CBC & Chem 7: 06/20/16 11:05 06/19/16 09:49 Labs: Laboratory Last Values WBC 10.1 K/mm3 (4.5-11.0) 06/20/16 11:05 RBC 1.77 M/mm3 (3.65-5.03) L 06/20/16 11:05 Hgb 6.9 gm/dl (10.1-14.3) L 06/20/16 11:05 Hct 21.3 % (30.3-42.9) L 06/20/16 11:05 MCV 120 fl (79-97) H 06/20/16 11:05 MCH 39 pg (28-32) H 06/20/16 11:05 MCHC 32 % (30-34) 06/20/16 11:05 RDW 31.1 % (13.2-15.2) H 06/20/16 11:05 Plt Count 54 K/mm3 (140-440) L 06/20/16 11:05 Add Manual Diff Complete 06/20/16 11:05 Total Counted 100 06/20/16 11:05 Seg Neuts % (Manual) 74.0 % (40.0-70.0) H 06/20/16 11:05 Band Neutrophils % 1.0 % 06/20/16 11:05 Lymphocytes % (Manual) 16.0 % (13.4-35.0) 06/20/16 11:05 Reactive Lymphs % (Man) 0 % 06/20/16 11:05 Monocytes % (Manual) 9.0 % (0.0-7.3) H 06/20/16 11:05 Eosinophils % (Manual) 0 % (0.0-4.3) 06/20/16 11:05 Basophils % (Manual) 0 % (0.0-1.8) 06/20/16 11:05 Metamyelocytes % 0 % 06/20/16 11:05 Myelocytes % 0 % 06/20/16 11:05 Promyelocytes % 0 % 06/20/16 11:05 Blast Cells % 0 % 06/20/16 11:05 Nucleated RBC % 1.0 % (0.0-0.9) H 06/20/16 11:05 Seg Neutrophils # Man 7.5 K/mm3 (1.8-7.7) 06/20/16 11:05 Band Neutrophils # 0.1 K/mm3 06/20/16 11:05 Lymphocytes # (Manual) 1.6 K/mm3 (1.2-5.4) 06/20/16 11:05 Abs React Lymphs (Man) 0.0 K/mm3 06/20/16 11:05 Monocytes # (Manual) 0.9 K/mm3 (0.0-0.8) H 06/20/16 11:05 Eosinophils # (Manual) 0.0 K/mm3 (0.0-0.4) 06/20/16 11:05 Basophils # (Manual) 0.0 K/mm3 (0.0-0.1) 06/20/16 11:05 Metamyelocytes # 0.0 K/mm3 06/20/16 11:05 Myelocytes # 0.0 K/mm3 06/20/16 11:05 Promyelocytes # 0.0 K/mm3 06/20/16 11:05 Blast Cells # 0.0 K/mm3 06/20/16 11:05 WBC Morphology Not Reportable 06/20/16 11:05 Hypersegmented Neuts Not Reportable 06/20/16 11:05 Hyposegmented Neuts Not Reportable 06/20/16 11:05 Hypogranular Neuts Not Reportable 06/20/16 11:05 Smudge Cells Not Reportable 06/20/16 11:05 Toxic Granulation Not Reportable 06/20/16 11:05 Toxic Vacuolation Not Reportable 06/20/16 11:05 Dohle Bodies Not Reportable 06/20/16 11:05 Pelger-Huet Anomaly Not Reportable 06/20/16 11:05 Le Rods Not Reportable 06/20/16 11:05 Platelet Estimate Appears decreased 06/20/16 11:05 Clumped Platelets Not Reportable 06/20/16 11:05 Plt Clumps, EDTA Not Reportable 06/20/16 11:05 Large Platelets Not Reportable 06/20/16 11:05 Giant Platelets Not Reportable 06/20/16 11:05 Platelet Satelliting Not Reportable 06/20/16 11:05 Plt Morphology Comment Not Reportable 06/20/16 11:05 RBC Morphology Not Reportable 06/20/16 11:05 Dimorphic RBCs Not Reportable 06/20/16 11:05 Polychromasia 1+ 06/20/16 11:05 Hypochromasia Not Reportable 06/20/16 11:05 Poikilocytosis Not Reportable 06/20/16 11:05 Anisocytosis 2+ 06/20/16 11:05 Microcytosis Not Reportable 06/20/16 11:05 Macrocytosis 2+ 06/20/16 11:05 Spherocytes Not Reportable 06/20/16 11:05 Pappenheimer Bodies Not Reportable 06/20/16 11:05 Sickle Cells Not Reportable 06/20/16 11:05 Target Cells Not Reportable 06/20/16 11:05 Tear Drop Cells Few 06/20/16 11:05 Ovalocytes 1+ 06/20/16 11:05 Stomatocytes 1+ 06/16/16 01:52 Helmet Cells Not Reportable 06/20/16 11:05 [place] Bodies Not Reportable 06/20/16 11:05 Leroy Rings Not Reportable 06/20/16 11:05 Woody Cells Not Reportable 06/20/16 11:05 Bite Cells Not Reportable 06/20/16 11:05 Crenated Cell Not Reportable 06/20/16 11:05 Elliptocytes Not Reportable 06/20/16 11:05 Acanthocytes (Spur) Not Reportable 06/20/16 11:05 Rouleaux Not Reportable 06/20/16 11:05 Hemoglobin C Crystals Not Reportable 06/20/16 11:05 Schistocytes Not Reportable 06/20/16 11:05 Malaria parasites Not Reportable 06/20/16 11:05 Abdiel Bodies Not Reportable 06/20/16 11:05 Hem Pathologist Commnt No 06/20/16 11:05 PT 19.1 Sec. (12.2-14.9) H 06/20/16 08:09 INR 1.61 (0.87-1.13) H 06/20/16 08:09 APTT 27.5 Sec. (24.2-36.6) 06/16/16 08:43 Sodium 137 mmol/L (137-145) 06/19/16 09:49 Potassium 3.9 mmol/L (3.6-5.0) D 06/19/16 09:49 Chloride 93.9 mmol/L (98-107) L 06/19/16 09:49 Carbon Dioxide 26 mmol/L (22-30) 06/19/16 09:49 Anion Gap 21 mmol/L 06/19/16 09:49 BUN 29 mg/dL (7-17) H 06/19/16 09:49 Creatinine 4.1 mg/dL (0.7-1.2) H 06/19/16 09:49 Estimated GFR 12 ml/min 06/19/16 09:49 BUN/Creatinine Ratio 7.07 % 06/19/16 09:49 Glucose 116 mg/dL (65-100) H 06/19/16 09:49 POC Glucose 103 (70-105) 06/21/16 06:49 Lactic Acid 1.7 mmol/L (0.7-2.0) 06/16/16 12:17 Calcium 8.3 mg/dL (8.4-10.2) L 06/19/16 09:49 Magnesium 1.5 mg/dL (1.7-2.3) L 06/16/16 08:43 Total Bilirubin 1.2 mg/dL (0.1-1.2) 06/19/16 09:49 AST 964 units/L (5-40) H 06/19/16 09:49 ALT 651 units/L (7-56) H 06/19/16 09:49 Alkaline Phosphatase 198 units/L (35-129) H 06/19/16 09:49 Ammonia 55.0 umol/L (25-60) 06/16/16 08:43 Total Creatine Kinase 33 units/L (30-135) 06/16/16 08:43 CK-MB (CK-2) 1.4 ng/mL (0.0-4.0) 06/16/16 08:43 CK-MB (CK-2) Rel Index 4.2 (0-4) H 06/16/16 08:43 Troponin T < 0.010 ng/mL (0.00-0.029) 06/16/16 08:43 NT-Pro-B Natriuret Pep 2973 pg/mL (0-450) H 06/16/16 08:43 Total Protein 5.8 g/dL (6.3-8.2) L 06/19/16 09:49 Albumin 3.8 g/dL (3.9-5) L 06/19/16 09:49 Albumin/Globulin Ratio 1.9 % 06/19/16 09:49 Vitamin B12 2000 pg/mL (211-911) H 06/18/16 16:56 Random Vancomycin 27.3 ug/mL (0-40.0) 06/20/16 08:09 CMV DNA PCR log copying machine mechanic/mL See scanned report 06/17/16 19:10 Hepatitis A IgM Ab -1 (NonReactive) 06/18/16 16:48 Hep Bs Antigen Non-reactive (Negative) 06/18/16 16:48 Hep B Core IgM Ab Non-reactive (NonReactive) 06/18/16 16:48 Hepatitis C Antibody Non-reactive (NonReactive) 06/18/16 16:48 Blood Type O POSITIVE 06/16/16 12:17 Antibody Screen Negative 06/16/16 12:17 Crossmatch See Detail 06/16/16 12:17
--- NOTE | 2016-06-21 07:56 | Discharge Summary ---
Providers - Providers Date of Admission: 06/16/16 14:08 Attending physician: JAZMIN WOOTEN 06/19/16 11:45 Consult to Physician [CONS] Routine Consulting Provider: EDWIGE GIRON Reason For Exam: fluid collection left thigh Place consult to:: inhouse Notified:: yes Comment:: spoke with Sammy Avila Primary care physician: SIGN ERECTOR AND REPAIRER Hospitalization Condition: Stable Hospital course: 36 YO Female admitted for Sepsis and suspected dialysis catheter infection. Pt treated IAW sepsis protocol. Pt treated with IV abx, IVF and supportive care. Nephrology team consulted and patient was treated with dialysis as per nephrology team. ID service consulted. Pt underwent lab evaluation of evaluate for source of infection. Pt infectious disease workup negative and abx discontinued as per ID service recommendations. Vascular surgery consulted for evaluation of dialysis catheter. Pt workup negative. PT symptoms improved with therapy. Pt convalesced fair during hospital course. Pt medically optimized and back to usual state of health. Pt seen and evaluated prior to discharge but no significant new physical exam findings. Pt discharged home and instructed to f/ u pcp 1wk. 35 minutes dedicated to patient discharge. Disposition: DISCHARGED TO HOME OR SELFCARE - Discharge Diagnoses (1) Line sepsis associated with dialysis catheter Status: Acute (2) Abdominal pain Status: Resolved (3) Symptomatic anemia Status: Chronic (4) Transaminitis Status: Acute (5) End-stage renal disease needing dialysis Status: Chronic (6) Seizure disorder Status: Chronic (7) DVT prophylaxis Status: Acute Core Measure Documentation - Palliative Care Palliative Care/ Comfort Measures: Not Applicable - Core Measures Any of the following diagnoses?: none Exam - Constitutional Vitals: Temp Pulse Resp BP Pulse Ox 98.2 F 92 H 16 121/67 98 06/21/16 07:35 06/21/16 07:35 06/21/16 07:35 06/21/16 07:35 06/21/16 07:35 General appearance: Present: no acute distress, well-nourished - EENT Eyes: Present: PERRL ENT: hearing intact, clear oral mucosa - Neck Neck: Present: supple, normal ROM - Respiratory Respiratory effort: normal Respiratory: bilateral: CTA - Cardiovascular Heart Sounds: Present: S1 & S2. Absent: rub, click - Extremities Extremities: pulses symmetrical, No edema Peripheral Pulses: within normal limits - Abdominal General gastrointestinal: Present: soft, non-tender, non-distended, normal bowel sounds Female genitourinary: Present: normal - Integumentary Integumentary: Present: clear, warm, dry - Musculoskeletal Musculoskeletal: gait normal, strength equal bilaterally - Psychiatric Psychiatric: appropriate mood/affect, intact judgment & insight - Neurologic Neurologic: CNII-XII intact, moves all extremities Plan Activity: advance as tolerated Diet: renal Follow up with: PRIMARY CARE, [Primary Care Provider] - 3-5 Days Forms: Warfarin Discharge Instruction
[2016-06-21] MEDS: PHOSLO PO SCH ×2 (09:00→12:48)
--- NOTE | 2016-06-21 10:02 | Progress Note ---
Assessment and Plan end-stage renal disease patient is currently on maintenance hemodialysis Saturday She will need to continue with hemodialysis at this time Blood cultures have been negative so far Current axis is a vascular graft which is currently being followed by vascular surgery My recommendation will be to give her 1 unit of packed red blood cell transfusion She does have cytopenias and will benefit from GI as well as a repeat hematology evaluation Overall she is doing better Patient needs to maintain high protein diet Monitor dialysis related labs Subjective Interval history: patient was seen today for follow-up on multiple renal-related issues Denies any complaints of chest pain pressure or shortness of breath Overall feeling better Events of 24 hours are noted Objective - Vital Signs Vital signs: Vital Signs - 12hr 06/20/16 06/21/16 22:24 07:35 Temperature 98.2 F Pulse Rate 84 Pulse Rate [ 92 H Left Radial] Respiratory 16 Rate Blood Pressure 108/66 Blood Pressure 121/67 [Left Arm] O2 Sat by Pulse 98 Oximetry - General Appearance General appearance: appears stated age EENT: mucous membranes moist (mild pallor but better) Neck: no JVD Cardiology: regular Gastrointestinal: normal - Lab 06/21/16 10:12 06/19/16 09:49 Most recent lab results Calcium 8.3 mg/dL (8.4-10.2) L 06/19/16 09:49 Magnesium 1.5 mg/dL (1.7-2.3) L 06/16/16 08:43
[2016-06-21 10:25] LABS: Hematocrit 26.4 % (30.3-42.9); Hemoglobin 8.5 gm/dl (10.1-14.3); Mean Corpuscular HGB Conc 32 % (30-34); Mean Corpuscular Hemoglobin 39 pg (28-32); Red Blood Count 2.19 M/mm3 (3.65-5.03); White Blood Count 11.1 K/mm3 (4.5-11.0)
[2016-06-21 10:27] LABS: Mean Corpuscular Volume 120 fl (79-97); Platelet Count 79 K/mm3 (140-440); Red Cell Distribution Width 31.3 % (13.2-15.2)
--- NOTE | 2016-06-21 10:37 | Progress Note ---
Assessment and Plan Antibiotics: 1) vancomycin (06/16 2) cefepime 1gm iv Qdaily (06/17 This is a 36 year old woman with ESRD on HD, schizophrenia, bipolar and a left femoral AV graft that was placed on 06/08/16 presenting here with weakness and lightheadedness. She was found to have leukocytosis and transaminitis with AST of 809, ALT 382. Previously she had normal liver function test dated 06/11/16. Chest xray without infiltrates. Concerned as well regarding left thigh AV graft swelling and tenderness 1) Possible permacath associated bloodstream infection, leukocytosis persist but patient is afebrile. She reports that this permacath is several months old. Blood cultures negative so far. Will have blood cultures done directly from the permacath. --all blood cultures negative, doubt permacath associated infection 2) leukocytosis, unclear reason. source could be permacath vs AV graft surgical site. Patient is complaining of pain at the AV graft site --resolved 3) skin and soft tissue infection, the site around the AV graft is edematous with induration --ultrasound of soft tissue revealed 3.9 x 4.5 x 6.6cm cystic collection next to the AV graft, possible hematoma --vascular evaluated --no abscess at the site of the graft 4) Transaminitis, unclear source, rule out viral insult, doubt viral hepatitis, numbers should be much higher -- cmv negative --hepatitis panel negative --Ct scan revealed hapatomegaly --negative hepatitis panel 5) thrombocytopenia, down to 54, unclear reason. if it continue to decrease will have to consider medication related. Will discontinue cefepime as a possible cause of thrombocytopenia Plan: 1) discontinue cefepime, this is day 5, rule out cause of thrombocytopenia 2) appreciate vascular input 3) follow up blood cultures 4) monitor liver function test and platelets Subjective Date of service: 06/21/16 Interval history: Patient continues to complain of left leg pain, she does not have abdominal pain , no nausea or vomiting Objective - Constitutional Vitals: Selected Entries 06/20/16 06/21/16 22:24 07:35 Temperature 98.2 F Pulse Rate [ 92 H Left Radial] Respiratory 16 Rate O2 Sat by Pulse 98 Oximetry Blood Pressure 108/66 Blood Pressure 121/67 [Left Arm] Blood Pressure 80 Mean Blood Pressure 85 Mean [Left Arm] General appearance: Present: no acute distress, well-nourished, obese - EENT Eyes: PERRL, EOM intact, no scleral icterus, no conjunctival injection ENT: hearing intact, clear oral mucosa Ears: bilateral: normal - Neck Neck: supple, normal ROM, no enlarged thyroid, no masses or JVD - Respiratory Respiratory: bilateral: CTA - Breasts Breasts: deferred - Cardiovascular Rhythm: regular Heart Sounds: Present: S1 & S2 Extremities: no ischemia Extremity abnormal: edema (left thigh) - Gastrointestinal General gastrointestinal: Present: soft, non-tender, normal bowel sounds Rectal Exam: deferred - Genitourinary Female genitourinary: deferred - Integumentary Integumentary: dry, no jaundice, no rash - Musculoskeletal Musculoskeletal: strength equal bilaterally - Psychiatric Psychiatric: appropriate mood/affect, cooperative - Labs CBC & Chem 7: 06/21/16 10:12 06/19/16 09:49 Labs: Microbiology 06/19/16 00:13 Femoral Line Blood Culture - Preliminary NO GROWTH AFTER 48 HOURS 06/18/16 16:48 Peripheral/Venous Blood Culture - Preliminary NO GROWTH AFTER 48 HOURS 06/16/16 08:43 Peripheral/Venous Blood Culture - Preliminary NO GROWTH AFTER 4 DAYS Laboratory Tests 06/18/16 06/19/16 06/20/16 04:35 09:49 08:09 WBC Plt Count Creatinine 5.8 H 4.1 H Random Vancomycin 27.3 06/20/16 11:05 WBC 10.1 Plt Count 54 L Creatinine Random Vancomycin
[2016-06-21 10:58] LABS: INR 1.69 (0.87-1.13)
[2016-06-21] MEDS: ABILIFY PO SCH (11:29)
[2016-06-21] MEDS: REMERON PO SCH (11:30)
[2016-06-21] MEDS: PROzac PO SCH (11:30)
[2016-06-21] MEDS: COLACE PO SCH (11:30)
[2016-06-21] MEDS: LOPRESSOR PO SCH (11:30)
[2016-06-21] MEDS: HEPARIN SUB-Q SCH (11:31)
[2016-06-21] MEDS: DITROPAN PO SCH (11:31)
[2016-06-21 11:38] LABS: Anisocytosis 2+; Basophils % (Manual) 0 % (0.0-1.8); Blastocytes % (Manual) 0 %; Eosinophils % (Manual) 0 % (0.0-4.3); Macrocytosis 2+
[2016-06-21 11:39] LABS: Diff Status Complete; Poikilocytosis 1+; Polychromasia 1+
[2016-06-21 12:02] VITALS: BP 121/68
[2016-06-21] MEDS: PROTONIX PO SCH (12:49)
[2016-06-21 15:34] LABS: Heparin-Induced Platelet Antib Positive (Negative); Unfractionated Heparin Negative (Negative)
--- NOTE | 2016-06-22 07:42 | Vascular Lab Report ---
FISTULA DUPLEX EXAM: REASON FOR EXAM: AVF malfunction with ESRD. NOTE: THE FISTULA IS LOCATED IN THE LEFT LOWER EXTREMITY. COMMENTS ON THE FISTULA: This is a femoral artery inflow to saphenous vein outlflow graft. Morphologicaly, there is no large pseudoaneurysms. Echolucent areas around the graft represent some postoperative changes and fluid around the graft which is expected distal to surgery.. There is no velocity gradient to suggest focal stenosis. COMMENTS ON THE INFLOW: The inflow velocity is 62 cm/s which is adequate. COMMENTS ON THE OUTFLOW: The venous outflow is not measured.The volume is 1.034 mL/min which is optimal. IMPRESSION: No evidence of focal stenosis. The volume passing through the fistula is adequate. Normal postoperative changes around the graft.
== END 2016-06-21 14:05 | disposition home or self-care (01) | DRG 314 ==
LOC: ED 23:22 → 3A 06-16 14:08
PROVIDERS: ADMIT Internal Medicine; ATTEND Internal Medicine
PROC: 30233N1 Transfusion of Nonautologous Red Blood Cells into Peripheral Vein, Percutaneous Approach (ICD-10-PCS; principal; 2016-06-18)
PROC: 5A1D60Z (ICD-10-PCS; 2016-06-18)
DX: T82.7XXA Infection and inflammatory reaction due to other cardiac and vascular devices, implants and grafts, initial encounter (principal); A41.9 Sepsis, unspecified organism; N18.6 End stage renal disease; I12.0 Hypertensive chronic kidney disease with stage 5 chronic kidney disease or end stage renal disease; D63.1 Anemia in chronic kidney disease; F31.9 Bipolar disorder, unspecified; F20.9 Schizophrenia, unspecified; E11.22 Type 2 diabetes mellitus with diabetic chronic kidney disease; K21.9 Gastro-esophageal reflux disease without esophagitis; M19.90 Unspecified osteoarthritis, unspecified site; E78.5 Hyperlipidemia, unspecified; M10.9 Gout, unspecified; E03.9 Hypothyroidism, unspecified; E11.51 Type 2 diabetes mellitus with diabetic peripheral angiopathy without gangrene; R74.0 Nonspecific elevation of levels of transaminase and lactic acid dehydrogenase [LDH]; D69.6 Thrombocytopenia, unspecified; G40.909 Epilepsy, unspecified, not intractable, without status epilepticus; Z79.01 Long term (current) use of anticoagulants; Z79.899 Other long term (current) drug therapy; Z88.8 Allergy status to other drugs, medicaments and biological substances; Z99.2 Dependence on renal dialysis; Z87.442 Personal history of urinary calculi; Z98.890 Other specified postprocedural states; Z82.49 Family history of ischemic heart disease and other diseases of the circulatory system
CPT/HCPCS: 36415; 36430; 71010; 74176; 76700; 76857; 80048; 80053; 80074; 80202; 82140; 82550; 82553; 82607; 82962; 83735; 83880; 84484; 85007; 85025; 85027; 85610; 85730; 86022; 86850; 86900; 86901; 86920; 87040; 87497; 93005; 93010; 93990; 94640; 96365; 96367; J0692; J0885; J1644; J2543; J3370; J7030; J7040; J7050; P9016

== ENCOUNTER 2016-07-06 06:37 | Day surgery (SDC) | payer MEDICARE ==
[~2016-07-06 06:37] MED LIST changes: +ANCEF/STERILE WATER 2 GM/20 ML 2 GM/20 ML SYRINGE IV NR; -ANCEF/STERILE WATER 2 GM/20 ML 20 ML IV NR
[2016-07-06 07:30] LABS: Hematocrit 28.9 % (30.3-42.9); Hemoglobin 9.4 gm/dl (10.1-14.3); Mean Corpuscular HGB Conc 33 % (30-34); Mean Corpuscular Hemoglobin 40 pg (28-32); Red Blood Count 2.35 M/mm3 (3.65-5.03); White Blood Count 10.6 K/mm3 (4.5-11.0)
[2016-07-06 07:38] LABS: Mean Corpuscular Volume 123 fl (79-97); Red Cell Distribution Width 27.5 % (13.2-15.2)
[2016-07-06 07:39] LABS: Platelet Count 74 K/mm3 (140-440)
[2016-07-06 07:41] LABS: INR 1.5 (0.87-1.13)
[2016-07-06 07:42] LABS: Partial Thromboplastin Time 33.2 Sec. (24.2-36.6)
[2016-07-06] MEDS ORDERED: NACL 0.9% 100 ML ONE (08:09)
[2016-07-06] MEDS ORDERED: VERSED ONE (08:09)
[2016-07-06] MEDS ORDERED: NACL 0.9% 500 ML 1,000 ML ONE (08:10)
[2016-07-06] MEDS ORDERED: ANGIOMAX IV ONE (08:10)
[2016-07-06] MEDS ORDERED: SUBLIMAZE ONE (08:10)
[2016-07-06] MEDS ORDERED: WATER FOR INJ (PF) 10 ML ONE (08:10)
[2016-07-06] MEDS ORDERED: ANCEF/STERILE WATER 2 GM/20 ML 2 GM/20 ML SYRINGE IV ONE (08:11)
[2016-07-06] MEDS ORDERED: NACL 0.9% 250ML 250 ML ONE (08:40)
[2016-07-06] MEDS: XYLOCAINE 2% INFILTRATI ONE ×3 (08:59→09:31)
--- NOTE | 2016-07-06 09:50 | Short Stay Summary ---
Short Stay Documentation Date of service: 07/06/16 Narrative H&P: See H&P - History H&P: obtained from office - Allergies and Medications Current Medications: Allergies heparin Allergy (Verified 07/06/16 08:22) Unknown metformin Adverse Reaction (Intermediate, Verified 01/10/16 02:52) Vomiting colchicine [From Colcrys] Adverse Reaction (Verified 01/10/16 02:52) Unknown quetiapine fumarate [From Seroquel] Adverse Reaction (Verified 01/10/16 02:52) HYPER Insomnia Home Medications Medication Instructions Recorded Confirmed Last Taken Type ARIPiprazole [Abilify TAB] 15 mg PO DAILY 07/21/15 07/06/16 07/05/16 History Divalproex ER [Depakote ER] 500 mg PO QDAY 07/21/15 07/06/16 07/05/16 History Levothyroxine [Synthroid] 25 mcg PO QAM 07/21/15 07/06/16 07/05/16 History Oxybutynin [Ditropan] 5 mg PO BID 07/21/15 07/06/16 07/05/16 History Calcium Acetate 667 mg PO TID 11/01/15 07/06/16 07/05/16 History Docusate Sodium [Colace CAP] 1 tab PO DAILY 11/01/15 07/06/16 07/05/16 History Esomeprazole Magnesium [NexIUM] 40 mg PO QDAY 11/16/15 07/06/16 07/05/16 History Mirtazapine 15 mg PO QDAY 11/16/15 07/06/16 07/05/16 History Dicyclomine [Bentyl] 10 mg PO TID PRN #15 capsule 01/12/16 07/06/16 06/07/16 20: 00 Rx ALBUTEROL Inhaler [ProAir HFA 2 puff IH QID PRN #1 inhalation 02/07/16 07/06/16 05/24/16 Rx Inhaler] Warfarin [Coumadin] 2.5 mg PO QDAY 06/07/16 07/06/16 07/05/16 History Meclizine [Antivert] 12.5 mg PO DAILY PRN #30 tablet 06/14/16 07/06/16 07/05/16 Rx Metoprolol [Lopressor TAB] 12.5 mg PO BID #60 tablet 06/14/16 07/06/16 07/05/16 Rx Active Medications Cefazolin Sodium (Ancef/Sterile Water 2 Gm/20 Ml) 2 gm in 20 mls @ 0 mls/hr IV PREOP NR PRN Reason: Protocol Stop: 07/06/16 23:00 Last Admin: 07/06/16 08:59 Dose: 20 mls - Brief post op/procedure progress note Date of procedure: 07/06/16 Pre-op diagnosis: complications of dialysis access Post-op diagnosis: same Procedure: 1. Access Left AV Thigh Graft With 7 Iraqi Sheath Venous 2. Access Left AV Thigh Graft With 6 Iraqi Sheath Arterial 3. Fistulogram with Central Venogram 4. Percutaneous Mechanical Thrombectomy Of Left Thigh AV Graft with Trertolla Device 5. Angioplasty Of Venous Anastomosis with 7 x 40 Balloon 6. Angioplasty of Arterial Anastomosis with 4 X 60 Balloon 7. Removal of Right Femoral Permacath 8. Radiologic Supervision with Interpretation Anesthesia: local, other (iv sedation) Surgeon: EDWIGE GIRON Estimated blood loss: none Pathology: list (right femoral permacath) Specimen disposition: discarded Condition: stable - Disposition Condition at discharge: Good Disposition: DISCHARGED TO HOME OR SELFCARE Short Stay Discharge Plan Activity: no restrictions, other (okay to use a left thigh AV graft for dialysis access. Please have a claims adjuster supervisor access the graft.) Wound: open to air (left thigh wound), keep clean and dry, remove dressing ( right groin dressing in 24 hours)
--- NOTE | 2016-07-06 09:59 | Operative Report ---
Operative Report Operative Report: Date of Procedure: 07/06/2016 Pre-operative Diagnosis: Complications of Dialysis Access Post-operative Diagnosis: Same Procedure(s): 1. Access Left AV Thigh Graft With 7 [place] Sheath Venous 2. Access Left AV Thigh Graft With 6 [place] Sheath Arterial 3. Fistulogram with Central Venogram 4. Percutaneous Mechanical Thrombectomy Of Left Thigh AV Graft with Trertolla Device 5. Angioplasty Of Venous Anastomosis with 7 x 40 Balloon 6. Angioplasty of Arterial Anastomosis with 4 X 60 Balloon 7. Removal of Right Femoral Permacath 8. Radiologic Supervision with Interpretation Surgeon: Cal Costello M.D. Breaking Machine Operator: None Anesthesia: Local & IV Sedation EBL: Minimal Counts: Correct Complications: None Condition: Stable Findings: Left thigh AV graft completely thrombosed with approximately 50% stenosis at the venous anastomosis and 80% stenosis of the arterial anastomosis. After thrombectomy and angioplasty of each anastomosis no residual thrombus within the graft and an excellent thrill in the graft. Right groin permacath with tenderness around the catheter however there is no cellulitis or purulence appreciated. Specimen: Right Femoral Permacath Discarded Indication: The patient is a 36-year-old female with a history of end-stage renal disease was on hemodialysis through a right femoral permacath. She has been complaining of pain and tenderness in the left groin with a slight increase in her temperature. Additionally her left thigh graft thrombosed. She is in need of thrombectomy of the AV graft and removal of her permacath. She was given the risks, benefits, and alternative procedures and consented to procedure. Description of Procedure: The patient was brought to the quality lab assoc and laid in supine position. After she was adequately sedated her left groin was prepped and draped in normal sterile fashion. After anesthetizing the skin micropuncture technique was used to access the graft toward the venous outflow and a 7 Tristanian sheath was placed by Seldinger technique. A fistulogram was performed that demonstrated thrombus throughout the graft. A Trertolla device was inserted and used to morcellate the thrombus towards the venous outflow. The thrombus was then aspirated and a follow-up fistulogram demonstrated complete removal of thrombus from the venous portion of graft however there was approximately 50% stenosis at the venous anastomosis. This was treated with balloon angioplasty with a 7 x 40 balloon. The follow-up was opened was a widely patent venous outflow. I then anesthetized skin and used micropuncture technique to access the graft was arterial inflow. A 6 Tristanian sheath was placed by Seldinger technique. The Trertolla device was advanced to the arterial inflow leaving a thrombus cap. After using the device the thrombus was aspirated and then I advanced the Trertolla into the cap. After this was treated the graft developed a thrill. A vertebral catheter was advanced into the iliac artery and a fistulogram was performed that demonstrated approximately 80% stenosis of the common femoral artery at the anastomosis. Balloon angioplasty was performed with a 5 x 60 balloon with result of no residual stenosis. At this point all balloons and wires were removed and a 4-0 chromic in pursestring fashion was used to close the entry sites. The wounds were then dressed with Dermabond. I then brought the sterile field and prepped and draped the right femoral permacath in normal sterile fashion. Lidocaine was used to anesthetize the exit site. All sutures were removed and a hemostat was used to dissect the cuff away from surrounding tissue. The catheter was removed and pressure was held over the femoral vein to achieve hemostasis. Once hemostasis was achieved the exit site was dressed with 4 x 4 and Tegaderm. The patient tolerated both procedures well. All sponge, needle, instrument counts were correct. The patient was taken to the recovery area in stable condition.
[2016-07-06 10:22] LABS: Anisocytosis 2+; Basophils % (Manual) 0 % (0.0-1.8); Blastocytes % (Manual) 0 %; Eosinophils % (Manual) 0 % (0.0-4.3); Macrocytosis 2+
[2016-07-06 10:23] LABS: Diff Status Complete; Poikilocytosis Few; Polychromasia 1+
[2016-07-06 11:03] VITALS: BP 127/77
== END 2016-07-06 11:20 | disposition home or self-care (01) ==
LOC: OPU 06:37
PROVIDERS: ATTEND Surgery Vascular Surgery
DX: T82.868A Thrombosis due to vascular prosthetic devices, implants and grafts, initial encounter (principal); N18.6 End stage renal disease; Z99.2 Dependence on renal dialysis; Y83.2 Surgical operation with anastomosis, bypass or graft as the cause of abnormal reaction of the patient, or of later complication, without mention of misadventure at the time of the procedure
CPT/HCPCS: 36415; 36589; 36905; 82962; 84132; 85007; 85025; 85610; 85730; C1725; C1751; C1757; C1769; C1894; J0583; J0690; J2250; J3010; J7040; J7050; Q9967

== ENCOUNTER 2016-10-01 00:27 | Emergency (ER) | payer MEDICARE ==
[2016-10-01 01:03] LABS: Basophils % (Auto) 0.7 % (0.0-1.8); Eosinophils % (Auto) 0.8 % (0.0-4.3); Hematocrit 29.2 % (30.3-42.9); Hemoglobin 9.7 gm/dl (10.1-14.3); Mean Corpuscular HGB Conc 33 % (30-34); Mean Corpuscular Hemoglobin 40 pg (28-32); Platelet Count 117 K/mm3 (140-440); Red Blood Count 2.44 M/mm3 (3.65-5.03); White Blood Count 5.7 K/mm3 (4.5-11.0)
[2016-10-01 01:09] LABS: Mean Corpuscular Volume 119 fl (79-97); Red Cell Distribution Width 22.6 % (13.2-15.2)
[2016-10-01 01:21] LABS: BUN/Creatinine Ratio 3.72; Chloride 95.1 mmol/L (98-107); Potassium 3.8 mmol/L (3.6-5.0)
[2016-10-01] MEDS ORDERED: NACL 0.9% 500 ML 500 ML IV ONE (06:54)
[2016-10-01] MEDS ORDERED: ZOFRAN IV ONE (06:54)
--- NOTE | 2016-10-01 06:54 | Emergency Department Report ---
ED N/V/D HPI - General Chief complaint: Nausea/Vomiting/Diarrhea Stated complaint: CHEST PAIN/SOB/WEAK/VOMITING Time Seen by Provider: 10/01/16 06:23 Source: patient Mode of arrival: Ambulatory Limitations: No Limitations - History of Present Illness MD complaint: nausea, vomiting, diarrhea -: Gradual Description of Vomiting: watery, bilious Description of Diarrhea: water Associated Abdominal Pain: No Location: diffuse Radiation: none Severity: mild Quality: cramping Consistency: intermittent Improves with: none Worsens with: none Associated Symptoms: cough, malaise, nausea/vomiting. denies: myalgias, chest pain, diaphoresis, headaches, loss of appetite, rash, dysuria, shortness of breath, syncope - Related Data Previous Rx's Medication Instructions Recorded Last Taken Type ALBUTEROL Inhaler [ProAir HFA 2 puff IH QID PRN #1 inhalation 02/07/16 05/24/16 Rx Inhaler] ARIPiprazole [Abilify TAB] 15 mg PO DAILY #30 tablet 08/10/16 Unknown Rx Calcium Acetate 667 mg PO TID #90 capsule 08/10/16 Unknown Rx Dicyclomine [Bentyl] 10 mg PO TID PRN #15 capsule 08/10/16 Unknown Rx Divalproex ER [Depakote ER] 500 mg PO QDAY #30 tablet 08/10/16 Unknown Rx Docusate Sodium [Colace CAP] 1 tab PO DAILY #30 capsule 08/10/16 Unknown Rx Esomeprazole Magnesium [NexIUM] 40 mg PO QDAY #30 capsule. 08/10/16 Unknown Rx Levothyroxine [Synthroid] 25 mcg PO QAM #30 tablet 08/10/16 Unknown Rx Meclizine [Antivert] 12.5 mg PO DAILY PRN #30 tablet 08/10/16 Unknown Rx Midodrine [Proamatine] 2.5 mg PO Q8HR #90 tablet 08/10/16 Unknown Rx Mirtazapine [Remeron] 15 mg PO QDAY #30 tablet 08/10/16 Unknown Rx Oxybutynin [Ditropan] 5 mg PO BID #60 tablet 08/10/16 Unknown Rx Warfarin [Coumadin] 1 mg PO DAILY@1700 #30 tablet 08/10/16 Unknown Rx Warfarin [Coumadin] 2 mg PO QDAY #30 tablet 08/10/16 Unknown Rx Ondansetron [Zofran Odt] 4 mg PO TID #12 tab.rapdis 10/01/16 Unknown Rx Allergies Allergy/AdvReac Type Severity Reaction Status Date / Time aspirin Allergy Unknown Verified 10/01/16 00:44 heparin Allergy Unknown Verified 07/06/16 08:22 metformin AdvReac Intermediate Vomiting Verified 01/10/16 02:52 colchicine [From Colcrys] AdvReac Unknown Verified 01/10/16 02:52 quetiapine fumarate AdvReac HYPER Verified 01/10/16 02:52 [From Seroquel] ED Review of Systems ROS: Stated complaint: CHEST PAIN/SOB/WEAK/VOMITING Other details as noted in HPI Comment: All other systems reviewed and negative ED Past Medical Hx - Past Medical History Previous Medical History?: Yes Hx Hypertension: Yes Hx Heart Attack/AMI: No Hx Congestive Heart Failure: No Hx Diabetes: Yes (Diet control) Hx GERD: Yes Hx Renal Disease: Yes (DIALYSIS Tue, Thurs, & Sat) Hx Arthritis: Yes Hx Kidney Stones: Yes Hx Psychiatric Treatment: Yes (bipolar/ SCHIZOPHRENIA) Hx HIV: No Additional medical history: Gout; thyroid, hyperlipedemia - Surgical History Past Surgical History?: Yes Additional Surgical History: Foot surgery. PERMA CATH RIGHT LEG. AV graft placement to right arm. graft to left leg. - Social History Smoking Status: Never Smoker - Medications Home Medications: Home Medications Medication Instructions Recorded Confirmed Last Taken Type ALBUTEROL Inhaler [ProAir HFA 2 puff IH QID PRN #1 inhalation 02/07/16 10/01/16 05/24/16 Rx Inhaler] ARIPiprazole [Abilify TAB] 15 mg PO DAILY #30 tablet 08/10/16 10/01/16 Unknown Rx Calcium Acetate 667 mg PO TID #90 capsule 08/10/16 10/01/16 Unknown Rx Dicyclomine [Bentyl] 10 mg PO TID PRN #15 capsule 08/10/16 10/01/16 Unknown Rx Divalproex ER [Depakote ER] 500 mg PO QDAY #30 tablet 08/10/16 10/01/16 Unknown Rx Docusate Sodium [Colace CAP] 1 tab PO DAILY #30 capsule 08/10/16 10/01/16 Unknown Rx Esomeprazole Magnesium [NexIUM] 40 mg PO QDAY #30 capsule. 08/10/16 10/01/16 Unknown Rx Levothyroxine [Synthroid] 25 mcg PO QAM #30 tablet 08/10/16 10/01/16 Unknown Rx Meclizine [Antivert] 12.5 mg PO DAILY PRN #30 tablet 08/10/16 10/01/16 Unknown Rx Midodrine [Proamatine] 2.5 mg PO Q8HR #90 tablet 08/10/16 10/01/16 Unknown Rx Mirtazapine [Remeron] 15 mg PO QDAY #30 tablet 08/10/16 10/01/16 Unknown Rx Oxybutynin [Ditropan] 5 mg PO BID #60 tablet 08/10/16 10/01/16 Unknown Rx Warfarin [Coumadin] 1 mg PO DAILY@1700 #30 tablet 08/10/16 10/01/16 Unknown Rx Warfarin [Coumadin] 2 mg PO QDAY #30 tablet 08/10/16 10/01/16 Unknown Rx Ondansetron [Zofran Odt] 4 mg PO TID #12 tab.rapdis 10/01/16 Unknown Rx ED Physical Exam - General Limitations: No Limitations General appearance: alert, in no apparent distress - Head Head exam: Present: atraumatic, normocephalic - Eye Eye exam: Present: normal appearance - ENT ENT exam: Present: mucous membranes moist - Neck Neck exam: Present: normal inspection - Respiratory Respiratory exam: Present: normal lung sounds bilaterally. Absent: respiratory distress - Cardiovascular Cardiovascular Exam: Present: regular rate, normal rhythm. Absent: systolic murmur, diastolic murmur, rubs, gallop - GI/Abdominal GI/Abdominal exam: Present: soft, normal bowel sounds - Extremities Exam Extremities exam: Present: normal inspection - Back Exam Back exam: Present: normal inspection - Neurological Exam Neurological exam: Present: alert, oriented X3 - Psychiatric Psychiatric exam: Present: normal affect, normal mood - Skin Skin exam: Present: warm, dry, intact, normal color. Absent: rash ED Course Vital Signs 10/01/16 10/01/16 00:38 06:34 Temperature 98.3 F 97 F L Pulse Rate 114 H 95 H Respiratory 18 18 Rate Blood Pressure 149/93 Blood Pressure 129/78 [Left] O2 Sat by Pulse 96 96 Oximetry ED Medical Decision Making - Lab Data Result diagrams: 10/01/16 00:48 10/01/16 00:48 - Medical Decision Making patient been doing well, tolerating po here in the er , labs unchanged , xray unchanged , no reason for admission at this time,. will dc and follow up. has appointment for dialysis tomorrow. Critical care attestation.: If time is entered above; I have spent that time in minutes in the direct care of this critically ill patient, excluding procedure time. ED Disposition Clinical Impression: ESRD (end stage renal disease) on dialysis, Dehydration, Vomiting Disposition: DISCHARGED TO HOME OR SELFCARE Is pt being admited?: No Does the pt Need Aspirin: No Condition: Good Prescriptions: Ondansetron [Zofran Odt] 4 mg PO TID #12 tab.rapdis Referrals: PRIMARY CARE, [Primary Care Provider] - 3-5 Days Time of Disposition: 09:48
[2016-10-01 10:19] VITALS: BP 120/68
== END 2016-10-01 10:31 | disposition home or self-care (01) ==
LOC: ED 00:27
DX: I12.0 Hypertensive chronic kidney disease with stage 5 chronic kidney disease or end stage renal disease (principal); N18.6 End stage renal disease; E86.0 Dehydration; Z99.2 Dependence on renal dialysis; E11.9 Type 2 diabetes mellitus without complications; K21.9 Gastro-esophageal reflux disease without esophagitis; M19.90 Unspecified osteoarthritis, unspecified site; F31.9 Bipolar disorder, unspecified; F20.9 Schizophrenia, unspecified
CPT/HCPCS: 36415; 80048; 84484; 85025; 93005; 93010; 96361; 96374; 99284; J2405; J7040

== ENCOUNTER 2017-03-10 15:32 | Emergency (ER) | payer MEDICARE ==
[2017-03-10 17:01] LABS: Albumin 3.8 g/dL (3.9-5); Albumin/Globulin Ratio 1.4 %; Calcium 8.7 mg/dL (8.4-10.2); Chloride 96.2 mmol/L (98-107); Potassium 4.2 mmol/L (3.6-5.0); Total Protein 6.5 g/dL (6.3-8.2)
[2017-03-10 17:02] LABS: Basophils % (Auto) 0.4 % (0.0-1.8); Eosinophils % (Auto) 0.7 % (0.0-4.3); Hematocrit 26.5 % (30.3-42.9); Hemoglobin 8.8 gm/dl (10.1-14.3); Mean Corpuscular HGB Conc 33 % (30-34); Mean Corpuscular Hemoglobin 37 pg (28-32); Platelet Count 140 K/mm3 (140-440); Red Blood Count 2.39 M/mm3 (3.65-5.03); White Blood Count 9.2 K/mm3 (4.5-11.0)
[2017-03-10 17:04] LABS: Mean Corpuscular Volume 111 fl (79-97); Red Cell Distribution Width 20.6 % (13.2-15.2)
--- NOTE | 2017-03-10 20:46 | Emergency Department Report ---
ED General Adult HPI - General Chief complaint: Abdominal Pain Stated complaint: BODY ACHES Time Seen by Provider: 03/10/17 20:03 Source: patient Mode of arrival: Ambulatory Limitations: No Limitations - History of Present Illness Initial comments: 36-year-old female with multiple medical problems here with complaint of diffuse pain all over and itching all over. Denies fevers chills. States symptoms started for the last 4 days. Said similar symptoms in the past. She states that her dialysis access feels similar. -: days(s) (4) Radiation: back, extremity, abdomen Severity scale (0 -10): 10 Quality: burning, aching Associated Symptoms: denies other symptoms - Related Data Previous Rx's Medication Instructions Recorded Last Taken Type ALBUTEROL Inhaler [ProAir HFA 2 puff IH QID PRN #1 inhalation 02/07/16 05/24/16 Rx Inhaler] ARIPiprazole [Abilify TAB] 15 mg PO DAILY #30 tablet 08/10/16 Unknown Rx Calcium Acetate 667 mg PO TID #90 capsule 08/10/16 Unknown Rx Dicyclomine [Bentyl] 10 mg PO TID PRN #15 capsule 08/10/16 Unknown Rx Divalproex ER [Depakote ER] 500 mg PO QDAY #30 tablet 08/10/16 Unknown Rx Docusate Sodium [Colace CAP] 1 tab PO DAILY #30 capsule 08/10/16 Unknown Rx Levothyroxine [Synthroid] 25 mcg PO QAM #30 tablet 08/10/16 Unknown Rx Meclizine [Antivert] 12.5 mg PO DAILY PRN #30 tablet 08/10/16 Unknown Rx Mirtazapine [Remeron] 15 mg PO QDAY #30 tablet 08/10/16 Unknown Rx Oxybutynin [Ditropan] 5 mg PO BID #60 tablet 08/10/16 Unknown Rx Warfarin [Coumadin] 2 mg PO QDAY #10 tablet 12/12/16 Unknown Rx oxyCODONE /ACETAMINOPHEN [Percocet 1 tab PO Q6HR PRN #14 tablet 12/12/16 Unknown Rx 5/325 mg] Fluticasone [Flonase] 200 mcg NS QDAY bottle 02/27/17 Unknown Rx Pantoprazole [Protonix TAB] 40 mg PO DAILY tablet 02/27/17 Unknown Rx Prednisone [predniSONE 10 mg 10 mg PO .TAPER #1 tab.ds.pk 02/27/17 Unknown Rx (6-Day Pack, 21 Tabs)] hydrALAZINE [Apresoline TAB] 50 mg PO Q8HR #90 tab 02/27/17 Unknown Rx Allergies Allergy/AdvReac Type Severity Reaction Status Date / Time aspirin Allergy Unknown Verified 10/01/16 00:44 heparin Allergy Unknown Verified 07/06/16 08:22 metformin AdvReac Intermediate Vomiting Verified 01/10/16 02:52 colchicine [From Colcrys] AdvReac Unknown Verified 01/10/16 02:52 quetiapine fumarate AdvReac HYPER Verified 01/10/16 02:52 [From Seroquel] ED Review of Systems ROS: Stated complaint: BODY ACHES Other details as noted in HPI Comment: All other systems reviewed and negative Constitutional: denies: chills, fever Respiratory: denies: cough, shortness of breath, wheezing Cardiovascular: denies: chest pain, palpitations Endocrine: no symptoms reported Gastrointestinal: abdominal pain. denies: nausea, diarrhea Genitourinary: denies: urgency, dysuria, discharge Musculoskeletal: denies: back pain, joint swelling, arthralgia Skin: rash, pruritus. denies: lesions Neurological: denies: headache, weakness, paresthesias Psychiatric: as per HPI ED Past Medical Hx - Past Medical History Hx Hypertension: Yes Hx Heart Attack/AMI: No Hx Congestive Heart Failure: No Hx Diabetes: Yes (Diet control) Hx GERD: Yes Hx Renal Disease: Yes (DIALYSIS Tue, Thurs, & Sat) Hx Arthritis: Yes Hx Kidney Stones: Yes Hx Psychiatric Treatment: Yes (bipolar/ SCHIZOPHRENIA) Hx Asthma: No (doesnt know) Hx HIV: No Additional medical history: Gout; thyroid, hyperlipedemia - Surgical History Additional Surgical History: Foot surgery. PERMA CATH RIGHT LEG. AV graft placement to right arm. graft to left leg. - Social History Smoking Status: Never Smoker - Medications Home Medications: Home Medications Medication Instructions Recorded Confirmed Last Taken Type ALBUTEROL Inhaler [ProAir HFA 2 puff IH QID PRN #1 inhalation 02/07/16 02/20/17 05/24/16 Rx Inhaler] ARIPiprazole [Abilify TAB] 15 mg PO DAILY #30 tablet 08/10/16 02/20/17 Unknown Rx Calcium Acetate 667 mg PO TID #90 capsule 08/10/16 02/20/17 Unknown Rx Dicyclomine [Bentyl] 10 mg PO TID PRN #15 capsule 08/10/16 02/20/17 Unknown Rx Divalproex ER [Depakote ER] 500 mg PO QDAY #30 tablet 08/10/16 02/20/17 Unknown Rx Docusate Sodium [Colace CAP] 1 tab PO DAILY #30 capsule 08/10/16 02/20/17 Unknown Rx Levothyroxine [Synthroid] 25 mcg PO QAM #30 tablet 08/10/16 02/20/17 Unknown Rx Meclizine [Antivert] 12.5 mg PO DAILY PRN #30 tablet 08/10/16 02/20/17 Unknown Rx Mirtazapine [Remeron] 15 mg PO QDAY #30 tablet 08/10/16 02/20/17 Unknown Rx Oxybutynin [Ditropan] 5 mg PO BID #60 tablet 08/10/16 02/20/17 Unknown Rx Warfarin [Coumadin] 2 mg PO QDAY #10 tablet 12/12/16 02/20/17 Unknown Rx oxyCODONE /ACETAMINOPHEN [Percocet 1 tab PO Q6HR PRN #14 tablet 12/12/16 Unknown Rx 5/325 mg] Fluticasone [Flonase] 200 mcg NS QDAY bottle 02/27/17 Unknown Rx Pantoprazole [Protonix TAB] 40 mg PO DAILY tablet 02/27/17 Unknown Rx Prednisone [predniSONE 10 mg 10 mg PO .TAPER #1 tab.ds.pk 02/27/17 Unknown Rx (6-Day Pack, 21 Tabs)] hydrALAZINE [Apresoline TAB] 50 mg PO Q8HR #90 tab 02/27/17 Unknown Rx ED Physical Exam - General Limitations: No Limitations General appearance: alert, in no apparent distress, obese - Head Head exam: Present: atraumatic, normocephalic - Eye Eye exam: Present: normal appearance. Absent: scleral icterus, conjunctival injection - Neck Neck exam: Present: normal inspection - Respiratory Respiratory exam: Present: normal lung sounds bilaterally. Absent: respiratory distress, wheezes - Cardiovascular Cardiovascular Exam: Present: normal rhythm, tachycardia. Absent: systolic murmur, diastolic murmur, rubs, gallop - GI/Abdominal GI/Abdominal exam: Present: soft, tenderness (diffuse), normal bowel sounds. Absent: guarding, rebound - Extremities Exam Extremities exam: Present: normal inspection, other (dialysis access left upper thigh no obvious sign of infection) - Back Exam Back exam: Present: normal inspection - Neurological Exam Neurological exam: Present: alert, oriented X3 - Psychiatric Psychiatric exam: Present: normal affect, normal mood - Skin Skin exam: Present: warm, dry, intact, normal color. Absent: rash ED Course Vital Signs 03/10/17 03/10/17 03/10/17 16:16 19:34 19:42 Temperature 97.9 F Pulse Rate 113 H 99 H Respiratory 18 25 H 18 Rate Blood Pressure 123/68 Blood Pressure 123/68 [Left] O2 Sat by Pulse 99 100 Oximetry 03/10/17 19:45 Temperature Pulse Rate 83 Respiratory 21 Rate Blood Pressure 125/41 Blood Pressure [Left] O2 Sat by Pulse 99 Oximetry ED Medical Decision Making - Lab Data Result diagrams: 03/10/17 16:23 03/10/17 16:23 Laboratory Results - last 24 hr 03/10/17 03/10/17 16:23 16:23 WBC 9.2 RBC 2.39 L Hgb 8.8 L Hct 26.5 L MCV 111 H MCH 37 H MCHC 33 RDW 20.6 H Plt Count 140 Lymph % (Auto) 13.3 L [place] % (Auto) 10.4 H Eos % (Auto) 0.7 Baso % (Auto) 0.4 Lymph # 1.2 [place] # 0.9 H Eos # 0.1 Baso # 0.0 Seg Neutrophils % 75.2 H Seg Neutrophils # 6.9 Sodium 138 Potassium 4.2 Chloride 96.2 L Carbon Dioxide 22 Anion Gap 24 BUN 30 H Creatinine 5.1 H Estimated GFR 10 BUN/Creatinine Ratio 6 Glucose 131 H Calcium 8.7 Total Bilirubin 1.00 AST 10 ALT 7 Alkaline Phosphatase 191 H Total Protein 6.5 Albumin 3.8 L Albumin/Globulin Ratio 1.4 Lipase 32 - Medical Decision Making There is diffuse pain all over. No obvious signs of infection or rash. Patient does not appear volume overloaded. Patient recent dialysis yesterday. Likely discharge and have her follow up after pain control here in the emergency department. Pain slightly improved. I believe this is likely a chronic process. Plan to discharge patient home. Portions of this chart were dictated with dictation software. There may be dictation errors contained within this note. Critical care attestation.: If time is entered above; I have spent that time in minutes in the direct care of this critically ill patient, excluding procedure time. ED Disposition Clinical Impression: Morbid obesity, Abdominal pain Disposition: DC-01 TO HOME OR SELFCARE Is pt being admited?: No Condition: Stable Instructions: Abdominal Pain (ED) Referrals: PRIMARY CARE, [Primary Care Provider] - 3-5 Days
[2017-03-10] MEDS: BENADRYL PO ONE (21:07)
[2017-03-10] MEDS: MORPHINE IM ONE (21:08)
[2017-03-10 22:22] VITALS: BP 98/52
== END 2017-03-10 22:28 | disposition home or self-care (01) ==
LOC: ED 15:32
DX: R10.9 Unspecified abdominal pain (principal); E66.01 Morbid (severe) obesity due to excess calories
CPT/HCPCS: 36415; 80053; 83690; 85025; 96372; 99283; J2270

== ENCOUNTER 2017-03-13 10:29 | Outpatient (CLI) | payer MEDICARE ==
--- NOTE | 2017-03-13 15:15 | Cat Scan Report ---
CT SCAN OF THE ABDOMEN AND PELVIS WITH CONTRAST: HISTORY: End-stage renal disease. TECHNIQUE: Helical CT in 1.25mm intervals following IV contrast. Sagittal and coronal reconstructions. FINDINGS: The liver is normal in size and is without focal defect. No gallstones or biliary dilatation are noted. The spleen and pancreas demonstrate a normal size and attenuation with no evidence of abnormal mass. Both kidneys are mildly atrophic measuring 7 x 6 cm in length. There is no evidence for focal renal lesion or hydronephrosis. The ureters are normal caliber. The bladder is empty. The adrenal glands are normal. There is no intestinal obstruction or ascites. The appendix is not confidently identified, correlate with surgical history.. The abdominal aorta is normal. The uterus and adnexa are within normal limits. There is no evidence of peritoneal air or fluid. There is no evidence of any abnormal masses or fluid collections within the pelvis. No adenopathy is identified. IMPRESSION: Mild bilateral renal atrophy. Otherwise, unremarkable exam of the abdomen and pelvis.
== END 2017-03-13 10:30 | disposition home or self-care (01) ==
LOC: CT 10:29
PROVIDERS: ATTEND Surgery Vascular Surgery
DX: I12.0 Hypertensive chronic kidney disease with stage 5 chronic kidney disease or end stage renal disease (principal); N18.6 End stage renal disease; E10.22 Type 1 diabetes mellitus with diabetic chronic kidney disease; I87.1 Compression of vein
CPT/HCPCS: 74177; Q9967

== ENCOUNTER 2017-03-15 00:28 | Emergency (ER) | payer MEDICARE ==
[2017-03-15 01:55] LABS: Hematocrit 23.4 % (30.3-42.9); Hemoglobin 7.7 gm/dl (10.1-14.3); Mean Corpuscular HGB Conc 33 % (30-34); Mean Corpuscular Hemoglobin 36 pg (28-32); Platelet Count 173 K/mm3 (140-440); Red Blood Count 2.11 M/mm3 (3.65-5.03); White Blood Count 8.1 K/mm3 (4.5-11.0)
[2017-03-15 02:01] LABS: Mean Corpuscular Volume 111 fl (79-97); Red Cell Distribution Width 21.3 % (13.2-15.2)
[2017-03-15 02:05] LABS: Calcium 8.5 mg/dL (8.4-10.2); Chloride 93.5 mmol/L (98-107); Potassium 4.7 mmol/L (3.6-5.0)
[2017-03-15 03:08] LABS: Anisocytosis 1+; Basophils % (Manual) 0 % (0.0-1.8); Blastocytes % (Manual) 0 %; Diff Status Complete; Eosinophils % (Manual) 0 % (0.0-4.3); Macrocytosis 1+; Platelet Estimate Consistent w Auto
--- NOTE | 2017-03-15 03:36 | XRay Report ---
FINAL REPORT EXAM: XR CHEST ROUTINE 2V HISTORY: Shortness of breath COMPARISON: February 07, 2016 FINDINGS: Frontal lateral views the chest obtained. Heart upper limits of normal in size. Tunneled right IJ line remains in place. No dense consolidation or effusion. No pneumothorax. Bony structures are grossly intact. IMPRESSION: No grossly acute findings.
[2017-03-15] MEDS ORDERED: TYLENOL PO ONE ×2 (13:40→19:34)
[2017-03-15] MEDS ORDERED: TYLENOL ONE (19:36)
[2017-03-15 20:12] LABS: Hematocrit 26.3 % (30.3-42.9); Hemoglobin 8.6 gm/dl (10.1-14.3); Mean Corpuscular HGB Conc 33 % (30-34); Mean Corpuscular Hemoglobin 36 pg (28-32); Platelet Count 206 K/mm3 (140-440); Red Blood Count 2.38 M/mm3 (3.65-5.03); White Blood Count 8.9 K/mm3 (4.5-11.0)
[2017-03-15 20:17] LABS: Mean Corpuscular Volume 111 fl (79-97); Red Cell Distribution Width 21.1 % (13.2-15.2)
[2017-03-15] MEDS ORDERED: SUBLIMAZE IV ONE (20:56)
[2017-03-15] MEDS ORDERED: NEURONTIN PO ONE (20:57)
--- NOTE | 2017-03-15 21:02 | Emergency Department Report ---
ED General Adult HPI - General Chief complaint: Dyspnea/Respdistress Stated complaint: AYO, LEG PAIN Time Seen by Provider: 03/15/17 20:54 Source: patient Mode of arrival: Ambulatory Limitations: No Limitations - History of Present Illness Initial comments: Patient is a 36-year-old female past medical history of end-stage renal disease on dialysis Saturday who presents with generalized body pain and back pain. She states that the pain has been going on for the last 3 weeks she was recently admitted to the hospital about 2 days ago. 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 Patient denies having any nausea or vomiting or any chest pain or shortness of breath. Patient states her back pain as a 10 out of 10 and radiates down to her legs leaning forward makes it worse nothing makes it better. Severity scale (0 -10): 10 - Related Data Previous Rx's Medication Instructions Recorded Last Taken Type ALBUTEROL Inhaler [ProAir HFA 2 puff IH QID PRN #1 inhalation 02/07/16 05/24/16 Rx Inhaler] ARIPiprazole [Abilify TAB] 15 mg PO DAILY #30 tablet 08/10/16 Unknown Rx Calcium Acetate 667 mg PO TID #90 capsule 08/10/16 Unknown Rx Dicyclomine [Bentyl] 10 mg PO TID PRN #15 capsule 08/10/16 Unknown Rx Divalproex ER [Depakote ER] 500 mg PO QDAY #30 tablet 08/10/16 Unknown Rx Docusate Sodium [Colace CAP] 1 tab PO DAILY #30 capsule 08/10/16 Unknown Rx Levothyroxine [Synthroid] 25 mcg PO QAM #30 tablet 08/10/16 Unknown Rx Meclizine [Antivert] 12.5 mg PO DAILY PRN #30 tablet 08/10/16 Unknown Rx Mirtazapine [Remeron] 15 mg PO QDAY #30 tablet 08/10/16 Unknown Rx Oxybutynin [Ditropan] 5 mg PO BID #60 tablet 08/10/16 Unknown Rx Warfarin [Coumadin] 2 mg PO QDAY #10 tablet 12/12/16 Unknown Rx oxyCODONE /ACETAMINOPHEN [Percocet 1 tab PO Q6HR PRN #14 tablet 12/12/16 Unknown Rx 5/325 mg] Fluticasone [Flonase] 200 mcg NS QDAY bottle 02/27/17 Unknown Rx Pantoprazole [Protonix TAB] 40 mg PO DAILY tablet 02/27/17 Unknown Rx Prednisone [predniSONE 10 mg 10 mg PO .TAPER #1 tab.ds.pk 02/27/17 Unknown Rx (6-Day Pack, 21 Tabs)] hydrALAZINE [Apresoline TAB] 50 mg PO Q8HR #90 tab 02/27/17 Unknown Rx Allergies Allergy/AdvReac Type Severity Reaction Status Date / Time aspirin Allergy Unknown Verified 10/01/16 00:44 heparin Allergy Unknown Verified 07/06/16 08:22 metformin AdvReac Intermediate Vomiting Verified 01/10/16 02:52 colchicine [From Colcrys] AdvReac Unknown Verified 01/10/16 02:52 quetiapine fumarate AdvReac HYPER Verified 01/10/16 02:52 [From Seroquel] ED Review of Systems ROS: Stated complaint: AYO, LEG PAIN Other details as noted in HPI Constitutional: denies: chills, fever Eyes: denies: eye pain, eye discharge, vision change ENT: denies: ear pain, throat pain Respiratory: denies: cough, shortness of breath, wheezing Cardiovascular: denies: chest pain, palpitations Endocrine: no symptoms reported Gastrointestinal: denies: abdominal pain, nausea, diarrhea Genitourinary: denies: urgency, dysuria, discharge Musculoskeletal: denies: back pain, joint swelling, arthralgia Skin: denies: rash, lesions Neurological: denies: headache, weakness, paresthesias Psychiatric: denies: anxiety, depression Hematological/Lymphatic: denies: easy bleeding, easy bruising ED Past Medical Hx - Past Medical History Previous Medical History?: Yes Hx Hypertension: Yes Hx Heart Attack/AMI: No Hx Congestive Heart Failure: No Hx Diabetes: Yes (Diet control) Hx GERD: Yes Hx Renal Disease: Yes (DIALYSIS Tue, Thurs, & Sat) Hx Arthritis: Yes Hx Kidney Stones: Yes Hx Psychiatric Treatment: Yes (bipolar/ SCHIZOPHRENIA) Hx Asthma: (doesnt know) Hx HIV: No Additional medical history: Gout; thyroid, hyperlipedemia - Surgical History Past Surgical History?: Yes Additional Surgical History: Foot surgery. PERMA CATH RIGHT LEG. AV graft placement to right arm. graft to left leg. - Social History Smoking Status: Never Smoker Substance Use Type: None - Medications Home Medications: Home Medications Medication Instructions Recorded Confirmed Last Taken Type ALBUTEROL Inhaler [ProAir HFA 2 puff IH QID PRN #1 inhalation 02/07/16 02/20/17 05/24/16 Rx Inhaler] ARIPiprazole [Abilify TAB] 15 mg PO DAILY #30 tablet 08/10/16 02/20/17 Unknown Rx Calcium Acetate 667 mg PO TID #90 capsule 08/10/16 02/20/17 Unknown Rx Dicyclomine [Bentyl] 10 mg PO TID PRN #15 capsule 08/10/16 02/20/17 Unknown Rx Divalproex ER [Depakote ER] 500 mg PO QDAY #30 tablet 08/10/16 02/20/17 Unknown Rx Docusate Sodium [Colace CAP] 1 tab PO DAILY #30 capsule 08/10/16 02/20/17 Unknown Rx Levothyroxine [Synthroid] 25 mcg PO QAM #30 tablet 08/10/16 02/20/17 Unknown Rx Meclizine [Antivert] 12.5 mg PO DAILY PRN #30 tablet 08/10/16 02/20/17 Unknown Rx Mirtazapine [Remeron] 15 mg PO QDAY #30 tablet 08/10/16 02/20/17 Unknown Rx Oxybutynin [Ditropan] 5 mg PO BID #60 tablet 08/10/16 02/20/17 Unknown Rx Warfarin [Coumadin] 2 mg PO QDAY #10 tablet 12/12/16 02/20/17 Unknown Rx oxyCODONE /ACETAMINOPHEN [Percocet 1 tab PO Q6HR PRN #14 tablet 12/12/16 Unknown Rx 5/325 mg] Fluticasone [Flonase] 200 mcg NS QDAY bottle 02/27/17 Unknown Rx Pantoprazole [Protonix TAB] 40 mg PO DAILY tablet 02/27/17 Unknown Rx Prednisone [predniSONE 10 mg 10 mg PO .TAPER #1 tab.ds.pk 02/27/17 Unknown Rx (6-Day Pack, 21 Tabs)] hydrALAZINE [Apresoline TAB] 50 mg PO Q8HR #90 tab 02/27/17 Unknown Rx ED Physical Exam - General Limitations: No Limitations General appearance: alert, in no apparent distress - Head Head exam: Present: atraumatic, normocephalic - Eye Eye exam: Present: normal appearance - ENT ENT exam: Present: mucous membranes moist - Neck Neck exam: Present: normal inspection - Respiratory Respiratory exam: Present: normal lung sounds bilaterally. Absent: respiratory distress - Cardiovascular Cardiovascular Exam: Present: regular rate, normal rhythm. Absent: systolic murmur, diastolic murmur, rubs, gallop - GI/Abdominal GI/Abdominal exam: Present: soft, normal bowel sounds - Extremities Exam Extremities exam: Present: pedal edema (+2 tenderness over right thigh no signs of infection AV fistula has palpable thrill) - Back Exam Back exam: Present: normal inspection - Neurological Exam Neurological exam: Present: alert, oriented X3 - Psychiatric Psychiatric exam: Present: normal affect, normal mood - Skin Skin exam: Present: warm, dry, intact, normal color. Absent: rash ED Course Vital Signs 03/15/17 03/15/17 03/15/17 00:40 01:01 06:41 Temperature 98.7 F 98.2 F 97.9 F Pulse Rate 109 H 90 98 H Respiratory 20 12 14 Rate Blood Pressure 121/69 132/67 133/67 Blood Pressure [Left] O2 Sat by Pulse 96 96 96 Oximetry 03/15/17 03/15/17 03/15/17 13:50 14:50 19:27 Temperature 97.7 F Pulse Rate 92 H Respiratory 18 18 18 Rate Blood Pressure 134/85 Blood Pressure [Left] O2 Sat by Pulse 95 Oximetry 03/15/17 03/15/17 22:11 22:12 Temperature 98.1 F Pulse Rate 59 L 59 L Respiratory 18 Rate Blood Pressure Blood Pressure 124/80 [Left] O2 Sat by Pulse 99 Oximetry ED Medical Decision Making - Lab Data Result diagrams: 03/15/17 19:47 03/15/17 19:47 Lab Results 03/15/17 03/15/17 03/15/17 Range/Units 01:25 01:25 19:47 WBC 8.1 8.9 (4.5-11.0) K/mm3 RBC 2.11 L 2.38 L (3.65-5.03) M/mm3 Hgb 7.7 L 8.6 L (10.1-14.3) gm/dl Hct 23.4 L 26.3 L (30.3-42.9) % MCV 111 H 111 H (79-97) fl MCH 36 H 36 H (28-32) pg MCHC 33 33 (30-34) % RDW 21.3 H 21.1 H (13.2-15.2) % Plt Count 173 206 (140-440) K/mm3 Add Manual Diff Complete Total Counted 100 Seg Neuts % (Manual) 70.0 (40.0-70.0) % Band Neutrophils % 6.0 % Lymphocytes % (Manual) 9.0 L (13.4-35.0) % Reactive Lymphs % (Man) 0 % Monocytes % (Manual) 15.0 H (0.0-7.3) % Eosinophils % (Manual) 0 (0.0-4.3) % Basophils % (Manual) 0 (0.0-1.8) % Metamyelocytes % 0 % Myelocytes % 0 % Promyelocytes % 0 % Blast Cells % 0 % Nucleated RBC % 3.0 H (0.0-0.9) % Seg Neutrophils # Man 5.7 (1.8-7.7) K/mm3 Band Neutrophils # 0.5 K/mm3 Lymphocytes # (Manual) 0.7 L (1.2-5.4) K/mm3 Abs React Lymphs (Man) 0.0 K/mm3 Monocytes # (Manual) 1.2 H (0.0-0.8) K/mm3 Eosinophils # (Manual) 0.0 (0.0-0.4) K/mm3 Basophils # (Manual) 0.0 (0.0-0.1) K/mm3 Metamyelocytes # 0.0 K/mm3 Myelocytes # 0.0 K/mm3 Promyelocytes # 0.0 K/mm3 Blast Cells # 0.0 K/mm3 WBC Morphology Not Reportable Hypersegmented Neuts Not Reportable Hyposegmented Neuts Not Reportable Hypogranular Neuts Not Reportable Smudge Cells Not Reportable Toxic Granulation Not Reportable Toxic Vacuolation Not Reportable Dohle Bodies Not Reportable Pelger-Huet Anomaly Not Reportable Le Rods Not Reportable Platelet Estimate Consistent w auto Clumped Platelets Not Reportable Plt Clumps, EDTA Not Reportable Large Platelets Not Reportable Giant Platelets Not Reportable Platelet Satelliting Not Reportable Plt Morphology Comment Not Reportable RBC Morphology Not Reportable Dimorphic RBCs Not Reportable Polychromasia Not Reportable Hypochromasia Not Reportable Poikilocytosis Not Reportable Anisocytosis 1+ Microcytosis Not Reportable Macrocytosis 1+ Spherocytes Not Reportable Pappenheimer Bodies Not Reportable Sickle Cells Not Reportable Target Cells Not Reportable Tear Drop Cells Not Reportable Ovalocytes Not Reportable Helmet Cells Not Reportable [place] Bodies Not Reportable [place] Rings Not Reportable [place] Cells Not Reportable Bite Cells Not Reportable Crenated Cell Not Reportable Elliptocytes Not Reportable Acanthocytes (Spur) Not Reportable Rouleaux Not Reportable Hemoglobin C Crystals Not Reportable Schistocytes Not Reportable Malaria parasites Not Reportable Abdiel Bodies Not Reportable Hem Pathologist Commnt No Sodium 137 (137-145) mmol/L Potassium 4.7 (3.6-5.0) mmol/L Chloride 93.5 L (98-107) mmol/L Carbon Dioxide 22 (22-30) mmol/L Anion Gap 26 mmol/L BUN 35 H (7-17) mg/dL Creatinine 5.8 H (0.7-1.2) mg/dL Estimated GFR 8 ml/min BUN/Creatinine Ratio 6 % Glucose 145 H (65-100) mg/dL Calcium 8.5 (8.4-10.2) mg/dL - Medical Decision Making Chief medical diagnosis: Lumbar sacral strain Differential medical diagnosis: Neuropathy, electrolyte abnormality, cellulitis I will get CBC, CMP, IV pain medication, oral pain medication Patient has no signs of infection on her graft and her electrolytes are not much change from her baseline from her previous admission when she was discharged. I will treat patient's pain and I will send patient back home. Discussed plan with patient patient agrees with plan additional verbal discharged in instructions were given. Critical care attestation.: If time is entered above; I have spent that time in minutes in the direct care of this critically ill patient, excluding procedure time. ED Disposition Clinical Impression: Neuropathy, Anemia in ESRD (end-stage renal disease), Diabetes 1.5, managed as type 2, End-stage renal disease on hemodialysis Lower back pain Qualifiers: Chronicity: chronic Back pain laterality: unspecified Sciatica presence: with sciatica Sciatica laterality: bilateral sciatica Qualified Code(s): M54.41 - Lumbago with sciatica, right side Disposition: DC-01 TO HOME OR SELFCARE Is pt being admited?: No Does the pt Need Aspirin: No Condition: Stable Instructions: Diabetes Mellitus Type 2 in Adults (ED) Referrals: PRIMARY CARE, [Primary Care Provider] - 3-5 Days
[2017-03-15 21:03] LABS: Blastocytes % (Manual) 0 %
[2017-03-15 21:04] LABS: Basophils % (Manual) 0 % (0.0-1.8); Eosinophils % (Manual) 0 % (0.0-4.3); Hypochromasia 2+; Macrocytosis 1+
[2017-03-15 21:05] LABS: Anisocytosis 1+; Poikilocytosis Few; Polychromasia Few; Tear Drop Cells Few
[2017-03-15 21:06] LABS: Diff Status Complete
[2017-03-15 21:26] LABS: Chloride 96.8 mmol/L (98-107); Potassium 4.3 mmol/L (3.6-5.0)
[2017-03-15 22:12] VITALS: BP 124/80
[2017-03-15] MEDS ORDERED: NORCO 10/325 PO ONE (22:26)
[2017-03-15] MEDS ORDERED: NORCO 10/325 ONE (22:42)
== END 2017-03-15 22:44 | disposition home or self-care (01) ==
LOC: ED 00:28
DX: M54.41 Lumbago with sciatica, right side (principal); E11.22 Type 2 diabetes mellitus with diabetic chronic kidney disease; I12.0 Hypertensive chronic kidney disease with stage 5 chronic kidney disease or end stage renal disease; N18.6 End stage renal disease; Z99.2 Dependence on renal dialysis; D64.9 Anemia, unspecified
CPT/HCPCS: 36415; 71020; 80048; 85007; 85025; 96374; 99284; J3010